=== PATIENT | female | born 1950 | race Caucasian/White ===

== ENCOUNTER 2016-12-27 11:39 | Day surgery (SDC) | payer MEDICARE ==
--- NOTE | 2016-12-27 08:42 | HP ---
PROCEDURE DATE: 12/27/16 HISTORY OF PRESENT ILLNESS: The patient is a 66 y/o who originally had nodular area in left inguinal area back in July. Whether there was just a node or whether any potential knot was unclear. She was scheduled for left inguinal exploration, node biopsy, possible hernia repair if indicated, possible mesh. However, at that time, her insurance changed and canceled the procedure. The office apparently rescheduled her as her insurance stayed. PAST MEDICAL HISTORY: Chronic obstructive pulmonary disease. CURRENT MEDICATIONS: Symbicort, DuoNebs, ProAir, lisinopril for hypertension, aspirin as well as antacid medication. ALLERGIES: NKDA. PAST SURGICAL HISTORY: She has had a tubal and in the past. FAMILY HISTORY: Breast and lung cancer. SOCIAL HISTORY: No alcohol abuse currently. Had CT abdomen and pelvis that showed fecal stasis. She had had prior cholecystectomy apparently. No known reported inguinal hernia. There did appear to be some adenopathy on my review in the inguinal area. PHYSICAL EXAMINATION: GENERAL: No acute distress. HEENT: Sclerae nonicteric. NECK: No JVD. CHEST: Equal excursion. Nonlabored breathing. CVS: Regular rate and rhythm. ABDOMEN: Soft. Left inguinal nodule or nodes. Unclear whether any small inguinal hernia or not. EXTREMITIES: No edema. NEURO: Alert, moving extremities grossly symmetrically. IMPRESSION: 1. LEFT INGUINAL ACHES. QUESTION OF WHETHER SHE HAS SOME ADENOPATHY. MAY OR MAY NOT HAVE SMALL HERNIA. FEEL SHE WOULD BENEFIT FROM LEFT INGUINAL EXPLORATION, POSSIBLE NODE BIOPSY, POSSIBLE HERNIA REPAIR IF INDICATED AT THE TIME. General risks of bleeding; infection; risk of hematoma or seroma formation or lymphocele formation; risk of lymphedema possibly requiring other treatments or compression therapy; possibility that should she have a hernia, may need mesh repair with risk of mesh infection possibly requiring removal; risk of ingrown hair or suture reaction; risk of aches, pains, burning, or numbness lower abdomen, groin, thigh, or pubic area possibly mcc or chronic in nature; possibility if she does have a hernia, may need to divide the round ligament to completely close the internal ring to minimize risk of recurrence pending operative findings. Otherwise, general risks of anesthesia, deep vein thrombosis, pulmonary embolism, or pneumonia; risk of aches, pains, burning, or numbness possibly long-term or chronic in nature possibly interfering with sexual function as well as if she does have a hernia and it is repaired, risk of recurrence.
[~2016-12-27 11:39] MED LIST: CEFAZOLIN 2 GM-D5W BAG** 50 ML IV ONE; Lactated Ringers 1,000 ML IV ONE; Pepcid 20 MG VIAL IV ONE; Sensorcaine 0.25% 10 ML ONE; Sodium Chloride 3 ML UD NEBULES IH ONE; Xopenex 1.25 MG/0.5 ML UD NEBULE IH ONE
[2016-12-27] MEDS ORDERED: Lactated Ringers 1,000 ML IV SCH (12:00)
[2016-12-27] MEDS ORDERED: CEFAZOLIN 2 GM-D5W BAG** 50 ML IV ONE (12:26)
[2016-12-27 15:30] VITALS: BP 116/69; PULSE 77; O2SAT 95
== END 2016-12-27 13:55 | disposition home or self-care (01) ==
LOC: SDC 11:39
PROVIDERS: ATTEND Surgery
DX: R59.0 Localized enlarged lymph nodes (principal); Z53.09 Procedure and treatment not carried out because of other contraindication; I10 Essential (primary) hypertension; J45.909 Unspecified asthma, uncomplicated; J44.9 Chronic obstructive pulmonary disease, unspecified
CPT/HCPCS: 94640; J0690

== ENCOUNTER 2016-12-28 07:24 | Observation (INO) | payer MEDICARE ==
[2016-12-28] MEDS ORDERED: FEVERALL 650 MG PR STA (07:52)
[2016-12-28] MEDS ORDERED: Zofran 4 MG/2 ML VIAL IV STA (07:52)
[2016-12-28] MEDS ORDERED: DUONEB 0.5-3 MG/3 ml Neb IH ONE ×2 (07:53→08:09)
[2016-12-28] MEDS ORDERED: FEVERALL 650 MG ONE (07:58)
[2016-12-28] MEDS ORDERED: FEVERALL 325 MG ONE (07:58)
[2016-12-28] MEDS ORDERED: Zofran 4 MG/2 ML VIAL ONE (07:58)
[2016-12-28] MEDS ORDERED: Sodium Chloride 0.9% 1000 ML 1,000 ML ONE (07:58)
--- NOTE | 2016-12-28 08:00 | ERPHSYRPT ---
- History of Present Illness Time Seen by Provider: 12/28/16 07:43 Source: patient, family (grand-daughter) Patient Subjective Stated Complaint: PT REPORTS SHE HAS HAD INCREASED COUGHING- LOW GRADE FEVER-UNABLE TO HAVE HERNIA SURGERY YESTERDAY-BEGAN VOMITING/DRY HEAVING THIS AM-STATES WHEN SHE VOMITS SHE HAS A HARD TIME GETTING HER BREATH BACK-STATES THAT SHE THINKS SHE HAS BRONCHITIS Triage Nursing Assessment: PT PALE WARM ET DRY-DRY HEAVES NOTED-ABD TENDER TO PALP-LUNGS DIMINISHED Physician History: CC: general weakness Hx: 66 y/o patient of Dr Su. She has hx of COPD. She was scheduled for hernia repair yesterday but had wet cough and elevated BUN/Creat so surgery was canceled and she was scheduled to see Dr Su today. She has increasing loose cough, dry heaves. Fever and chills. Severe general weakness so that she can not even sit up. Used her nebulizer this AM. No abd pain. Coughing phlegm. Timing/Duration: day(s) (2) Severity: severe Allergies/Adverse Reactions: clarithromycin [From Biaxin] Allergy (Intermediate, Verified 12/28/16 07:41) constipation cephalexin monohydrate [From Keflex] Adverse Reaction (Mild, Verified 12/28/16 07:41) constipation Home Medications: Aspirin 81 mg PO DAILY 03/09/16 [History] Budesonide/Formoterol Fumarate [Symbicort 160-4.5 Mcg Inhaler] 6 gm IH BID 03/09 [History] Ipratropium/Albuterol Sulfate [Iprat-Albut 0.5-3(2.5) mg/3 ml] 3 ml NEB UD 03/09 [History] Lisinopril/Hydrochlorothiazide [Lisinopril-Hctz 10-12.5 mg Tab] 1 each PO DAILY 03/09/16 [History] Hx Tetanus, Diphtheria Vaccination/Date Given: No Hx Influenza Vaccination/Date Given: Yes Hx Pneumococcal Vaccination/Date Given: Yes Immunizations Up to Date: Yes - Review of Systems Constitutional: Fever, Chills, Malaise, Weakness Eyes: No Symptoms Ears, Nose, & Throat: Nose Congestion Respiratory: Cough, Dyspnea, Wheezing Cardiac: No Chest Pain Abdominal/Gastrointestinal: Nausea, Vomiting, No Abdominal Pain, No Diarrhea Genitourinary Symptoms: No Dysuria Skin: No Rash Neurological: No Focal Weakness, No Headache, No Parasthesia All Other Systems: Reviewed and Negative - Past Medical History Pertinent Past Medical History: Yes Neurological History: No Pertinent History ENT History: Glaucoma Cardiac History: Hypertension Respiratory History: Asthma, COPD Endocrine Medical History: No Pertinent History Musculoskeletal History: Arthritis GI Medical History: GERD, Hernia History: No Pertinent History Psycho-Social History: No Pertinent History Female Reproductive Disorders: No Pertinent History - Past Surgical History Past Surgical History: Yes Neuro Surgical History: No Pertinent History Cardiac: No Pertinent History Respiratory: No Pertinent History Gastrointestinal: Cholecystectomy Genitourinary: No Pertinent History Musculoskeletal: No Pertinent History Female Surgical History: Section - Social History Smoking Status: Former smoker Exposure to second hand smoke: Yes Drug Use: none Patient Lives Alone: No - Nursing Vital Signs Nursing Vital Signs: Initial Vital Signs Temperature 101.2 F Temperature Source Rectal Pulse Rate 83 Respiratory Rate 26 Blood Pressure [] 97/52 Pain Intensity 5 - Physical Exam General Appearance: alert, other (frail, elderly lady appears short of breath and weak all over) Eye Exam: PERRL/EOMI Ears, Nose, Throat Exam: dry mucous membranes Neck Exam: normal inspection, non-tender, supple Respiratory Exam: respiratory distress (tachypneic), diminished breath sounds Cardiovascular Exam: regular rate/rhythm Gastrointestinal/Abdomen Exam: soft, No tenderness, No distention Back Exam: normal inspection Extremity Exam: normal inspection, normal range of motion Neurologic Exam: alert, oriented x 3, cooperative, sensation nml, No motor deficits Skin Exam: warm, dry, No rash SpO2 Interpretation: hypoxic, O2 applied SpO2: 91 Oxygen Delivery: Room Air - Course Nursing assessment & vital signs reviewed: Yes EKG Interpreted by Me: RATE (86), Sinus Rhythm, NORMAL AXIS, NORMAL INTERVALS ( QT 436), Non-specific ST Changes, Other (artifact obscures) - Radiology Exams cxr X-ray Interpretation: Discussed w/ radiologist (left midlung A/I, COPD) Ordered Tests: Active Orders 24 hr Category Date Time Status Piece Marker Small Arms STAT Care 12/28/16 07:52 Active Cath for Specimen-Straight STAT Care 12/28/16 07:52 Active EKG-ER Only STAT Care 12/28/16 07:52 Active IV Insertion STAT Care 12/28/16 07:52 Active Oxygen-ED Only NASAL CANNULA 2 lpm Care 12/28/16 07:52 Active Pulse Oximetry (ED) STAT Care 12/28/16 07:52 Active Rectal Temperature STAT Care 12/28/16 07:52 Active CHEST 1 VIEW (PORTABLE) Stat Exams 12/28/16 07:52 Completed BLOOD CULTURE Stat Lab 12/28/16 08:23 Received CBC W DIFF Stat Lab 12/28/16 08:00 Completed CMP Stat Lab 12/28/16 08:00 Completed CULTURE,URINE Stat Lab 12/28/16 08:15 Received Lactic Acid Urgent Lab 12/28/16 08:02 Completed MAGNESIUM Stat Lab 12/28/16 08:00 Completed TROPONIN Stat Lab 12/28/16 08:00 Completed UA Stat Lab 12/28/16 08:15 Completed VENOUS BLOOD GAS Stat Lab 12/28/16 08:02 Completed Respiratory Nebulizer STAT RT 12/28/16 07:54 Completed Respiratory Nebulizer STAT RT 12/28/16 09:37 Completed Medication Summary Generic Name Dose Route Start Last Admin Trade Name Freq PRN Reason Stop Dose Admin Sodium Chloride 1,000 mls @ 100 mls/hr 12/28/16 08:00 12/28/16 08:03 Sodium Chloride 0.9% 1000 Ml IV 01/27/17 07:59 100 mls/hr .Q10H SERGIO Administration Oseltamivir Phosphate 75 mg 12/28/16 10:00 12/28/16 09:44 Tamiflu 75mg Capsule PO 01/27/17 09:59 75 mg BID SERGIO Administration Discontinued Medications Generic Name Dose Route Start Last Admin Trade Name Freq PRN Reason Stop Dose Admin Acetaminophen 975 mg 12/28/16 07:52 12/28/16 08:04 Feverall 650 Mg CA 12/28/16 07:53 975 mg STAT STA Administration Acetaminophen Confirm 12/28/16 07:58 Feverall 650 Mg Administered 12/28/16 07:59 Dose 650 mg .ROUTE .STK-MED ONE Acetaminophen Confirm 12/28/16 07:58 Feverall 325 Mg Administered 12/28/16 07:59 Dose 325 mg .ROUTE .STK-MED ONE Albuterol Sulfate 2.5 mg 12/28/16 09:37 12/28/16 09:40 Proventil 2.5 Mg/3 Ml Neb IH 12/28/16 09:38 2.5 mg STAT ONE Administration Albuterol Sulfate Confirm 12/28/16 09:38 Proventil 2.5 Mg/3 Ml Neb Administered 12/28/16 09:39 Dose 2.5 mg IH .STK-MED ONE Albuterol/Ipratropium 3 ml 12/28/16 07:53 12/28/16 08:21 Duoneb 0.5-3 Mg/3 Ml Neb IH 12/28/16 07:54 3 ml STAT ONE Administration Albuterol/Ipratropium Confirm 12/28/16 08:09 Duoneb 0.5-3 Mg/3 Ml Neb Administered 12/28/16 08:10 Dose 3 ml IH .STK-MED ONE Sodium Chloride Confirm 12/28/16 07:58 Sodium Chloride 0.9% 1000 Ml Administered 12/28/16 07:59 Dose 1,000 mls @ ud .ROUTE .STK-MED ONE Methylprednisolone Sodium Succinate 125 mg 12/28/16 09:37 12/28/16 09:44 Solu-Medrol 125 Mg IV 12/28/16 09:38 125 mg STAT ONE Administration Methylprednisolone Sodium Succinate Confirm 12/28/16 09:41 Solu-Medrol 125 Mg Administered 12/28/16 09:42 Dose 125 mg .ROUTE .STK-MED ONE Ondansetron HCl 4 mg 12/28/16 07:52 12/28/16 08:04 Zofran 4 Mg/2 Ml Vial IV 12/28/16 07:53 4 mg STAT STA Administration Ondansetron HCl Confirm 12/28/16 07:58 Zofran 4 Mg/2 Ml Vial Administered 12/28/16 07:59 Dose 4 mg .ROUTE .STK-MED ONE Oseltamivir Phosphate Confirm 12/28/16 09:41 Tamiflu 75mg Capsule Administered 12/28/16 09:42 Dose 75 mg PO .STK-MED ONE Lab/Rad Data: Laboratory Result Diagrams 12/28/16 08:00 12/28/16 08:00 Laboratory Results 12/28/16 12/28/16 12/28/16 Range/Units 08:15 08:02 08:02 WBC (4.0-10.5) K/mm3 RBC (4.1-5.4) M/mm3 Hgb (12.0-16.0) gm/dl Hct (35-47) % MCV (78-100) fl MCH (26-32) pg MCHC (32-36) g/dl RDW (11.5-14.0) % Plt Count (150-450) K/mm3 MPV (6-9.5) fl Gran % (36.0-66.0) % Lymphocytes % (24.0-44.0) % Monocytes % (0.0-12.0) % Eosinophils % (0.00-5.0) % Basophils % (0.0-0.4) % Basophils # (0-0.4) VBG pH 7.45 H (7.32-7.42) VBG pCO2 at Pat Temp 37 L (42-55) mm/Hg VBG pO2 at Pat Temp 40 (25-40) mm/Hg VBG HCO3 25.7 (22-28) meq/L VBG O2 Sat (Moni) 81.7 L (95-100) VBG Base Excess 1.8 (-2.0-2.0) VBG Hemoglobin 14.0 VBG Carboxyhemoglobin 3.2 (0.0-6.9) % T HGB POC Potassium 3.4 L (3.5-5.1) Sodium (136-145) mEq/L Potassium (3.5-5.1) mEq/L Chloride (98-107) mEq/L Carbon Dioxide (21-32) mEq/L Anion Gap (5-15) MEQ/L BUN (9-20) mg/dL Creatinine (0.55-1.30) mg/dl Estimated GFR ML/MIN Glucose (70-110) MG/DL Lactic Acid 1.2 (0.4-2.0) Calcium (8.5-10.1) mg/dL Magnesium (1.8-2.4) mg/dL Total Bilirubin (0.2-1.0) mg/dL AST (15-37) U/L ALT (12-78) U/L Alkaline Phosphatase (46-116) U/L Troponin I (0.000-0.056) ng/ml Serum Total Protein (6.4-8.2) gm/dL Albumin (3.4-5.0) g/dL Ur Collection Type CATH Urine Color YELLOW (YELLOW) Urine Appearance CLEAR (CLEAR) Urine pH 5.5 (5-6) Ur Specific [place] 1.015 (1.005-1.025) Urine Protein NEGATIVE (Negative) Urine Glucose (UA) NEGATIVE (NEGATIVE) mg/dL Urine Ketones NEGATIVE (NEGATIVE) Urine Nitrite NEGATIVE (NEGATIVE) Urine Bilirubin NEGATIVE (NEGATIVE) Urine Urobilinogen 0.2 (0-1) mg/dL Urine WBC (Auto) NEGATIVE (NEGATIVE) Urine RBC (Auto) NEGATIVE (0-5) Armando/ul Influenza Type A Ag (NEGATIVE) Influenza Type B Ag (NEGATIVE) RSV (PCR) (Negative) Specimen Received 12/28/16 0812/28/16 12/28/16 12/28/16 Range/Units 08:00 08:00 08:00 WBC (4.0-10.5) K/mm3 RBC (4.1-5.4) M/mm3 Hgb (12.0-16.0) gm/dl Hct (35-47) % MCV (78-100) fl MCH (26-32) pg MCHC (32-36) g/dl RDW (11.5-14.0) % Plt Count (150-450) K/mm3 MPV (6-9.5) fl Gran % (36.0-66.0) % Lymphocytes % (24.0-44.0) % Monocytes % (0.0-12.0) % Eosinophils % (0.00-5.0) % Basophils % (0.0-0.4) % Basophils # (0-0.4) VBG pH (7.32-7.42) VBG pCO2 at Pat Temp (42-55) mm/Hg VBG pO2 at Pat Temp (25-40) mm/Hg VBG HCO3 (22-28) meq/L VBG O2 Sat (Moni) (95-100) VBG Base Excess (-2.0-2.0) VBG Hemoglobin VBG Carboxyhemoglobin (0.0-6.9) % T HGB POC Potassium (3.5-5.1) Sodium (136-145) mEq/L Potassium (3.5-5.1) mEq/L Chloride (98-107) mEq/L Carbon Dioxide (21-32) mEq/L Anion Gap (5-15) MEQ/L BUN (9-20) mg/dL Creatinine (0.55-1.30) mg/dl Estimated GFR ML/MIN Glucose (70-110) MG/DL Lactic Acid (0.4-2.0) Calcium (8.5-10.1) mg/dL Magnesium 1.6 L (1.8-2.4) mg/dL Total Bilirubin (0.2-1.0) mg/dL AST (15-37) U/L ALT (12-78) U/L Alkaline Phosphatase (46-116) U/L Troponin I < 0.017 (0.000-0.056) ng/ml Serum Total Protein (6.4-8.2) gm/dL Albumin (3.4-5.0) g/dL Ur Collection Type Urine Color (YELLOW) Urine Appearance (CLEAR) Urine pH (5-6) Ur Specific [place] (1.005-1.025) Urine Protein (Negative) Urine Glucose (UA) (NEGATIVE) mg/dL Urine Ketones (NEGATIVE) Urine Nitrite (NEGATIVE) Urine Bilirubin (NEGATIVE) Urine Urobilinogen (0-1) mg/dL Urine WBC (Auto) (NEGATIVE) Urine RBC (Auto) (0-5) Armando/ul Influenza Type A Ag POSITIVE (NEGATIVE) Influenza Type B Ag NEGATIVE (NEGATIVE) RSV (PCR) NEGATIVE (Negative) Specimen Received 12/28/16 12/28/16 Range/Units 08:00 08:00 WBC 14.8 H (4.0-10.5) K/mm3 RBC 4.18 (4.1-5.4) M/mm3 Hgb 13.7 (12.0-16.0) gm/dl Hct 40.9 (35-47) % MCV 97.8 (78-100) fl MCH 32.8 H (26-32) pg MCHC 33.5 (32-36) g/dl RDW 13.4 (11.5-14.0) % Plt Count 284 (150-450) K/mm3 MPV 10.4 H (6-9.5) fl Gran % 87.9 H (36.0-66.0) % Lymphocytes % 5.9 L (24.0-44.0) % Monocytes % 5.0 (0.0-12.0) % Eosinophils % 1.1 (0.00-5.0) % Basophils % 0.1 (0.0-0.4) % Basophils # 0.02 (0-0.4) VBG pH (7.32-7.42) VBG pCO2 at Pat Temp (42-55) mm/Hg VBG pO2 at Pat Temp (25-40) mm/Hg VBG HCO3 (22-28) meq/L VBG O2 Sat (Moni) (95-100) VBG Base Excess (-2.0-2.0) VBG Hemoglobin VBG Carboxyhemoglobin (0.0-6.9) % T HGB POC Potassium (3.5-5.1) Sodium 140 (136-145) mEq/L Potassium 3.5 (3.5-5.1) mEq/L Chloride 105 (98-107) mEq/L Carbon Dioxide 24.2 (21-32) mEq/L Anion Gap 13.9 (5-15) MEQ/L BUN 20 (9-20) mg/dL Creatinine 0.88 (0.55-1.30) mg/dl Estimated GFR > 60 ML/MIN Glucose 115 H (70-110) MG/DL Lactic Acid (0.4-2.0) Calcium 9.0 (8.5-10.1) mg/dL Magnesium (1.8-2.4) mg/dL Total Bilirubin 0.4 (0.2-1.0) mg/dL AST 33 (15-37) U/L ALT 32 (12-78) U/L Alkaline Phosphatase 70 (46-116) U/L Troponin I (0.000-0.056) ng/ml Serum Total Protein 7.3 (6.4-8.2) gm/dL Albumin 3.9 (3.4-5.0) g/dL Ur Collection Type Urine Color (YELLOW) Urine Appearance (CLEAR) Urine pH (5-6) Ur Specific [place] (1.005-1.025) Urine Protein (Negative) Urine Glucose (UA) (NEGATIVE) mg/dL Urine Ketones (NEGATIVE) Urine Nitrite (NEGATIVE) Urine Bilirubin (NEGATIVE) Urine Urobilinogen (0-1) mg/dL Urine WBC (Auto) (NEGATIVE) Urine RBC (Auto) (0-5) Armando/ul Influenza Type A Ag (NEGATIVE) Influenza Type B Ag (NEGATIVE) RSV (PCR) (Negative) Specimen Received - Progress Progress Note: 12/28/16 09:39 Flu positive. Explained labs to pt and daughter. She is considering home or admission. 12/28/16 10:11 Pt feels some better. Still too weak. Called Dr Su for observation for flu and COPD exacerbation. Discussed with .: Zay Will see patient in: hospital (observation) Counseled pt/family regarding: lab results, diagnosis, need for follow-up, rad results - Departure Time of Disposition: 10:11 Departure Disposition: Observation Clinical Impression: COPD with exacerbation, Influenza A Condition: Fair Critical Care Time: No Referrals: RON SU [Primary Care Provider] -
[2016-12-28 08:03] LABS: VBG BASE EXCESS 1.8 (-2.0-2.0); VBG CARBOXYHEMOGLOBIN 3.2 % T HGB (0.0-6.9); VBG HCO3- 25.7 meq/L (22-28); VBG O2 SATURATION 81.7 (95-100); VBG POTASSIUM 3.4 (3.5-5.1); VBG pH 7.45 (7.32-7.42)
[2016-12-28] MEDS: Sodium Chloride 0.9% 1000 ML 1,000 ML IV SCH ×2 (08:03→23:02)
[2016-12-28 08:14] LABS: BASOPHIL % 0.1 % (0.0-0.4); Eosinophil % 1.1 % (0.00-5.0); Granulocytes % 87.9 % (36.0-66.0); Lymphocytes % 5.9 % (24.0-44.0); Mean Cell Volume 97.8 fl (78-100); Mean Corpuscular Hemoglobin 32.8 pg (26-32); Mean Platelet Volume 10.4 fl (6-9.5); Platelet Count 284 K/mm3 (150-450); Red Blood Count 4.18 M/mm3 (4.1-5.4); Red Cell Distribution Width 13.4 % (11.5-14.0); White Blood Count 14.8 K/mm3 (4.0-10.5)
[2016-12-28 08:24] LABS: COMPLETE URINE MICROSCOPIC? NO; Collection Type CATH; Ph 5.5 (5-6)
[2016-12-28 08:34] LABS: ALBUMIN 3.9 g/dL (3.4-5.0); ALKALINE PHOSPHATASE 70 U/L (46-116); ANION GAP 13.9 MEQ/L (5-15); BILIRUBIN,TOTAL 0.4 mg/dL (0.2-1.0); BLOOD UREA NITROGEN 20 mg/dL (9-20); CHLORIDE 105 mEq/L (98-107); Carbon Dioxide 24.2 mEq/L (21-32); Glucose 115 MG/DL (70-110); Potassium 3.5 mEq/L (3.5-5.1); SGOT/AST 33 U/L (15-37); SGPT/ALT 32 U/L (12-78); SODIUM 140 mEq/L (136-145); Total Protein 7.3 gm/dL (6.4-8.2)
--- NOTE | 2016-12-28 08:44 | XRAY ---
Indication: Cough, short of breath, and flulike symptoms. Comparison: March 09, 2016. Portable chest again hyperinflated with a few calcified granulomas. New subtle left mid peripheral infiltrate versus atelectasis. Remaining lungs clear. Heart and mediastinal structures within normal limits for AP portable technique. Bony thorax intact. Impression: Left midlung peripheral infiltrate/atelectasis. Correlate clinically. Stable COPD and evidence for old granulomatous disease.
[2016-12-28] MEDS ORDERED: solu-MEDROL 125 MG IV ONE (09:37)
[2016-12-28] MEDS ORDERED: PROVENTIL 2.5 MG/3 ML NEB IH ONE ×2 (09:37→09:38)
[2016-12-28] MEDS ORDERED: Tamiflu 75MG Capsule PO ONE (09:41)
[2016-12-28] MEDS ORDERED: solu-MEDROL 125 MG ONE (09:41)
[2016-12-28] MEDS: Tamiflu 75MG Capsule PO SCH ×2 (09:44→22:53)
[2016-12-28] MEDS ORDERED: Vibramycin 100 MG ONE (10:16)
[2016-12-28] MEDS: Vibramycin 100 MG PO SCH (10:18)
[2016-12-28] MEDS ORDERED: TYLENOL 325 MG PO PRN (10:35)
[2016-12-28] MEDS ORDERED: Zofran 4 MG/2 ML VIAL IV PRN (10:35)
[2016-12-28] MEDS: solu-MEDROL 125 MG IV SCH ×2 (11:30→17:06)
[2016-12-28] MEDS: Protonix 40MG Tablet PO SCH (12:12)
[2016-12-28] MEDS ORDERED: NORCO 5/325 MG PO PRN (12:42)
[2016-12-28] MEDS ORDERED: Sodium Chloride 0.9% 500 ML 500 ML IV ONE (12:58)
--- NOTE | 2016-12-28 13:49 | HP ---
HISTORY OF PRESENT ILLNESS: This is a 66 year-old lady who developed increasing cough with shortness of breath last night. She states she is also having chills. She presented to the emergency department for evaluation and was found to have left mid lung infiltrate versus atelectasis and positive for influenza A. The patient yesterday had outpatient surgery for a scheduled surgery for inguinal mass/possible hernia but was sent home without having a surgery as they noted she was still wheezing on her lung exam. She has a history of long standing chronic obstructive pulmonary disease and used to see a mgmt consultant before she moved here. She is actually on long-term disability because of the chronic obstructive pulmonary disease. The patient reports that she had some chest pain across the top of her chest like she is coming down with bronchitis. She also had some vomiting and then some dry heaves. She reports that she is feeling a little bit better with Albuterol treatments here but did feel very weak and tired. REVIEW OF SYSTEMS: She denies any abdominal pain. She had some tenderness below where the left inguinal hernia/mass located. She has a cough that is nonproductive. No diarrhea. No rashes. No lower extremity edema. She has some fatigue. PAST MEDICAL HISTORY: Chronic obstructive pulmonary disease. She has hospitalized one to two times. History of having a mgmt consultant in [place]. Hypertension. Osteoporosis. PAST SURGICAL HISTORY: section. Cholecystectomy. Tubal ligation. MEDICATIONS: Aspirin 81 mg p.o. daily, Symbicort 6 gm inhaled b.i.d., DuoNeb as directed, lisinopril hydrochlorothiazide 10/12.5 mg 1 tablet p.o. daily. ALLERGIES: KEFLEX, BIAXIN. SOCIAL HISTORY: She quit smoking October 2016. She is retired and is on disability. Denies any alcohol use. FAMILY HISTORY: Her mother had breast cancer. Father had lung cancer. She has a sister with osteoporosis. PHYSICAL EXAMINATION: VITAL SIGNS: Temperature current 98.6F, temperature max 101.2F, heart rate 78 to 84, respiratory rate 18 to 26, blood pressure 85 to 97 over 41 to 60. Oxygen saturation 91 to 94% on room air. GENERAL: The patient is a pleasant lady lying in bed with tachypnea with mild retractions. LUNGS: Distant breath sounds. No crackles or wheezes are appreciated. Breath sounds are equal. CVS: Heart has a regular rate and rhythm. No murmurs, gallops or rubs. She has +2 radial pulses bilaterally. ABDOMEN: Soft, nontender, nondistended. The left inguinal area has a palpable nodule that is slightly tender without any overlying erythema. It has been marked from possible surgery that was scheduled for yesterday. EXTREMITIES: No clubbing, cyanosis or edema. SKIN: Warm, dry and intact. LABORATORY DATA AND TESTS: White blood cell count was 14,800 with 87% granulocytes, 5% lymphocytes. Glucose 115, magnesium 1.6, troponin less than 0.017. UA was negative. Influenza A was positive. Respiratory syncytial virus and influenza B were negative. Chest x-ray was read as left mid lung peripheral infiltrate/atelectasis, stable chronic obstructive pulmonary disease. Please see the radiologist dictation for full report. ASSESSMENT AND PLAN: 1) Influenza A. Will continue with Tamiflu 75 mg p.o. b.i.d., continue with breathing treatments as needed. 2) Chronic obstructive pulmonary disease exacerbation. She has been started on doxycycline as well as IV Solu-Medrol. She has an outpatient mgmt consultant consult. Continue oxygen as needed and breathing treatments. 3) Pneumonia. Will continue with the doxycycline, will check CBC in the morning. 4) Deep venous thrombosis prophylaxis. Will start her on Lovenox.
[2016-12-28] MEDS: ENOXAPARIN SODIUM SQ SCH (14:21)
[2016-12-28] MEDS: ECOTRIN 81 MG PO SCH (14:21)
[2016-12-28] MEDS: DUONEB 0.5-3 MG/3 ml Neb IH SCH ×3 (14:46→19:05)
[2016-12-28] MEDS: PATIENT OWN MEDICATION IH SCH (19:05)
[2016-12-28] MEDS ORDERED: NON-FORMULARY ITEM (Budesonide/Formoterol Fumarate [Symbicort 160-4.5 Mcg Inhaler] 6 GM) IH SCH (22:00)
[2016-12-29] MEDS: DUONEB 0.5-3 MG/3 ml Neb IH SCH ×7 (00:17→22:51)
[2016-12-29] MEDS: solu-MEDROL 125 MG IV SCH ×5 (00:45→23:57)
[2016-12-29 06:00] LABS: Mean Cell Volume 99.1 fl (78-100); Mean Corpuscular Hemoglobin 33.1 pg (26-32); Mean Platelet Volume 10.5 fl (6-9.5); Platelet Count 224 K/mm3 (150-450); Red Blood Count 3.35 M/mm3 (4.1-5.4); Red Cell Distribution Width 13.6 % (11.5-14.0); White Blood Count 11.8 K/mm3 (4.0-10.5)
[2016-12-29 06:10] LABS: BLOOD UREA NITROGEN 20 mg/dL (9-20); CHLORIDE 109 mEq/L (98-107); Carbon Dioxide 23.2 mEq/L (21-32); Glucose 125 MG/DL (70-110); Potassium 3.6 mEq/L (3.5-5.1); SODIUM 141 mEq/L (136-145)
[2016-12-29 06:40] LABS: ANISOCYTOSIS 1+; BAND 2 % (0.0-2.0); Platelet Estimate NORMAL (NORMAL); Poikilocytosis 1+; Total Cells Counted 100
[2016-12-29] MEDS: PATIENT OWN MEDICATION IH SCH ×2 (07:00→19:41)
[2016-12-29] MEDS: Vibramycin 100 MG PO SCH ×2 (08:54→22:08)
[2016-12-29] MEDS: ENOXAPARIN SODIUM SQ SCH (08:54)
[2016-12-29] MEDS: Protonix 40MG Tablet PO SCH (08:55)
[2016-12-29] MEDS: Tamiflu 75MG Capsule PO SCH (08:55)
[2016-12-29] MEDS: Sodium Chloride 0.9% 1000 ML 1,000 ML IV SCH (08:55)
[2016-12-29] MEDS: ECOTRIN 81 MG PO SCH (08:55)
[2016-12-29] MEDS ORDERED: Dextrose 5% -0.45 NaCl 1000 ML 1,000 ML IV SCH (09:15)
[2016-12-29] MEDS ORDERED: PREVNAR 13 SYRINGE IM ONE (10:00)
--- NOTE | 2016-12-29 17:05 | PCM.NOTE ---
Date and Time: 12/29/16 1701 Subjective Assessment: She reports she got some rest last night. She still feels tired. She had a desaturation to the 80% last night and had to be placed back on oxygen. - Review of Systems Constitutional: Fever, Fatigue Eyes: No Symptoms Ears, Nose, & Throat: No Symptoms Respiratory: Cough, Short Of Breath Cardiac: No Symptoms Abdominal/Gastrointestinal: No Symptoms Genitourinary Symptoms: No Symptoms Musculoskeletal: No Symptoms Skin: No Symptoms Neurological: No Symptoms Objective Exam General Appearance: no apparent distress Neurologic Exam: alert, cooperative Skin Exam: normal color, warm, dry, No rash Respiratory Exam: diminished breath sounds, prolonged expirations, No respiratory distress, No accessory muscle use, No crackles/rales, No rhonchi, No wheezing Cardiovascular Exam: regular rate/rhythm, normal heart sounds, No murmur, No friction rub, No gallop Gastrointestinal/Abdomen Exam: soft, normal bowel sounds, No tenderness, No distention, No mass, No guarding Extremity Exam: other (no c/c/e) OBJECTIVE DATA Vital Signs: Vital Signs - 24 hr Temp Pulse Resp BP Pulse Ox 12/29/16 16:03 97.8 F 58 L 20 108/55 96 12/29/16 14:56 20 L 16 89 L 12/29/16 12:16 97.9 F 74 20 109/54 96 12/29/16 10:52 73 16 94 L 12/29/16 07:21 98.1 F 93 H 20 90/68 97 12/29/16 07:13 71 18 97 12/29/16 04:00 99.4 F 86 18 90/49 97 12/29/16 03:49 71 20 97 12/29/16 00:17 85 20 87 L 12/29/16 00:00 23 12/28/16 23:53 98.9 F 84 23 90/46 95 12/28/16 20:00 26 H 12/28/16 19:55 99.1 F 88 26 H 97/52 96 12/28/16 19:05 88 26 H 96 Oxygen-Last 24 hours O2 Percentage 2 Liters = 28% O2 Percentage 2 Liters = 28% O2 Percentage 2 Liters = 28% O2 Percentage 2 Liters = 28% O2 Percentage 2 Liters = 28% Pain Assessment - Last Documented Pain Intensity 0 Pain Scale Used 0-10 Pain Scale Intake and Output: Intake & Output 12/27/16 12/28/16 12/29/16 12/30/16 06:59 06:59 06:59 06:59 Intake Total 3264 840 Output Total 500 Balance 3264 340 Weight 44.407 kg Lab Results: Lab Results-Last 24 Hours 12/29/16 12/29/16 Range/Units 05:30 05:30 WBC 11.8 H (4.0-10.5) K/mm3 RBC 3.35 L (4.1-5.4) M/mm3 Hgb 11.1 L (12.0-16.0) gm/dl Hct 33.2 L (35-47) % MCV 99.1 (78-100) fl MCH 33.1 H (26-32) pg MCHC 33.4 (32-36) g/dl RDW 13.6 (11.5-14.0) % Plt Count 224 (150-450) K/mm3 MPV 10.5 H (6-9.5) fl Segmented Neutrophils 97 H (36.0-66.0) % Band Neutrophils 2 (0.0-2.0) % Monocytes (Manual) 1 (0.0-12.0) % Platelet Estimate NORMAL (NORMAL) Poikilocytosis 1+ Anisocytosis 1+ Sodium 141 (136-145) mEq/L Potassium 3.6 (3.5-5.1) mEq/L Chloride 109 H (98-107) mEq/L Carbon Dioxide 23.2 (21-32) mEq/L Anion Gap 12.0 (5-15) MEQ/L BUN 20 (9-20) mg/dL Creatinine 0.85 (0.55-1.30) mg/dl Estimated GFR > 60 ML/MIN Glucose 125 H (70-110) MG/DL Calcium 8.3 L (8.5-10.1) mg/dL Assessment/Plan (1) Influenza A Current Visit: Yes Status: Acute Assessment & Plan: Continue Tamiflu and symptomatic and supportive treatment. Slowly improving. Code(s): J10.1 - FLU DUE TO OTH IDENT INFLUENZA VIRUS W OTH RESP MANIFEST (2) COPD with exacerbation Current Visit: Yes Status: Acute Assessment & Plan: Continue doxycycline and IV steroids. Code(s): J44.1 - CHRONIC OBSTRUCTIVE PULMONARY DISEASE W (ACUTE) EXACERBATION (3) Pneumonia Current Visit: Yes Status: Acute Qualifiers: Laterality: left Lung location: unspecified part of lung Assessment & Plan: Continue doxycycline. Code(s): J18.9 - PNEUMONIA, UNSPECIFIED ORGANISM (4) DVT prophylaxis Current Visit: Yes Status: Acute Code(s): [id number] -
[2016-12-29] MEDS: OSELTAMIVIR PHOSPHATE 30 MG CAP PO SCH (22:09)
[2016-12-30] MEDS: DUONEB 0.5-3 MG/3 ml Neb IH SCH ×3 (03:30→10:20)
[2016-12-30 05:42] LABS: BASOPHIL % 0.1 % (0.0-0.4); Granulocytes % 88.3 % (36.0-66.0); Lymphocytes % 6.5 % (24.0-44.0); Mean Cell Volume 99.7 fl (78-100); Mean Corpuscular Hemoglobin 32.4 pg (26-32); Mean Platelet Volume 10.8 fl (6-9.5); Monocytes % 5.1 % (0.0-12.0); Platelet Count 228 K/mm3 (150-450); Red Blood Count 3.39 M/mm3 (4.1-5.4); White Blood Count 10.9 K/mm3 (4.0-10.5)
[2016-12-30] MEDS: solu-MEDROL 125 MG IV SCH ×2 (05:53→11:25)
[2016-12-30 06:04] LABS: ANION GAP 13.2 MEQ/L (5-15); BLOOD UREA NITROGEN 18 mg/dL (9-20); CHLORIDE 109 mEq/L (98-107); Carbon Dioxide 24.8 mEq/L (21-32); Glucose 142 MG/DL (70-110); Potassium 3.6 mEq/L (3.5-5.1); SODIUM 143 mEq/L (136-145)
[2016-12-30] MEDS: PATIENT OWN MEDICATION IH SCH (06:45)
--- NOTE | 2016-12-30 09:48 | PCM.DCORD ---
- Discharge Discharge Date: 12/30/16 Disposition: Home, Self-Care Condition: Fair Prescriptions: New Prednisone 20 mg [Deltasone 20 mg] 20 mg PO UD #18 tablet Oseltamivir Phosphate [Oseltamivir Phosphate 30 mg Cap] 30 mg PO BID #5 capsule Doxycycline Hyclate 100 mg [Vibramycin 100 MG] 100 mg PO BID #15 tab Continue Budesonide/Formoterol Fumarate [Symbicort 160-4.5 Mcg Inhaler] 6 gm IH BID Ipratropium/Albuterol Sulfate [Iprat-Albut 0.5-3(2.5) mg/3 ml] 3 ml NEB UD Aspirin 81 mg PO DAILY Discontinued Lisinopril/Hydrochlorothiazide [Lisinopril-Hctz 10-12.5 mg Tab] 1 each PO DAILY Additional Instructions: Home oxygen per respiratory therapy home oxygen evaluation. Follow up with: RON SU [Primary Care Provider] - 01/07/17 10:30 am MARILYN VAUGHAN [ACTIVE STAFF] - 1 Week
[2016-12-30] MEDS: ECOTRIN 81 MG PO SCH (10:03)
[2016-12-30] MEDS: ENOXAPARIN SODIUM SQ SCH (10:03)
[2016-12-30] MEDS: Protonix 40MG Tablet PO SCH (10:04)
[2016-12-30] MEDS: OSELTAMIVIR PHOSPHATE 30 MG CAP PO SCH (10:05)
[2016-12-30] MEDS: Vibramycin 100 MG PO SCH (10:05)
[2016-12-30 11:08] VITALS: BP 106/58; PULSE 58; O2SAT 96
--- NOTE | 2016-12-30 11:45 | DS ---
DISCHARGE DIAGNOSES: 1) INFLUENZA A. 2) CHRONIC OBSTRUCTIVE PULMONARY DISEASE EXACERBATION. 3) PNEUMONIA. DISCHARGE PHYSICAL EXAMINATION: VITALS: Temperature current 97.8F, temperature max 98.7F, heart rate 58 to 94, respiratory rate 18 to 22, blood pressure 99 to 109 over 51 to 56. Oxygen saturation 85% on room air, 94% on 2 liters nasal cannula. GENERAL: The patient is sitting up in bed in no acute distress. CVS: She has a regular rate and rhythm. No murmurs, gallops or rubs are appreciated. CHEST: She has distant breath sounds with prolonged expiration. No crackles or wheezes. She has equal breath sounds. ABDOMEN: Soft, nontender, nondistended with normal bowel sounds. EXTREMITIES: She has some mild swelling of her toes but no pitting edema of her legs. SKIN: Warm, dry and intact. HOSPITAL COURSE: 1) INFLUENZA A: She tested positive for this in the emergency department. Tamiflu was first started at 75 mg b.i.d. and then adjusted for her creatinine clearance and approximately 40 per the pharmacy and she was changed to 30 mg b.i.d. and plan to finish out a five day course of this. She was afebrile within the last 24 hours before her discharge. 2) CHRONIC OBSTRUCTIVE PULMONARY DISEASE EXACERBATION: She has long standing history of chronic obstructive pulmonary disease. She does not have a local drilling assistant here but plans to see one as she is needing surgery clearance. She was started on IV steroids as well as doxycycline during her hospitalization. I plan to complete a ten day course of doxycycline 100 mg p.o. b.i.d. and start her on oral prednisone at 60 mg daily for three days and then 40 mg daily for three days and 20 mg daily for three days and will continue with breathing treatments. She is going to have home oxygen evaluation. She reports a long time ago she was home oxygen but then stopped using it. She stated it started to give her headaches, will plan to have this set up for her before her discharge. 3) PNEUMONIA: Her chest x-ray on admission was read as a left mid lung infiltrate with atelectasis. The patient again was started on doxycycline which was continued for a full ten day course. DISCHARGE MEDICATIONS: She may resume all of her home medications and take doxycycline, prednisone and Tamiflu as stated above. FOLLOW UP: She is to follow up with myself in the clinic as well as Dr. Ayush Oconnor as she needs surgery clearance for her chronic obstructive pulmonary disease. DISPOSITION: The patient was discharged to home in fair condition.
== END 2016-12-30 14:20 | disposition home or self-care (01) ==
LOC: ED 07:24 → MED SURG 10:28
PROVIDERS: ADMIT Internal Medicine; ATTEND Internal Medicine
DX: J10.1 Influenza due to other identified influenza virus with other respiratory manifestations (principal); J44.1 Chronic obstructive pulmonary disease with (acute) exacerbation; J18.9 Pneumonia, unspecified organism; I10 Essential (primary) hypertension; M81.0 Age-related osteoporosis without current pathological fracture; Z79.899 Other long term (current) drug therapy; Z80.3 Family history of malignant neoplasm of breast; Z80.1 Family history of malignant neoplasm of trachea, bronchus and lung
CPT/HCPCS: 36000; 36415; 71010; 80048; 80053; 81002; 82805; 83605; 83735; 84484; 85025; 87040; 87086; 87631; 90670; 93005; 93041; 94640; 94760; 96360; 96361; 96374; 96375; 99285; G0378; J1650; J2405; J2930; P9612

== ENCOUNTER 2018-05-30 14:56 | Emergency (ER) | payer MEDICARE ==
[2018-05-30] MEDS ORDERED: Nubain 10 MG/ML ONE (15:26)
--- NOTE | 2018-05-30 15:27 | ERPHSYRPT ---
- History of Present Illness Time Seen by Provider: 05/30/18 15:22 Historian: patient Exam Limitations: no limitations Patient Subjective Stated Complaint: Pt states "I had a biopsy on my lower abdomen this morning and they put quite a bit of numbing agent in but it wasnt enough and it still hurts. It feels like the needle is still in there." Triage Nursing Assessment: Pt alert and oriented X 3, skin pwd PT ambulates hunched over, guarding the biopsy site, groaning, moaning, and tachypneic. Physician History: The patient is a 67-year-old female with her daughter complaining of lower abdominal wall pain since having a punch biopsy completed this morning by Dr. Denson the radiologist. Dr. Denson calls me to give me information about the patient. He states the patient had a 1-1/2 cm mass in the lower abdomen that was evaluated by punch biopsy. He states he had to give her 30 mL of lidocaine to control her pain. He did not prescribe any narcotics for her. The daughter now states that the lidocaine has worn off and the patient is in pain at the site of the punch biopsy. The patient called her family doctor who has not returned her call. The patient's past medical history is significant for COPD and hypertension. Timing/Duration: today Activities at Onset: none Quality: sharpness, stabbing Abdominal Pain Onset Location: LLQ Pain Radiation: no radiation Severity of Pain-Max: severe Severity of Pain-Current: severe Modifying Factors: Improves With: nothing Associated Symptoms: denies symptoms Previous symptoms: no prior history Allergies/Adverse Reactions: clarithromycin [From Biaxin] Allergy (Intermediate, Verified 12/28/16 07:41) constipation cephalexin monohydrate [From Keflex] Adverse Reaction (Mild, Verified 12/28/16 07:41) constipation Home Medications: Aspirin 81 mg PO DAILY 03/09/16 [History] Budesonide/Formoterol Fumarate [Symbicort 160-4.5 Mcg Inhaler] 6 gm IH BID 03/09 [History] Ipratropium/Albuterol Sulfate [Iprat-Albut 0.5-3(2.5) mg/3 ml] 3 ml NEB UD 03/09 [History] Hx Tetanus, Diphtheria Vaccination/Date Given: No Hx Influenza Vaccination/Date Given: Yes Hx Pneumococcal Vaccination/Date Given: Yes Immunizations Up to Date: Yes - Review of Systems Constitutional: No Fever, No Chills Eyes: No Symptoms Ears, Nose, & Throat: No Symptoms Respiratory: No Cough, No Dyspnea Cardiac: No Chest Pain, No Edema, No Syncope Abdominal/Gastrointestinal: Abdominal Pain, No Nausea, No Vomiting, No Diarrhea Genitourinary Symptoms: No Dysuria Musculoskeletal: No Back Pain, No Neck Pain Skin: Other (punch biopsy) Neurological: No Dizziness, No Focal Weakness, No Sensory Changes Psychological: No Symptoms Endocrine: No Symptoms Hematologic/Lymphatic: No Symptoms Immunological/Allergic: No Symptoms All Other Systems: Reviewed and Negative - Past Medical History Pertinent Past Medical History: Yes Neurological History: No Pertinent History ENT History: Cataracts, Glaucoma Cardiac History: Hypertension Respiratory History: Asthma, COPD Endocrine Medical History: No Pertinent History Musculoskeletal History: Arthritis GI Medical History: GERD, Hernia History: No Pertinent History Psycho-Social History: No Pertinent History Female Reproductive Disorders: No Pertinent History - Past Surgical History Past Surgical History: Yes Neuro Surgical History: No Pertinent History Cardiac: No Pertinent History Respiratory: No Pertinent History Gastrointestinal: Cholecystectomy Genitourinary: No Pertinent History Musculoskeletal: No Pertinent History Female Surgical History: Section, Tubal Ligation - Social History Smoking Status: Former smoker Exposure to second hand smoke: Yes Drug Use: none Patient Lives Alone: No - Female History Hx Now: No - Nursing Vital Signs Nursing Vital Signs: Initial Vital Signs Temperature 99.3 F 05/30/18 15:00 Pulse Rate 102 H 05/30/18 15:00 Respiratory Rate 20 05/30/18 15:00 Blood Pressure 177/83 05/30/18 15:00 O2 Sat by Pulse Oximetry 96 05/30/18 15:00 Pain Scale Pain Intensity 4 - Physical Exam General Appearance: moderate distress, thin Eye Exam: PERRL/EOMI, eyes nml inspection Ears, Nose, Throat Exam: normal ENT inspection, pharynx normal, moist mucous membranes Neck Exam: normal inspection, non-tender, supple, full range of motion Respiratory Exam: normal breath sounds, lungs clear, No respiratory distress Cardiovascular Exam: regular rate/rhythm, normal heart sounds Gastrointestinal/Abdomen Exam: tenderness (LLQ; biopsy site is covered with bandaide) Pelvic Exam: not done Rectal Exam: not done Back Exam: normal inspection, normal range of motion, No CVA tenderness, No vertebral tenderness Extremity Exam: normal inspection, normal range of motion, pelvis stable Neurologic Exam: alert, oriented x 3, cooperative, normal mood/affect, nml cerebellar function, sensation nml, No motor deficits Skin Exam: normal color, warm, dry SpO2 Interpretation: normal SpO2: 96 Oxygen Delivery: Room Air - Radiology Exams Abdomen X-ray Interpretation: Reviewed by me, Teleradiologist Report (per Dr Denson), Negative, Other (fecal stasis) Ordered Tests: Active Orders 24 hr Category Date Time Status IV Insertion STAT Care 05/30/18 15:20 Active KUB Stat Exams 05/30/18 15:20 Completed Medication Summary Discontinued Medications Generic Name Dose Route Start Last Admin Trade Name Freq PRN Reason Stop Dose Admin Nalbuphine HCl 10 mg 05/30/18 15:21 05/30/18 15:29 Nubain 10 Mg/Ml IV 05/30/18 15:22 10 mg STAT ONE Administration Nalbuphine HCl Confirm 05/30/18 15:26 Nubain 10 Mg/Ml Administered 05/30/18 15:27 Dose 10 mg .ROUTE .STK-MED ONE - Progress Progress: improved Discussed with : Zay Counseled pt/family regarding: diagnosis, rad results - Departure Time of Disposition: 16:48 Departure Disposition: Home Clinical Impression: Pain at surgical site Condition: Stable Critical Care Time: No Referrals: RNO SU [Primary Care Provider] - Additional Instructions: You have pain had a recent biopsy site. You were given Nubain 10 mg by IV in the ER as well as Zofran 4 mg by IV. Take Zofran 4 mg ODT every 6 hours as needed for nausea. Take [place] one tablet every 4-6 hours as needed for pain. Follow-up with your primary medical doctor tomorrow if the condition persists. Prescriptions: Ondansetron ODT 4 MG [Zofran Odt 4 mg] 1 tab PO Q6H PRN PRN #10 tab.rapdis PRN Reason: Nausea/Vomiting Hydrocodone/APAP 5/325 [[place] 5/325 mg] 1 each PO Q4-6HPRN PRN #6 tablet MDD 6 PRN Reason: Pain
[2018-05-30] MEDS: Nubain 10 MG/ML IV ONE (15:29)
--- NOTE | 2018-05-30 16:32 | XRAY ---
Indication: Left lower abdominal wall biopsy site pain. Comparison: None KUB nonacute and nonobstructed with moderate diffuse scattered colonic fecal debris and cholecystectomy clips. Remaining solid organs unremarkable. Osseous structures intact with L5-S1 degenerative facet arthropathy. Lung bases clear. Impression: Fecal stasis without obstruction.
[2018-05-30] MEDS ORDERED: TORAdol 30 mg Injection ONE (16:58)
[2018-05-30] MEDS ORDERED: Zofran 4 MG/2 ML VIAL ONE (16:58)
[2018-05-30] MEDS: TORAdol 30 mg Injection IV ONE (16:59)
[2018-05-30] MEDS: Zofran 4 MG/2 ML VIAL IV ONE (16:59)
[2018-05-30 17:46] VITALS: BP 167/68; PULSE 88; O2SAT 199
== END 2018-05-30 17:46 | disposition home or self-care (01) ==
LOC: ED 14:56
DX: G89.18 Other acute postprocedural pain (principal); R10.32 Left lower quadrant pain; J44.9 Chronic obstructive pulmonary disease, unspecified; I10 Essential (primary) hypertension
CPT/HCPCS: 36000; 38505; 74018; 96374; 96375; 99284; J1885; J2300; J2405

== ENCOUNTER 2018-12-24 02:33 | Observation (INO) | payer MEDICARE ==
[2018-12-24] MEDS ORDERED: Zofran 4 MG/2 ML VIAL ONE (03:12)
[2018-12-24] MEDS ORDERED: Pepcid 20 MG VIAL IV ONE ×2 (03:27→03:38)
[2018-12-24] MEDS ORDERED: PROTONIX 40 MG IV IV ONE ×2 (03:27→03:38)
--- NOTE | 2018-12-24 03:27 | ERPHSYRPT ---
- History of Present Illness Time Seen by Provider: 12/24/18 03:23 Historian: patient, family Exam Limitations: no limitations Patient Subjective Stated Complaint: Vomitting Triage Nursing Assessment: Patient brought back to ED via W/C and transferred to bed with assist of 1. Patient A+O X 3. Patient denies pain or discomfort. Patient complains of vomitting for the past 12 hours and is unable to keep anything down. Patient's abdomen round and soft with BS absent. Patient lungs diminished throughout. Patient states her emesis is brown with a foul odor. Physician History: pt is vomiting feculent vomitus today and still having stools, denies abd pain but has heartburn which she always has grandson is ill with vomiting and diarrhea also . Timing/Duration: today Activities at Onset: none Abdominal Pain Onset Location: other (heartburn only) Pain Radiation: no radiation Associated Symptoms: nausea, vomiting Previous symptoms: no prior history Allergies/Adverse Reactions: clarithromycin [From Biaxin] Allergy (Intermediate, Verified 12/24/18 02:57) constipation cephalexin monohydrate [From Keflex] Adverse Reaction (Mild, Verified 12/24/18 02:57) constipation Home Medications: Aspirin 81 mg PO DAILY 03/09/16 [History] Budesonide/Formoterol Fumarate [Symbicort 160-4.5 Mcg Inhaler] 6 gm IH BID 03/09 [History] Ipratropium/Albuterol Sulfate [Iprat-Albut 0.5-3(2.5) mg/3 ml] 3 ml NEB UD 03/09 [History] Hx Tetanus, Diphtheria Vaccination/Date Given: No Hx Influenza Vaccination/Date Given: Yes Hx Pneumococcal Vaccination/Date Given: Yes Immunizations Up to Date: Yes - Review of Systems Constitutional: No Fever, No Chills Eyes: No Symptoms Ears, Nose, & Throat: No Symptoms Respiratory: No Cough, No Dyspnea Cardiac: No Chest Pain, No Edema, No Syncope Abdominal/Gastrointestinal: Other (heartburn), No Abdominal Pain, No Nausea, No Vomiting, No Diarrhea Genitourinary Symptoms: No Dysuria Musculoskeletal: No Back Pain, No Neck Pain Skin: No Rash Neurological: No Dizziness, No Focal Weakness, No Sensory Changes Psychological: No Symptoms Endocrine: No Symptoms Hematologic/Lymphatic: No Symptoms Immunological/Allergic: No Symptoms All Other Systems: Reviewed and Negative - Past Medical History Pertinent Past Medical History: Yes Neurological History: No Pertinent History ENT History: Cataracts Cardiac History: Hypertension Respiratory History: Asthma, COPD Endocrine Medical History: No Pertinent History Musculoskeletal History: Arthritis GI Medical History: GERD History: No Pertinent History Psycho-Social History: No Pertinent History Female Reproductive Disorders: No Pertinent History - Past Surgical History Past Surgical History: Yes Neuro Surgical History: No Pertinent History Cardiac: No Pertinent History Respiratory: No Pertinent History Gastrointestinal: Cholecystectomy Genitourinary: No Pertinent History Musculoskeletal: No Pertinent History, Orthopedic Surgery Female Surgical History: Section, Tubal Ligation Other Surgical History: Thumb surgery. 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 - Social History Smoking Status: Never smoker Exposure to second hand smoke: No Drug Use: none Patient Lives Alone: No - Female History Hx Last Menstrual Period: menopausal Hx Now: No - Nursing Vital Signs Nursing Vital Signs: Initial Vital Signs Temperature 98.5 F 12/24/18 02:44 Pulse Rate 99 H 12/24/18 02:44 Respiratory Rate 20 12/24/18 02:44 Blood Pressure 137/90 12/24/18 02:44 O2 Sat by Pulse Oximetry 96 12/24/18 02:44 Pain Scale Pain Intensity 0 - Physical Exam General Appearance: no apparent distress, alert Eye Exam: PERRL/EOMI, eyes nml inspection Ears, Nose, Throat Exam: normal ENT inspection, pharynx normal, moist mucous membranes Neck Exam: normal inspection, non-tender, supple, full range of motion Respiratory Exam: normal breath sounds, lungs clear, No respiratory distress Cardiovascular Exam: regular rate/rhythm, normal heart sounds Gastrointestinal/Abdomen Exam: soft, No tenderness, No mass Pelvic Exam: deferred Rectal Exam: deferred Back Exam: normal inspection, normal range of motion, No CVA tenderness, No vertebral tenderness Extremity Exam: normal inspection, normal range of motion, pelvis stable Neurologic Exam: alert, oriented x 3, cooperative, normal mood/affect, nml cerebellar function, sensation nml, No motor deficits Skin Exam: normal color, warm, dry SpO2: 96 - Course Nursing assessment & vital signs reviewed: Yes EKG Interpreted by Me: Sinus Rhythm, NORMAL AXIS, NORMAL INTERVALS, Non- specific ST Changes - Radiology Exams Chest X-ray Interpretation: Reviewed by me, Other (Old COPD with scarring, nodules and atelectasis) Ordered Tests: Active Orders 24 hr Category Date Time Status Clean Catch Urine Specimen STAT Care 12/24/18 03:27 Active EKG-ER Only STAT Care 12/24/18 03:27 Active IV Insertion STAT Care 12/24/18 03:27 Active NPO (ED) STAT Care 12/24/18 03:27 Active ABDOMEN AND PELVIS W/0 CONTRAS [CT] Stat Exams 12/24/18 03:29 Taken CHEST 2 VIEWS (PA AND LAT) Stat Exams 12/24/18 03:27 Taken AMYLASE Stat Lab 12/24/18 03:30 Completed CBC W DIFF Stat Lab 12/24/18 03:30 Completed CMP Stat Lab 12/24/18 03:30 Completed LIPASE Stat Lab 12/24/18 03:30 Completed Lactic Acid Stat Lab 12/24/18 04:49 Results OCCULT BLOOD, EMESIS Stat Lab 12/24/18 04:00 Completed TROPONIN Q3H Lab 12/24/18 03:30 Completed TROPONIN Q3H Lab 12/24/18 06:25 Received TROPONIN Q3H Lab 12/24/18 09:30 Ordered TROPONIN Q3H Lab 12/24/18 12:30 Ordered TROPONIN Q3H Lab 12/24/18 15:30 Ordered UA W/RFX UR CULTURE Stat Lab 12/24/18 04:00 Completed Medication Summary Generic Name Dose Route Start Last Admin Trade Name Freq PRN Reason Stop Dose Admin Sodium Chloride 1,000 mls @ 100 mls/hr 12/24/18 03:30 12/24/18 04:45 Sodium Chloride 0.9% 1000 Ml IV 01/23/19 03:29 999 mls/hr .Q10H SERGIO Infusion Discontinued Medications Generic Name Dose Route Start Last Admin Trade Name Freq PRN Reason Stop Dose Admin Famotidine 20 mg 12/24/18 03:27 12/24/18 03:42 Pepcid 20 Mg Vial IV 12/24/18 03:28 20 mg STAT ONE Administration Famotidine Confirm 12/24/18 03:38 Pepcid 20 Mg Vial Administered 12/24/18 03:39 Dose 20 mg IV .STK-MED ONE Sodium Chloride 1,000 mls @ 999 mls/hr 12/24/18 04:59 12/24/18 05:08 Sodium Chloride 0.9% 1000 Ml IV 12/24/18 05:59 Not Given .Q1H1M STA Ondansetron HCl Confirm 12/24/18 03:12 Zofran 4 Mg/2 Ml Vial Administered 12/24/18 03:13 Dose 4 mg .ROUTE .STK-MED ONE Ondansetron HCl 4 mg 12/24/18 03:33 12/24/18 03:33 Zofran 4 Mg/2 Ml Vial IV 12/24/18 03:34 4 mg STAT ONE Administration Pantoprazole Sodium 40 mg 12/24/18 03:27 12/24/18 03:42 Protonix 40 Mg Iv IV 12/24/18 03:28 40 mg STAT ONE Administration Pantoprazole Sodium Confirm 12/24/18 03:38 Protonix 40 Mg Iv Administered 12/24/18 03:39 Dose 40 mg IV .STK-MED ONE Lab/Rad Data: Laboratory Result Diagrams 12/24/18 03:30 12/24/18 03:30 Laboratory Results 12/24/18 12/24/18 12/24/18 Range/Units 04:49 04:00 04:00 WBC (4.0-10.5) K/mm3 RBC (4.1-5.4) M/mm3 Hgb (12.0-16.0) gm/dl Hct (35-47) % MCV (78-100) fl MCH (26-32) pg MCHC (32-36) g/dl RDW (11.5-14.0) % Plt Count (150-450) K/mm3 MPV (6-9.5) fl Gran % (36.0-66.0) % Eos # (Auto) (0-0.5) Absolute Lymphs (auto) (1.0-4.6) Absolute Monos (auto) (0.0-1.3) Lymphocytes % (24.0-44.0) % Monocytes % (0.0-12.0) % Eosinophils % (0.00-5.0) % Basophils % (0.0-0.4) % Absolute Granulocytes (1.4-6.9) Basophils # (0-0.4) Sodium (137-145) mmol/L Potassium (3.5-5.1) mmol/L Chloride (98-107) mmol/L Carbon Dioxide (22-30) mmol/L Anion Gap (5-15) MEQ/L BUN (7-17) mg/dL Creatinine (0.52-1.04) mg/dL Estimated GFR ML/MIN Glucose (74-106) mg/dL Lactic Acid 2.6 H (0.4-2.0) Calcium (8.4-10.2) mg/dL Total Bilirubin (0.2-1.3) mg/dL AST (14-36) U/L ALT (0-35) U/L Alkaline Phosphatase (38-126) U/L Troponin I (0.000-0.034) ng/mL Serum Total Protein (6.3-8.2) g/dL Albumin (3.5-5.0) g/dL Amylase (30-110) U/L Lipase (23-300) U/L Urine Color YELLOW (YELLOW) Urine Appearance SLIGHTLY CLOUDY (CLEAR) Urine pH 8.0 (5-6) Ur Specific [place] 1.016 (1.005-1.025) Urine Protein 30 (Negative) Urine Ketones SMALL (NEGATIVE) Urine Blood NEGATIVE (0-5) Armando/ul Urine Nitrite NEGATIVE (NEGATIVE) Urine Bilirubin NEGATIVE (NEGATIVE) Urine Urobilinogen 2 (0-1) mg/dL Ur Leukocyte Esterase NEGATIVE (NEGATIVE) Urine WBC (Auto) 3-5 (0-5) /HPF Urine RBC (Auto) 3-5 (0-2) /HPF U Epithel Cells (Auto) RARE (FEW) /HPF Urine Bacteria (Auto) NONE (NEGATIVE) /HPF Urine Mucus (Auto) SLIGHT (NEGATIVE) /HPF Urine Culture Reflexed NO (NO) Urine Glucose NEGATIVE (NEGATIVE) mg/dL Emesis for Blood POSITIVE (Negative) 12/24/18 12/24/18 12/24/18 Range/Units 03:30 03:30 03:30 WBC 10.4 (4.0-10.5) K/mm3 RBC 4.27 (4.1-5.4) M/mm3 Hgb 14.1 (12.0-16.0) gm/dl Hct 41.7 (35-47) % MCV 97.7 (78-100) fl MCH 33.0 H (26-32) pg MCHC 33.8 (32-36) g/dl RDW 13.4 (11.5-14.0) % Plt Count 288 (150-450) K/mm3 MPV 11.5 H (6-9.5) fl Gran % 86.8 H (36.0-66.0) % Eos # (Auto) 0.01 (0-0.5) Absolute Lymphs (auto) 0.73 L (1.0-4.6) Absolute Monos (auto) 0.62 (0.0-1.3) Lymphocytes % 7.0 L (24.0-44.0) % Monocytes % 6.0 (0.0-12.0) % Eosinophils % 0.1 (0.00-5.0) % Basophils % 0.1 (0.0-0.4) % Absolute Granulocytes 9.04 H (1.4-6.9) Basophils # 0.01 (0-0.4) Sodium 143 (137-145) mmol/L Potassium 3.5 (3.5-5.1) mmol/L Chloride 100 (98-107) mmol/L Carbon Dioxide 31 H (22-30) mmol/L Anion Gap 15.8 H (5-15) MEQ/L BUN 21 H (7-17) mg/dL Creatinine 0.92 (0.52-1.04) mg/dL Estimated GFR > 60.0 ML/MIN Glucose 141 H (74-106) mg/dL Lactic Acid (0.4-2.0) Calcium 10.0 (8.4-10.2) mg/dL Total Bilirubin 0.70 (0.2-1.3) mg/dL AST 46 H (14-36) U/L ALT 35 (0-35) U/L Alkaline Phosphatase 78 (38-126) U/L Troponin I < 0.012 (0.000-0.034) ng/mL Serum Total Protein 8.3 H (6.3-8.2) g/dL Albumin 5.0 (3.5-5.0) g/dL Amylase 80 (30-110) U/L Lipase 69 (23-300) U/L Urine Color (YELLOW) Urine Appearance (CLEAR) Urine pH (5-6) Ur Specific [place] (1.005-1.025) Urine Protein (Negative) Urine Ketones (NEGATIVE) Urine Blood (0-5) Armando/ul Urine Nitrite (NEGATIVE) Urine Bilirubin (NEGATIVE) Urine Urobilinogen (0-1) mg/dL Ur Leukocyte Esterase (NEGATIVE) Urine WBC (Auto) (0-5) /HPF Urine RBC (Auto) (0-2) /HPF U Epithel Cells (Auto) (FEW) /HPF Urine Bacteria (Auto) (NEGATIVE) /HPF Urine Mucus (Auto) (NEGATIVE) /HPF Urine Culture Reflexed (NO) Urine Glucose (NEGATIVE) mg/dL Emesis for Blood (Negative) - Progress Progress: improved, re-examined Progress Note: 12/24/18 05:[address] reading telerad, which is reported a delay. 12/24/18 06:39 discussed with pt and Dr. Almendarez covering and everyone agrees pt best be observed in house adn repeat CBC and control vomiting. Discussed with : Tanesha Will see patient in: hospital (observation) Counseled pt/family regarding: lab results, diagnosis, need for follow-up, rad results - Departure Time of Disposition: 06:40 Departure Disposition: Observation Clinical Impression: GI bleed, Intractable vomiting Condition: Good Critical Care Time: No Referrals: RON SU [Primary Care Provider] -
[2018-12-24] MEDS ORDERED: Sodium Chloride 0.9% 1000 ML 1,000 ML IV SCH (03:30)
[2018-12-24] MEDS ORDERED: Zofran 4 MG/2 ML VIAL IV ONE (03:33)
[2018-12-24 03:38] LABS: BASOPHIL % 0.1 % (0.0-0.4); Basophil (Absolute #) 0.01 (0-0.4); Eosinophil % 0.1 % (0.00-5.0); Eosinophil (Absolute #) 0.01 (0-0.5); Granulocyte Absolute (ANC) 9.04 (1.4-6.9); Granulocytes % 86.8 % (36.0-66.0); Hematocrit 41.7 % (35-47); Hemoglobin 14.1 gm/dl (12.0-16.0); Lymphocyte (Absolute #) 0.73 (1.0-4.6); Mean Cell Volume 97.7 fl (78-100); Mean Corpuscular Hgb Concent. 33.8 g/dl (32-36); Mean Platelet Volume 11.5 fl (6-9.5); Monocyte (Absolute #) 0.62 (0.0-1.3); Platelet Count 288 K/mm3 (150-450); Red Blood Count 4.27 M/mm3 (4.1-5.4); Red Cell Distribution Width 13.4 % (11.5-14.0); White Blood Count 10.4 K/mm3 (4.0-10.5)
[2018-12-24] MEDS ORDERED: Sodium Chloride 0.9% 1000 ML 1,000 ML ONE (03:39)
[2018-12-24 03:42] LABS: ALKALINE PHOSPHATASE 78 U/L (38-126); AMYLASE 80 U/L (30-110); ANION GAP 15.8 MEQ/L (5-15); BLOOD UREA NITROGEN 21 mg/dL (7-17); CHLORIDE 100 mmol/L (98-107); Carbon Dioxide 31 mmol/L (22-30); Creatinine 1 0.92 mg/dL (0.52-1.04); Glucose 141 mg/dL (74-106); LIPASE 69 U/L (23-300); Potassium 3.5 mmol/L (3.5-5.1); SGOT/AST 46 U/L (14-36); SGPT/ALT 35 U/L (0-35); SODIUM 143 mmol/L (137-145); Total Protein 8.3 g/dL (6.3-8.2)
[2018-12-24 04:37] LABS: Appearance SLIGHTLY CLOUDY (CLEAR); Bilirubin NEGATIVE (NEGATIVE); Blood NEGATIVE Ery/ul (0-5); Epithelial Cells RARE /HPF (FEW); Glucose NEGATIVE (NEGATIVE); Ketones SMALL (NEGATIVE); Leukocyte Esterase NEGATIVE (NEGATIVE); Mucus SLIGHT /HPF (NEGATIVE); Nitrite NEGATIVE (NEGATIVE); Protein,Urine Dip 30 (Negative); Specific Gravity 1.016 (1.005-1.025); Urobilinogen 2 mg/dL (0-1)
[2018-12-24 04:51] LABS: Lactic Acid 2.6 (0.4-2.0)
[2018-12-24] MEDS ORDERED: Sodium Chloride 0.9% 1000 ML 1,000 ML IV STA (04:59)
[2018-12-24] MEDS ORDERED: DIPRIVAN 200 MG/20 ML IV ONE (08:04)
[2018-12-24] MEDS ORDERED: DUONEB 0.5-3 MG/3 ml Neb IH PRN (08:06)
[2018-12-24] MEDS ORDERED: Phenergan 25 MG INJ IM PRN (08:06)
[2018-12-24] MEDS ORDERED: Zofran 4 MG/2 ML VIAL IV PRN (08:06)
[2018-12-24] MEDS ORDERED: MORPHINE SULFATE 4 MG INJ IV PRN (08:06)
[2018-12-24] MEDS ORDERED: NovoLIN R SQ PRN (08:06)
[2018-12-24] MEDS: Pepcid 20 MG VIAL IV SCH ×2 (08:24→21:19)
[2018-12-24] MEDS: Lactated Ringers 1,000 ML IV SCH ×2 (08:24→15:53)
--- NOTE | 2018-12-24 08:30 | XRAY ---
Indication: Emesis and diarrhea. Multiple contiguous axial images obtained through the abdomen and pelvis without contrast as ordered. Comparison: May 16, 2018 Lung bases clear again with pulmonary emphysema. Heart is not enlarged. Stable small hiatal hernia. Noncontrasted stomach and bowel loops appear nonobstructed. Normal appendix. Again mild diffuse scattered colonic fecal debris less than before. No free fluid/air. Stable left renal cysts with rim of calcification, right mid renal cortical scarring, tiny uterine fundal calcified fibroid, and cholecystectomy clips. Remaining liver, pancreas, spleen, adrenal glands, kidneys, ureters, bladder, and uterus appear unremarkable for noncontrast exam. Stable moderate aortoiliac calcifications without AAA. Osseous structures intact again with lumbosacral junction degenerative changes. Impression: 1. Mild fecal stasis without obstruction. 2. Stable minimally complex left renal cysts, calcified uterine fibroid, pulmonary emphysema, and small hiatal hernia. 3. No new or acute intra-abdominal/pelvic abnormalities on this noncontrast exam. Comment: Preliminary interpretation was made by [facility]. No critical discrepancy. CTDI 8.60
--- NOTE | 2018-12-24 08:32 | XRAY ---
Indication: Emesis. Heartburn. Comparison: August 07, 2018. PA/lateral chest again demonstrates COPD, medial right middle lobe atelectasis, and left apical calcified granuloma. No focal infiltrate, consolidation, or large effusion. Heart and mediastinal structures within normal limits. Bony thorax intact. Impression: Stable nonacute chest with chronic features.
[2018-12-24] MEDS ORDERED: PROTONIX 40 MG IV IV SCH (10:00)
[2018-12-24] MEDS: PROTONIX 40 MG IV*** 80 MG in Sodium Chloride 0.9% 500 ML 500 ML IV SCH ×2 (10:53→21:29)
--- NOTE | 2018-12-24 12:12 | PCM.HP ---
History of Present Illness - Chief Complaint Chief Complaint: GI bleed/intractable vomiting History of Present Illness: is a 68 year old female pt of Dr. Collazo with HTN, chronic ANSHUL, and COPD who was admitted through ER with intractable vomiting of heme-positive substance. She had vomited > 12x after 5 p.m. yesterday and had 2 "good BMs" ( pt is normally constipated). There was a sick contact in the home. She chronically suffers from reflux symptoms. She takes 2-3 OTC zantac daily and 6 TUMs. She has never had an EGD. She was admitted on IV protonix and H2 zelalem. Has not had any vomiting since coming to [facility] floor. She is complaining of a very dry mouth and would like to try some liquids. - Review of Systems Constitutional: Fever (subjective) Ears, Nose, & Throat: Nose Congestion (chronic), Other (typically "drippy" nose , but mouth and nose are currently dry) Respiratory: Cough (chronic) Abdominal/Gastrointestinal: Nausea, Vomiting, No Abdominal Pain Neurological: Dizziness (lightheaded) Psychological: No Anxiety, No Depression, No Suicidal Ideations All Other Systems: Reviewed and Negative Medications & Allergies Home Medications: Home Medication List Aspirin 81 mg PO DAILY 03/09/16 [History Confirmed 12/24/18] Budesonide/Formoterol Fumarate [Symbicort 160-4.5 Mcg Inhaler] 6 gm IH BID 03/09 [History Confirmed 12/24/18] Ipratropium/Albuterol Sulfate [Iprat-Albut 0.5-3(2.5) mg/3 ml] 3 ml NEB UD 03/09 [History Confirmed 12/24/18] Albuterol Sulfate Mdi [Proair Hfa MDI] 2 puff IH BID PRN 12/24/18 [ History Confirmed 12/24/18] Lisinopril 5 mg PO DAILY 12/24/18 [History Confirmed 12/24/18] Allergies/Adverse Reactions: Allergies Allergy/AdvReac Type Severity Reaction Status Date / Time clarithromycin [From Biaxin] Allergy Intermediate Verified 12/24/18 02:57 cephalexin monohydrate AdvReac Mild Verified 12/24/18 02:57 [From Keflex] - Past Medical History Past Medical History: Yes Neurological History: No Pertinent History ENT History: Cataracts Cardiac History: Hypertension Respiratory History: Asthma, COPD Endocrine Medical History: No Pertinent History Musculoskelatal History: Arthritis GI Medical History: GERD History: No Pertinent History Pyscho-Social History: No Pertinent History Reproductive Disorders: No Pertinent History - Female History Hx Last Menstrual Period: menopausal Are you now?: No - Past Surgical History Past Surgical History: Yes Neuro Surgical History: No Pertinent History Cardiac History: No Pertinent History Respiratory Surgery: No Pertinent History GI Surgical History: Cholecystectomy Genitourinary Surgical Hx: No Pertinent History Musculskeletal Surgical Hx: Orthopedic Surgery Female Surgical History: Section, Tubal Ligation Other Surgical History: Thumb surgery. 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 - Social History Smoking Status: Never smoker Exposure to second hand smoke: No Alcohol: None Drug Use: none - Physical Exam Vital Signs: Vital Signs - 24 hr Temp Pulse Resp BP Pulse Ox 12/24/18 09:13 18 12/24/18 08:19 98 F 78 18 136/61 95 12/24/18 08:06 98 F 78 18 136/61 95 12/24/18 07:53 80 18 141/90 94 L 12/24/18 06:40 96 12/24/18 06:40 83 16 92 L 12/24/18 05:40 84 18 92 L 12/24/18 04:40 86 16 97 12/24/18 03:50 18 100 12/24/18 03:24 98 H 16 99 12/24/18 02:44 98.5 F 99 H 20 137/90 96 Oxygen-Last 24 hours O2 Percentage 2 Liters = 28% O2 Percentage 2 Liters = 28% General Appearance: no apparent distress, alert, thin Neurologic Exam: oriented x 3, cooperative Eye Exam: eyes nml inspection Ears, Nose, Throat Exam: moist mucous membranes Neck Exam: normal inspection, non-tender, No lymphadenopathy Respiratory Exam: normal breath sounds, lungs clear, No crackles/rales, No rhonchi, No wheezing Cardiovascular Exam: regular rate/rhythm, normal heart sounds, No murmur Gastrointestinal/Abdomen Exam: soft, normal bowel sounds, No tenderness, No distention, No mass, No guarding, No rebound Extremity Exam: normal inspection, No pedal edema, No swelling Results - Labs Lab/Micro Results: Lab Results-Last 24 Hours 12/24/18 12/24/18 12/24/18 Range/Units 03:30 03:30 03:30 WBC 10.4 (4.0-10.5) K/mm3 RBC 4.27 (4.1-5.4) M/mm3 Hgb 14.1 (12.0-16.0) gm/dl Hct 41.7 (35-47) % MCV 97.7 (78-100) fl MCH 33.0 H (26-32) pg MCHC 33.8 (32-36) g/dl RDW 13.4 (11.5-14.0) % Plt Count 288 (150-450) K/mm3 MPV 11.5 H (6-9.5) fl Gran % 86.8 H (36.0-66.0) % Eos # (Auto) 0.01 (0-0.5) Absolute Lymphs (auto) 0.73 L (1.0-4.6) Absolute Monos (auto) 0.62 (0.0-1.3) Lymphocytes % 7.0 L (24.0-44.0) % Monocytes % 6.0 (0.0-12.0) % Eosinophils % 0.1 (0.00-5.0) % Basophils % 0.1 (0.0-0.4) % Absolute Granulocytes 9.04 H (1.4-6.9) Basophils # 0.01 (0-0.4) Sodium 143 (137-145) mmol/L Potassium 3.5 (3.5-5.1) mmol/L Chloride 100 (98-107) mmol/L Carbon Dioxide 31 H (22-30) mmol/L Anion Gap 15.8 H (5-15) MEQ/L BUN 21 H (7-17) mg/dL Creatinine 0.92 (0.52-1.04) mg/dL Estimated GFR > 60.0 ML/MIN Glucose 141 H (74-106) mg/dL Lactic Acid (0.4-2.0) Calcium 10.0 (8.4-10.2) mg/dL Total Bilirubin 0.70 (0.2-1.3) mg/dL AST 46 H (14-36) U/L ALT 35 (0-35) U/L Alkaline Phosphatase 78 (38-126) U/L Troponin I < 0.012 (0.000-0.034) ng/mL Serum Total Protein 8.3 H (6.3-8.2) g/dL Albumin 5.0 (3.5-5.0) g/dL Amylase 80 (30-110) U/L Lipase 69 (23-300) U/L Urine Color (YELLOW) Urine Appearance (CLEAR) Urine pH (5-6) Ur Specific [place] (1.005-1.025) Urine Protein (Negative) Urine Ketones (NEGATIVE) Urine Blood (0-5) Armando/ul Urine Nitrite (NEGATIVE) Urine Bilirubin (NEGATIVE) Urine Urobilinogen (0-1) mg/dL Ur Leukocyte Esterase (NEGATIVE) Urine WBC (Auto) (0-5) /HPF Urine RBC (Auto) (0-2) /HPF U Epithel Cells (Auto) (FEW) /HPF Urine Bacteria (Auto) (NEGATIVE) /HPF Urine Mucus (Auto) (NEGATIVE) /HPF Urine Culture Reflexed (NO) Urine Glucose (NEGATIVE) mg/dL Emesis for Blood (Negative) 12/24/18 12/24/18 12/24/18 Range/Units 04:00 04:00 04:49 WBC (4.0-10.5) K/mm3 RBC (4.1-5.4) M/mm3 Hgb (12.0-16.0) gm/dl Hct (35-47) % MCV (78-100) fl MCH (26-32) pg MCHC (32-36) g/dl RDW (11.5-14.0) % Plt Count (150-450) K/mm3 MPV (6-9.5) fl Gran % (36.0-66.0) % Eos # (Auto) (0-0.5) Absolute Lymphs (auto) (1.0-4.6) Absolute Monos (auto) (0.0-1.3) Lymphocytes % (24.0-44.0) % Monocytes % (0.0-12.0) % Eosinophils % (0.00-5.0) % Basophils % (0.0-0.4) % Absolute Granulocytes (1.4-6.9) Basophils # (0-0.4) Sodium (137-145) mmol/L Potassium (3.5-5.1) mmol/L Chloride (98-107) mmol/L Carbon Dioxide (22-30) mmol/L Anion Gap (5-15) MEQ/L BUN (7-17) mg/dL Creatinine (0.52-1.04) mg/dL Estimated GFR ML/MIN Glucose (74-106) mg/dL Lactic Acid 2.6 H (0.4-2.0) Calcium (8.4-10.2) mg/dL Total Bilirubin (0.2-1.3) mg/dL AST (14-36) U/L ALT (0-35) U/L Alkaline Phosphatase (38-126) U/L Troponin I (0.000-0.034) ng/mL Serum Total Protein (6.3-8.2) g/dL Albumin (3.5-5.0) g/dL Amylase (30-110) U/L Lipase (23-300) U/L Urine Color YELLOW (YELLOW) Urine Appearance SLIGHTLY CLOUDY (CLEAR) Urine pH 8.0 (5-6) Ur Specific [place] 1.016 (1.005-1.025) Urine Protein 30 (Negative) Urine Ketones SMALL (NEGATIVE) Urine Blood NEGATIVE (0-5) Armando/ul Urine Nitrite NEGATIVE (NEGATIVE) Urine Bilirubin NEGATIVE (NEGATIVE) Urine Urobilinogen 2 (0-1) mg/dL Ur Leukocyte Esterase NEGATIVE (NEGATIVE) Urine WBC (Auto) 3-5 (0-5) /HPF Urine RBC (Auto) 3-5 (0-2) /HPF U Epithel Cells (Auto) RARE (FEW) /HPF Urine Bacteria (Auto) NONE (NEGATIVE) /HPF Urine Mucus (Auto) SLIGHT (NEGATIVE) /HPF Urine Culture Reflexed NO (NO) Urine Glucose NEGATIVE (NEGATIVE) mg/dL Emesis for Blood POSITIVE (Negative) 12/24/18 12/24/18 12/24/18 Range/Units 06:25 09:35 09:40 WBC (4.0-10.5) K/mm3 RBC (4.1-5.4) M/mm3 Hgb (12.0-16.0) gm/dl Hct (35-47) % MCV (78-100) fl MCH (26-32) pg MCHC (32-36) g/dl RDW (11.5-14.0) % Plt Count (150-450) K/mm3 MPV (6-9.5) fl Gran % (36.0-66.0) % Eos # (Auto) (0-0.5) Absolute Lymphs (auto) (1.0-4.6) Absolute Monos (auto) (0.0-1.3) Lymphocytes % (24.0-44.0) % Monocytes % (0.0-12.0) % Eosinophils % (0.00-5.0) % Basophils % (0.0-0.4) % Absolute Granulocytes (1.4-6.9) Basophils # (0-0.4) Sodium (137-145) mmol/L Potassium (3.5-5.1) mmol/L Chloride (98-107) mmol/L Carbon Dioxide (22-30) mmol/L Anion Gap (5-15) MEQ/L BUN (7-17) mg/dL Creatinine (0.52-1.04) mg/dL Estimated GFR ML/MIN Glucose (74-106) mg/dL Lactic Acid 0.8 (0.4-2.0) Calcium (8.4-10.2) mg/dL Total Bilirubin (0.2-1.3) mg/dL AST (14-36) U/L ALT (0-35) U/L Alkaline Phosphatase (38-126) U/L Troponin I < 0.012 < 0.012 (0.000-0.034) ng/mL Serum Total Protein (6.3-8.2) g/dL Albumin (3.5-5.0) g/dL Amylase (30-110) U/L Lipase (23-300) U/L Urine Color (YELLOW) Urine Appearance (CLEAR) Urine pH (5-6) Ur Specific [place] (1.005-1.025) Urine Protein (Negative) Urine Ketones (NEGATIVE) Urine Blood (0-5) Armando/ul Urine Nitrite (NEGATIVE) Urine Bilirubin (NEGATIVE) Urine Urobilinogen (0-1) mg/dL Ur Leukocyte Esterase (NEGATIVE) Urine WBC (Auto) (0-5) /HPF Urine RBC (Auto) (0-2) /HPF U Epithel Cells (Auto) (FEW) /HPF Urine Bacteria (Auto) (NEGATIVE) /HPF Urine Mucus (Auto) (NEGATIVE) /HPF Urine Culture Reflexed (NO) Urine Glucose (NEGATIVE) mg/dL Emesis for Blood (Negative) - Radiology Impressions Radiology Exams & Impressions: Radiology Procedures Category Date Time Status ABDOMEN AND PELVIS W/0 CONTRAS [CT] Stat Exams 12/24/18 03:29 Completed CHEST 2 VIEWS (PA AND LAT) Stat Exams 12/24/18 03:27 Completed - Other Procedures and Tests Respiratory Therapy 12/24/18 08:06 Oxygen Nasal Cannula 3 lpm 12/24/18 08:59 RT Screen per Nursing Assess ONCE Assessment/Plan (1) GI bleed Current Visit: Yes Status: Acute Qualifiers: GI bleed type/associated pathology: gastrointestinal hemorrhage with hematemesis Qualified Code(s): K92.0 - Hematemesis Assessment & Plan: Hemoglobin was 14.1 this morning, approx 03:30. Will recheck 12 h from then. On IV protonix drip. Advance to [facility] since her vomiting has resolved. Plan to do EGD in the morning. Code(s): K92.2 - GASTROINTESTINAL HEMORRHAGE, UNSPECIFIED (2) Intractable vomiting Current Visit: Yes Status: Resolved Qualifiers: Vomiting type: unspecified Nausea presence: unspecified Qualified Code(s) : R11.10 - Vomiting, unspecified Code(s): R11.10 - VOMITING, UNSPECIFIED (3) Chronic gastroesophageal reflux disease Current Visit: Yes Status: Chronic Code(s): K21.9 - GASTRO-ESOPHAGEAL REFLUX DISEASE WITHOUT ESOPHAGITIS (4) COPD (chronic obstructive pulmonary disease) Current Visit: Yes Status: Chronic Qualifiers: COPD type: unspecified COPD Qualified Code(s): J44.9 - Chronic obstructive pulmonary disease, unspecified
[2018-12-24] MEDS ORDERED: PROVENTIL COMMON CANISTER IH PRN (14:13)
[2018-12-24] MEDS ORDERED: DUONEB 0.5-3 MG/3 ml Neb IH SCH (14:15)
[2018-12-24] MEDS ORDERED: NON-FORMULARY ITEM (Albuterol Sulfate Mdi*** 2 PUFF) IH SCH (14:15)
[2018-12-24] MEDS: Zestril 5 MG PO SCH (14:17)
[2018-12-24 15:52] LABS: Hemoglobin 11.1 gm/dl (12.0-16.0); Mean Cell Volume 101.4 fl (78-100); Mean Corpuscular Hgb Concent. 31.7 g/dl (32-36); Mean Platelet Volume 10.6 fl (6-9.5); Platelet Count 206 K/mm3 (150-450); Red Blood Count 3.45 M/mm3 (4.1-5.4); Red Cell Distribution Width 13.5 % (11.5-14.0); White Blood Count 7.1 K/mm3 (4.0-10.5)
[2018-12-24 16:01] LABS: Mean Corpuscular Hemoglobin 32.1 pg (26-32)
[2018-12-24] MEDS: TYLENOL 325 MG PO PRN (16:26)
[2018-12-24] MEDS ORDERED: Advair Hfa 230/21 Mcg COMMON CANISTER IH SCH (19:00)
[2018-12-24] MEDS: DUONEB 0.5-3 MG/3 ml Neb IH SCH (19:38)
[2018-12-24] MEDS ORDERED: NON-FORMULARY ITEM (Budesonide/Formoterol Fumarate [Symbicort 160-4.5 Mcg Inhaler] 6 GM) IH SCH (22:00)
[2018-12-24] MEDS ORDERED: PATIENT OWN MEDICATION IH SCH (22:00)
[2018-12-25] MEDS: Lactated Ringers 1,000 ML IV SCH (00:43)
[2018-12-25] MEDS: TYLENOL 325 MG PO PRN (04:20)
[2018-12-25] MEDS ORDERED: PATIENT OWN MEDICATION IH PRN (07:00)
[2018-12-25] MEDS ORDERED: Lactated Ringers 1,000 ML IV SCH (07:30)
[2018-12-25] MEDS ORDERED: Lactated Ringers 1,000 ML IV ONE (08:28)
--- NOTE | 2018-12-25 08:50 | PCM.NOTE ---
Date and Time: 12/25/18 0846 Subjective Assessment: Ms. Greene is a patient of mine but her last outpatient visit was over a year ago. She reports she is following up with her contracting officer, Dr. Oconnor , and recently saw him. She is concerned about the cost of PPI if the insurance will not cover it. She denies any pain in her abdomen now but reports she had some nausea yesterday. She had a scope today with Dr. Phillips with post op diagnosis of esophagitis and duodenitis. She wears oxygen at home and plans to return home on discharge. - Review of Systems Constitutional: No Symptoms Eyes: No Symptoms Ears, Nose, & Throat: Other (nasal congest) Respiratory: No Symptoms Cardiac: No Symptoms Abdominal/Gastrointestinal: No Symptoms Genitourinary Symptoms: No Symptoms Musculoskeletal: No Symptoms Skin: No Symptoms Objective Exam General Appearance: no apparent distress, alert, other (daughter at bedside) Neurologic Exam: alert, cooperative, normal mood/affect Skin Exam: normal color, warm, dry, No rash Respiratory Exam: normal breath sounds, lungs clear, No crackles/rales, No rhonchi, No wheezing Cardiovascular Exam: regular rate/rhythm, normal heart sounds, No murmur, No friction rub, No gallop Gastrointestinal/Abdomen Exam: soft, normal bowel sounds, No tenderness, No distention, No mass Extremity Exam: other (no c/c/e) OBJECTIVE DATA Vital Signs: Vital Signs - 24 hr Temp Pulse Resp BP Pulse Ox 12/25/18 08:15 98.1 F 68 20 125/58 95 12/25/18 07:00 98.3 F 71 20 127/60 94 L 12/25/18 06:00 20 12/25/18 05:00 98.3 F 71 20 127/60 94 L 12/25/18 04:00 99.6 F 79 20 120/58 95 12/25/18 02:00 18 12/25/18 00:02 98.8 F 63 22 127/60 96 12/24/18 22:00 16 12/24/18 20:00 98.4 F 67 16 118/57 97 12/24/18 19:46 66 20 94 L 12/24/18 17:44 20 12/24/18 16:22 98 F 74 20 139/65 97 02/17/19 14:00 20 12/24/18 12:20 98.1 F 76 20 151/71 95 12/24/18 12:15 74 18 94 L 12/24/18 09:13 18 Oxygen-Last 24 hours O2 Percentage 3 Liters = 32% O2 Percentage 2 Liters = 28% O2 Percentage 2 Liters = 28% O2 Percentage 2 Liters = 28% O2 Percentage 2 Liters = 28% Oxygen Flowrate (L/min)-RT 2 Pain Assessment - Last Documented Pain Intensity 0 Pain Scale Used 0-10 Pain Scale Intake and Output: Intake & Output 12/23/18 12/24/18 12/25/18 12/26/18 06:59 06:59 06:59 06:59 Intake Total 4102 Output Total 1400 Balance 2702 Weight 51.256 kg 50.6 kg Lab Results: Lab Results-Last 24 Hours 12/24/18 12/24/18 12/24/18 Range/Units 09:35 09:40 12:38 WBC (4.0-10.5) K/mm3 RBC (4.1-5.4) M/mm3 Hgb (12.0-16.0) gm/dl Hct (35-47) % MCV (78-100) fl MCH (26-32) pg MCHC (32-36) g/dl RDW (11.5-14.0) % Plt Count (150-450) K/mm3 MPV (6-9.5) fl Lactic Acid 0.8 (0.4-2.0) Troponin I < 0.012 < 0.012 (0.000-0.034) ng/mL 12/24/18 12/24/18 Range/Units 15:45 15:45 WBC 7.1 (4.0-10.5) K/mm3 RBC 3.45 L (4.1-5.4) M/mm3 Hgb 11.1 L D (12.0-16.0) gm/dl Hct 35.0 (35-47) % MCV 101.4 H (78-100) fl MCH 32.1 H (26-32) pg MCHC 31.7 L (32-36) g/dl RDW 13.5 (11.5-14.0) % Plt Count 206 (150-450) K/mm3 MPV 10.6 H (6-9.5) fl Lactic Acid (0.4-2.0) Troponin I < 0.012 (0.000-0.034) ng/mL Radiology Exams: Radiology Procedures Category Date Time Status ABDOMEN AND PELVIS W/0 CONTRAS [CT] Stat Exams 12/24/18 03:29 Completed CHEST 2 VIEWS (PA AND LAT) Stat Exams 12/24/18 03:27 Completed Multi-Disciplinary Progress Notes: Multi-Disciplinary Progress Notes 12/25/18 04:11 Respiratory Note by HardeepMayito WAS INFORMED BY NURSING THAT PT PULLED OUT AN MDI AFTER GOING TO THE BATHROOM WHEN SHE WAS FEELING SOB. I WENT DOWN TO ASSESS AND SPEAK TO PT I KNEW SHE HAD HER OWN SYMBICORT BUT IT SOUNDED LIKE SHE HAD A RESCUE INHALER. PT CONFIRMED SHE HAD A PROAIR MDI AND SHE HAD JUST USED IT. I AGAIN INFORMED HER THAT ALONG WITH THE SYMBICORT MDI, THAT WE WOULD NEED TO HAVE THAT CHECKED WITH THE PHARMACY AND HAVE AN ACCOUNT OF HOW OFTEN SHE WAS USING IT. HER SPO2 WAS 94 % ON 2LPM. HER BS WERE DIMINISHED. I ASKED IF SHE FELT SHE WOULD BENEFIT FROM A NEB TX AND SHE SAID IT WAS MOSTLY THAT HER NOSE WAS STOPPED UP AND THAT SHE DIDN'T NEED A TX AT THIS TIME. Addendum entered by Mayito Meier 12/25/18 04:19: DISCUSSED WITH NURSING AND I WILL INFORM DAY SHIFT OF THESE EVENTS. Initialized on 12/25/18 04:11 - END OF NOTE 12/24/18 19:52 Respiratory Note by Mayito Meier PT INFORMED ME THAT SHE TOOK NEB TX TID AND THAT SHE HAD HER OWN SYMBICORT AND SHE HAD JUST TAKEN IT. I WILL CANCEL ADVAIR ORDER, SCHEDULE TID NEBS WELL [facility] MED ORDER FOR SYMBICORT. I WILL REQUEST THAT DAY SHIFT OBTAIN HER SYMBICORT AND HAVE PHARMACY CHECK IT OUT. Initialized on 12/24/18 19:52 - END OF NOTE Assessment/Plan (1) Esophagitis Current Visit: Yes Status: Acute Assessment & Plan: Change pantoprazole from drip to IV daily. If she does well with her regular diet, will discharge today on PPI with follow up. She did not have any biopsies taken during her scope today with Dr. Phillips. Code(s): K20.9 - ESOPHAGITIS, UNSPECIFIED (2) Duodenitis Current Visit: Yes Status: Acute Assessment & Plan: Continue with PPI. Code(s): K29.80 - DUODENITIS WITHOUT BLEEDING (3) COPD (chronic obstructive pulmonary disease) Current Visit: Yes Status: Chronic Qualifiers: COPD type: unspecified COPD Qualified Code(s): J44.9 - Chronic obstructive pulmonary disease, unspecified Assessment & Plan: Continue with oxygen and breathing treatments. Continue follow up with contracting officer. (4) Chronic gastroesophageal reflux disease Current Visit: Yes Status: Chronic Code(s): K21.9 - GASTRO-ESOPHAGEAL REFLUX DISEASE WITHOUT ESOPHAGITIS (5) Nausea Current Visit: Yes Status: Acute Assessment & Plan: Try to advance diet today. Code(s): R11.0 - NAUSEA
[2018-12-25] MEDS: Zestril 5 MG PO SCH (10:00)
[2018-12-25] MEDS ORDERED: PROTONIX 40 MG IV IV SCH (10:00)
--- NOTE | 2018-12-25 10:43 | OP ---
SURGERY DATE/TIME: 12/25/2018 0728 PREOPERATIVE DIAGNOSIS: Intractable vomiting and heme-positive emesis. POSTOPERATIVE DIAGNOSES: 1) Duodenitis. 2) Hiatal hernia. 3) Grade I esophagitis near the gastroesophageal junction. PROCEDURE: Esophagogastroduodenoscopy. SURGEON: Dr. Phillips. ANESTHESIA: Medications were given by the anesthesia department. BRIEF HISTORY: The patient is a 68 year old woman who presented to the hospital with intractable vomiting. She had heme-positive emesis and was felt the need to have endoscopic evaluation. The patient does reports that her grandson had vomiting just prior to her time. She denied any diarrhea. The patient was felt the need to have endoscopic evaluation. She was appraised of the risks of the procedure including the risk of perforation, phlebitis, untoward reaction to medication, bleeding and missed lesions. The patient verbalized her understanding and desired to have the procedure performed. DESCRIPTION OF PROCEDURE: The patient was given the medications by the anesthesia department. She had continuous pulse oximetry, ECG monitoring, intermittent blood pressure monitoring and tidal CO2 monitoring during the examination. She was placed in the left lateral decubitus position. A bite block was placed and the flexible Olympus gastroscope was used to intubate the oropharynx. A view of the larynx was obtained and was normal. The scope was easily passed in the esophagus which appeared to be normal to the gastroesophageal junction where there appeared to be grade I esophagitis. There was also noted hiatal hernia. The scope was passed into the stomach and the greater curvature of the stomach to the antrum. The pylorus encountered and intubated. Duodenum inspected and there appeared to be erythema at the duodenal bulb but no erosions or ulcerations were noted. The scope is withdrawn towards the stomach. A retroflex view was obtained of the lesser curvature, fundus and cardia regions of the stomach and there appeared again hiatal hernia but no other mucosal lesions. The scope was withdrawn from the patient who tolerated the procedure satisfactorily and was taken to the hospital jha again in good condition.
[2018-12-25 12:41] VITALS: BP 139/76
--- NOTE | 2018-12-25 15:05 | PCM.DCORD ---
- Discharge Discharge Date: 12/25/18 Disposition: Home, Self-Care Condition: Good Prescriptions: New Omeprazole 40 mg PO DAILY #30 capsule. Continue Budesonide/Formoterol Fumarate [Symbicort 160-4.5 Mcg Inhaler] 6 gm IH BID Ipratropium/Albuterol Sulfate [Iprat-Albut 0.5-3(2.5) mg/3 ml] 3 ml NEB UD Aspirin 81 mg PO DAILY Lisinopril 5 mg PO DAILY Albuterol Sulfate Mdi [Proair Hfa MDI] 2 puff IH BID PRN Follow up with: RON SU [Primary Care Provider] - 01/01/19 9:45 am
[2018-12-25] MEDS: DUONEB 0.5-3 MG/3 ml Neb IH SCH (15:24)
[2018-12-25 15:28] VITALS: PULSE 80; O2SAT 95
== END 2018-12-25 16:18 | disposition home or self-care (01) ==
LOC: ED 02:33 → MED SURG 08:03
PROVIDERS: ADMIT Family Medicine; ATTEND Internal Medicine
DX: K92.2 Gastrointestinal hemorrhage, unspecified (principal); R11.10 Vomiting, unspecified; K21.9 Gastro-esophageal reflux disease without esophagitis; J44.9 Chronic obstructive pulmonary disease, unspecified; I10 Essential (primary) hypertension; J45.909 Unspecified asthma, uncomplicated; M19.90 Unspecified osteoarthritis, unspecified site; K29.80 Duodenitis without bleeding; K44.9 Diaphragmatic hernia without obstruction or gangrene
CPT/HCPCS: 36000; 36415; 43235; 71046; 74176; 80053; 81001; 82150; 82271; 83605; 83690; 84484; 85025; 85027; 93005; 93268; 94640; 94760; 96360; 96374; 96375; 99285; G0378; J2405; J2704; A9270-GY

== ENCOUNTER 2019-07-27 12:09 | Emergency (ER) | payer MEDICARE, SELFPAY ==
[2019-07-27 12:43] VITALS: BP 144/84; PULSE 83; O2SAT 99
--- NOTE | 2019-07-27 12:43 | ERPHSYRPT ---
- History of Present Illness Source: patient, family Exam Limitations: no limitations Physician History: intermittent right hip pain for many years. gets a spasm, Pain gets worse with movt, gets better with rest Timing/Duration: day(s) (6) Occured at: home Context: other (Thinks it might have flared up due to long drive) Quality: sharpness Hip Pain Location: hip (R) Severity of Pain-Max: moderate Severity of Pain-Current: mild Modifying Factors: Improves With: movement Associated Symptoms: muscle aches, trouble walking, No fatigue, No fever, No groin pain, No insomnia, No lumps, No pain radiating to knees Allergies/Adverse Reactions: clarithromycin [From Biaxin] Allergy (Intermediate, Verified 07/27/19 14:06) constipation cephalexin monohydrate [From Keflex] Adverse Reaction (Mild, Verified 07/27/19 14:06) constipation Home Medications: Aspirin 81 mg PO DAILY 03/09/16 [History] Budesonide/Formoterol Fumarate [Symbicort 160-4.5 Mcg Inhaler] 6 gm IH BID 03/09 [History] Ipratropium/Albuterol Sulfate [Iprat-Albut 0.5-3(2.5) mg/3 ml] 3 ml NEB UD 03/09 [History] Albuterol Sulfate Mdi [Proair Hfa MDI] 2 puff IH BID PRN 12/24/18 [History ] Lisinopril 5 mg PO DAILY 12/24/18 [History] Albuterol Sulfate 0.63 mg IH Q4HPRN PRN 05/21/19 [History] Multivitamin [Multivitamins] 1 each PO DAILY 05/21/19 [History] Hx Tetanus, Diphtheria Vaccination/Date Given: No Hx Influenza Vaccination/Date Given: Yes Hx Pneumococcal Vaccination/Date Given: Yes - Review of Systems Constitutional: No Fever, No Chills Eyes: No Symptoms Ears, Nose, & Throat: No Symptoms Respiratory: No Cough, No Dyspnea Cardiac: No Chest Pain, No Edema, No Syncope Abdominal/Gastrointestinal: No Abdominal Pain, No Nausea, No Vomiting, No Diarrhea Genitourinary Symptoms: No Dysuria Musculoskeletal: Joint Pain, Other (rt hip pain), No Back Pain, No Neck Pain Skin: No Rash Neurological: No Dizziness, No Focal Weakness, No Sensory Changes Psychological: No Symptoms Endocrine: No Symptoms All Other Systems: Reviewed and Negative - Past Medical History Pertinent Past Medical History: Yes Neurological History: No Pertinent History ENT History: Cataracts Cardiac History: Hypertension Respiratory History: Asthma, COPD Endocrine Medical History: No Pertinent History Musculoskeletal History: Arthritis GI Medical History: GERD History: No Pertinent History Psycho-Social History: No Pertinent History Female Reproductive Disorders: No Pertinent History - Past Surgical History Past Surgical History: Yes Neuro Surgical History: No Pertinent History Cardiac: No Pertinent History Respiratory: No Pertinent History Gastrointestinal: Cholecystectomy Genitourinary: No Pertinent History Musculoskeletal: Orthopedic Surgery Female Surgical History: Section, Tubal Ligation Other Surgical History: Thumb surgery. 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 - Social History Smoking Status: Never smoker Exposure to second hand smoke: No Drug Use: none Patient Lives Alone: No - Nursing Vital Signs Nursing Vital Signs: Initial Vital Signs Temperature 98.2 F 07/27/19 12:21 Pulse Rate 83 07/27/19 12:21 Respiratory Rate 24 07/27/19 12:21 Blood Pressure 144/84 07/27/19 12:21 O2 Sat by Pulse Oximetry 99 07/27/19 12:21 Pain Scale Pain Intensity 0 - Physical Exam General Appearance: no apparent distress, alert Eye Exam: PERRL/EOMI Ears, Nose, Throat Exam: normal ENT inspection, moist mucous membranes Neck Exam: normal inspection, non-tender, supple Respiratory Exam: normal breath sounds, lungs clear, No chest tenderness, No respiratory distress Cardiovascular Exam: regular rate/rhythm, No edema Gastrointestinal Exam: soft, No tenderness, No distention, No guarding Back Exam: normal inspection, normal range of motion, No vertebral tenderness Extremity Exam: limited range of motion, other (right hip- painful, mild tenderness, normal ROM, Normal distal NV function) Neurologic Exam: alert, oriented x 3, cooperative, filter washer II-XII nml as tested, sensation nml, No motor deficits Skin Exam: normal color, warm, dry, No rash - Course Nursing assessment & vital signs reviewed: Yes - Radiology Exams Right Hip X-ray Interpretation: Reviewed by me, No Fracture Ordered Tests: Active Orders 24 hr Category Date Time Status HIP UNI (2V) INCL PEL IF DONE Stat Exams 07/27/19 14:35 Completed - Progress Progress: improved Progress Note: 07/27/19 15:24 pt does not want anything for pain. Agreed to see PCP for further work up Discussed with .: Flip Will see patient in: office Counseled pt/family regarding: need for follow-up, rad results - Departure Departure Disposition: Home Clinical Impression: Strain of right hip Qualifiers: Encounter type: initial encounter Qualified Code(s): S76.011A - Strain of muscle, fascia and tendon of right hip, initial encounter Condition: Stable Critical Care Time: No Referrals: RON SU [Primary Care Provider] - Instructions: Contusion (DC) Additional Instructions: See PCP SUNITA for further work up
--- NOTE | 2019-07-27 14:57 | XRAY ---
Indication: Right hip pain with weightbearing one week. No known injury. Comparison: March 14, 2019. AP pelvis and 2 views of the right hip again demonstrates mild osteopenia and small benign-appearing linear calcification in the right gluteal soft tissues. Incidental moderate fecal debris in the ascending colon. No other bony, articular, or soft tissue abnormalities.
== END 2019-07-27 16:06 | disposition home or self-care (01) ==
LOC: ED 12:09
DX: S76.011A Strain of muscle, fascia and tendon of right hip, initial encounter (principal)
CPT/HCPCS: 73502; 99283

== ENCOUNTER 2020-06-15 08:01 | Emergency (ER) | payer MEDICARE ==
--- NOTE | 2020-06-15 08:09 | ERPHSYRPT ---
- History of Present Illness Time Seen by Provider: 06/15/20 08:09 Historian: patient, family Exam Limitations: no limitations Physician History: This is a 70-year-old female who is an oxygen dependent COPD patient with a history of intractable vomiting, gastroesophageal reflux disease, esophagitis, duodenitis and hypertension. She does take omeprazole daily. 2 days ago she began having hematuria. She did not have left flank pain or abdominal pain until this morning. Because of her hematuria and the new onset of abdominal and left flank pain, the patient is here for evaluation. Patient denies chest pain and denies new shortness of breath. Patient chronically has shortness of breath because of her COPD. She has no fever and no flulike symptoms. Patient has chronic nausea. Timing/Duration: day(s) (2) Activities at Onset: none Quality: sharpness Abdominal Pain Onset Location: LUQ, flank (Left) Pain Radiation: no radiation Severity of Pain-Max: mild Severity of Pain-Current: mild Associated Symptoms: nausea (Chronic), shortness of breath (Chronic) Previous symptoms: same symptoms as today Allergies/Adverse Reactions: clarithromycin [From Biaxin] Allergy (Intermediate, Verified 06/15/20 08:18) constipation cephalexin monohydrate [From Keflex] Adverse Reaction (Mild, Verified 06/15/20 08:18) constipation Home Medications: Aspirin 81 mg PO DAILY 03/09/16 [History] Budesonide/Formoterol Fumarate [Symbicort 160-4.5 Mcg Inhaler] 6 gm IH BID 03/09/16 [History] Ipratropium/Albuterol Sulfate [Iprat-Albut 0.5-3(2.5) mg/3 ml] 3 ml NEB UD 03/09/16 [History] Albuterol Sulfate Mdi [Proair Hfa MDI] 2 puff IH BID PRN 12/24/18 [History] lisinopriL [Lisinopril] 5 mg PO DAILY 12/24/18 [History] Albuterol Sulfate 0.63 mg IH Q4HPRN PRN 05/21/19 [History] Multivitamin [Multivitamins] 1 each PO DAILY 05/21/19 [History] Hx Tetanus, Diphtheria Vaccination/Date Given: No Hx Influenza Vaccination/Date Given: Yes Hx Pneumococcal Vaccination/Date Given: Yes Travel Risk - International Travel Have you traveled outside of the country in past 3 weeks: No - Coronavirus Screening Are you exhibiting any of the following symptoms?: No Close contact with a COVID-19 positive Pt in past 14-21 Days: No - Review of Systems Constitutional: No Symptoms Eyes: No Symptoms Ears, Nose, & Throat: No Symptoms Respiratory: No Symptoms Cardiac: No Symptoms Abdominal/Gastrointestinal: Abdominal Pain, Nausea (Left side), No Vomiting, No Diarrhea Genitourinary Symptoms: Hematuria Musculoskeletal: No Symptoms (As always we do I say will be) Skin: No Symptoms Neurological: No Symptoms Psychological: No Symptoms Endocrine: No Symptoms Hematologic/Lymphatic: No Symptoms Immunological/Allergic: No Symptoms All Other Systems: Reviewed and Negative - Past Medical History Pertinent Past Medical History: Yes Neurological History: No Pertinent History ENT History: Cataracts Cardiac History: Hypertension Respiratory History: Asthma, COPD Endocrine Medical History: No Pertinent History Musculoskeletal History: Arthritis GI Medical History: GERD History: No Pertinent History Psycho-Social History: No Pertinent History Female Reproductive Disorders: No Pertinent History - Past Surgical History Past Surgical History: Yes Neuro Surgical History: No Pertinent History Cardiac: No Pertinent History Respiratory: No Pertinent History Gastrointestinal: Cholecystectomy Genitourinary: No Pertinent History Musculoskeletal: Orthopedic Surgery Female Surgical History: Section, Tubal Ligation Other Surgical History: Thumb surgery. 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 - Social History Smoking Status: Never smoker Exposure to second hand smoke: No Drug Use: none Patient Lives Alone: No - Nursing Vital Signs Nursing Vital Signs: Initial Vital Signs Temperature 98.0 F 06/15/20 08:08 Pulse Rate 80 06/15/20 08:08 Respiratory Rate 26 H 06/15/20 08:08 Blood Pressure 158/83 06/15/20 08:08 O2 Sat by Pulse Oximetry 98 06/15/20 08:08 Pain Scale Pain Intensity 4 - Physical Exam General Appearance: mild distress, alert, anxiety Eye Exam: PERRL/EOMI, eyes nml inspection Ears, Nose, Throat Exam: normal ENT inspection, moist mucous membranes Neck Exam: normal inspection, non-tender, supple, full range of motion Respiratory Exam: normal breath sounds, lungs clear, airway intact, No chest tenderness, No respiratory distress Cardiovascular Exam: regular rate/rhythm, normal heart sounds, normal peripheral pulses Gastrointestinal/Abdomen Exam: soft, normal bowel sounds, tenderness, No guarding (Mild left upper quadrant) Pelvic Exam: not done Rectal Exam: not done Back Exam: normal inspection, normal range of motion, CVA tenderness (Left), vertebral tenderness Extremity Exam: normal inspection, normal range of motion, pelvis stable Neurologic Exam: alert, oriented x 3, cooperative, fagot maker II-XII nml as tested, normal mood/affect, nml cerebellar function, nml station & gait, sensation nml Skin Exam: normal color, warm, dry Lymphatic Exam: No adenopathy SpO2 Interpretation: normal O2 Delivery: Room Air - Course Nursing assessment & vital signs reviewed: Yes EKG Interpreted by Me: RATE (73), Sinus Rhythm, NORMAL AXIS, NORMAL INTERVALS, NORMAL QRS, Other (No acute ischemic changes on current EKG. Compared to EKG on May there is resolution of the non-specific ST segment changes) Ordered Tests: Active Orders 24 hr Category Date Time Status EKG-ER Only STAT Care 06/15/20 08:12 Active IV Insertion STAT Care 06/15/20 08:12 Active ABDOMEN AND PELVIS W/0 CONTRAS [CT] Stat Exams 06/15/20 09:08 Taken CHEST 1 VIEW (PORTABLE) Stat Exams 06/15/20 08:13 Taken AMYLASE Stat Lab 06/15/20 08:25 Completed CBC W DIFF Stat Lab 06/15/20 08:25 Completed CMP Stat Lab 06/15/20 08:25 Completed CULTURE,URINE Stat Lab 06/15/20 08:45 Received LIPASE Stat Lab 06/15/20 08:25 Completed Lactic Acid Stat Lab 06/15/20 08:12 Completed TROPONIN Q3H Lab 06/15/20 08:25 Completed TROPONIN Q3H Lab 06/15/20 11:15 Ordered TROPONIN Q3H Lab 06/15/20 14:15 Ordered TROPONIN Q3H Lab 06/15/20 17:15 Ordered TROPONIN Q3H Lab 06/15/20 20:15 Ordered UA W/RFX UR CULTURE Stat Lab 06/15/20 08:45 Completed Medication Summary Generic Name Dose Route Start Last Admin Trade Name Freq PRN Reason Stop Dose Admin Levofloxacin/Dextrose 500 mg in 100 mls @ 100 mls/hr 06/15/20 09:07 Levofloxacin 500mg/100ml D5w IV 06/15/20 10:06 STAT STA Discontinued Medications Generic Name Dose Route Start Last Admin Trade Name Freq PRN Reason Stop Dose Admin Morphine Sulfate 2 mg 08/09/20 08:12 Morphine Sulfate 2 Mg Inj IV 06/15/20 08:13 STAT ONE Morphine Sulfate Confirm 06/15/20 08:39 Morphine Sulfate 2 Mg Inj Administered 06/15/20 08:40 Dose 2 mg .ROUTE .STK-MED ONE Ondansetron HCl 4 mg 06/15/20 08:12 Zofran 4 Mg/2 Ml Vial IV 06/15/20 08:13 STAT ONE Ondansetron HCl Confirm 06/15/20 08:39 Zofran 4 Mg/2 Ml Vial Administered 06/15/20 08:40 Dose 4 mg .ROUTE .STK-MED ONE Lab/Rad Data: Laboratory Result Diagrams 06/15/20 08:25 06/15/20 08:25 Laboratory Results 06/15/20 06/15/20 06/15/20 Range/Units 08:45 08:25 08:25 WBC (4.0-10.5) K/mm3 RBC (4.1-5.4) M/mm3 Hgb (12.0-16.0) gm/dl Hct (35-47) % MCV (78-100) fl MCH (26-32) pg MCHC (32-36) g/dl RDW (11.5-14.0) % Plt Count (150-450) K/mm3 MPV (7.5-11.0) fl Gran % (36.0-66.0) % Eos # (Auto) (0-0.5) Absolute Lymphs (auto) (1.0-4.6) Absolute Monos (auto) (0.0-1.3) Lymphocytes % (24.0-44.0) % Monocytes % (0.0-12.0) % Eosinophils % (0.00-5.0) % Basophils % (0.0-0.4) % Absolute Granulocytes (1.4-6.9) Basophils # (0-0.4) Sodium 139 (137-145) mmol/L Potassium 5.0 (3.5-5.1) mmol/L Chloride 102 (98-107) mmol/L Carbon Dioxide 32 H (22-30) mmol/L Anion Gap 10.2 (5-15) MEQ/L BUN 21 H (7-17) mg/dL Creatinine 0.92 (0.52-1.04) mg/dL Estimated GFR > 60.0 ML/MIN Glucose 92 (74-106) mg/dL Lactic Acid (0.4-2.0) Calcium 9.8 (8.4-10.2) mg/dL Total Bilirubin 0.60 (0.2-1.3) mg/dL AST 29 (14-36) U/L ALT 23 (0-35) U/L Alkaline Phosphatase 71 (38-126) U/L Troponin I < 0.012 (0.000-0.034) ng/mL Serum Total Protein 7.0 (6.3-8.2) g/dL Albumin 4.2 (3.5-5.0) g/dL Amylase 91 (30-110) U/L Lipase 92 (23-300) U/L Urine Color YELLOW (YELLOW) Urine Appearance SLIGHTLY CLOUDY (CLEAR) Urine pH 7.0 (5-6) Ur Specific [place] 1.009 (1.005-1.025) Urine Protein 100 (Negative) Urine Ketones NEGATIVE (NEGATIVE) Urine Blood LARGE (0-5) Armando/ul Urine Nitrite NEGATIVE (NEGATIVE) Urine Bilirubin NEGATIVE (NEGATIVE) Urine Urobilinogen NEGATIVE (0-1) mg/dL Ur Leukocyte Esterase LARGE (NEGATIVE) Urine WBC (Auto) >100 (0-5) /HPF Urine RBC (Auto) 51-100 (0-2) /HPF U Hyaline Cast (Auto) 0-2 (0-2) /LPF U Epithel Cells (Auto) RARE (FEW) /HPF Urine Bacteria (Auto) MODERATE (NEGATIVE) /HPF Urine Culture Reflexed YES (NO) Urine Glucose NEGATIVE (NEGATIVE) mg/dL 06/15/20 06/15/20 Range/Units 08:25 08:12 WBC 16.2 H (4.0-10.5) K/mm3 RBC 4.25 (4.1-5.4) M/mm3 Hgb 13.8 (12.0-16.0) gm/dl Hct 43.3 (35-47) % MCV 101.9 H (78-100) fl MCH 32.5 H (26-32) pg MCHC 31.9 L (32-36) g/dl RDW 14.1 H (11.5-14.0) % Plt Count 265 (150-450) K/mm3 MPV 10.5 (7.5-11.0) fl Gran % 76.2 H (36.0-66.0) % Eos # (Auto) 0.16 (0-0.5) Absolute Lymphs (auto) 2.56 (1.0-4.6) Absolute Monos (auto) 1.12 (0.0-1.3) Lymphocytes % 15.8 L (24.0-44.0) % Monocytes % 6.9 (0.0-12.0) % Eosinophils % 1.0 (0.00-5.0) % Basophils % 0.1 (0.0-0.4) % Absolute Granulocytes 12.38 H (1.4-6.9) Basophils # 0.02 (0-0.4) Sodium (137-145) mmol/L Potassium (3.5-5.1) mmol/L Chloride (98-107) mmol/L Carbon Dioxide (22-30) mmol/L Anion Gap (5-15) MEQ/L BUN (7-17) mg/dL Creatinine (0.52-1.04) mg/dL Estimated GFR ML/MIN Glucose (74-106) mg/dL Lactic Acid 1.2 (0.4-2.0) Calcium (8.4-10.2) mg/dL Total Bilirubin (0.2-1.3) mg/dL AST (14-36) U/L ALT (0-35) U/L Alkaline Phosphatase (38-126) U/L Troponin I (0.000-0.034) ng/mL Serum Total Protein (6.3-8.2) g/dL Albumin (3.5-5.0) g/dL Amylase (30-110) U/L Lipase (23-300) U/L Urine Color (YELLOW) Urine Appearance (CLEAR) Urine pH (5-6) Ur Specific [place] (1.005-1.025) Urine Protein (Negative) Urine Ketones (NEGATIVE) Urine Blood (0-5) Armando/ul Urine Nitrite (NEGATIVE) Urine Bilirubin (NEGATIVE) Urine Urobilinogen (0-1) mg/dL Ur Leukocyte Esterase (NEGATIVE) Urine WBC (Auto) (0-5) /HPF Urine RBC (Auto) (0-2) /HPF U Hyaline Cast (Auto) (0-2) /LPF U Epithel Cells (Auto) (FEW) /HPF Urine Bacteria (Auto) (NEGATIVE) /HPF Urine Culture Reflexed (NO) Urine Glucose (NEGATIVE) mg/dL - Progress Progress: improved, re-examined Progress Note: 06/15/20 09:31 Patient states she is feeling much better now. Counseled pt/family regarding: lab results, diagnosis, need for follow-up, rad results - Departure Departure Disposition: Home Clinical Impression: UTI (urinary tract infection), Cystitis Condition: Stable Critical Care Time: No Referrals: MONICA SOTO DO [Primary Care Provider] - Additional Instructions: Drink plenty of fluids. Take medication as prescribed. Follow-up with your primary care physician for further management and possible referral to urologist if indicated. Prescriptions: Levofloxacin [Levaquin 500 MG Tablet] 500 mg PO DAILY #7 tablet
[2020-06-15 08:36] LABS: Absolute Neutrophil Ct (ANC) 12.38 (1.4-6.9); BASOPHIL % 0.1 % (0.0-0.4); Basophil (Absolute #) 0.02 (0-0.4); Eosinophil (Absolute #) 0.16 (0-0.5); Hematocrit 43.3 % (35-47); Hemoglobin 13.8 gm/dl (12.0-16.0); Lymphocyte (Absolute #) 2.56 (1.0-4.6); Lymphocytes % 15.8 % (24.0-44.0); Mean Cell Volume 101.9 fl (78-100); Mean Corpuscular Hemoglobin 32.5 pg (26-32); Mean Corpuscular Hgb Concent. 31.9 g/dl (32-36); Mean Platelet Volume 10.5 fl (7.5-11.0); Monocyte (Absolute #) 1.12 (0.0-1.3); Monocytes % 6.9 % (0.0-12.0); Neutrophil % 76.2 % (36.0-66.0); Platelet Count 265 K/mm3 (150-450); Red Blood Count 4.25 M/mm3 (4.1-5.4); Red Cell Distribution Width 14.1 % (11.5-14.0); White Blood Count 16.2 K/mm3 (4.0-10.5)
[2020-06-15] MEDS ORDERED: Zofran 4 MG/2 ML VIAL ONE (08:39)
[2020-06-15] MEDS ORDERED: MORPHINE SULFATE 2 MG INJ ONE (08:39)
[2020-06-15] MEDS: Zofran 4 MG/2 ML VIAL IV ONE ×2 (08:41→09:36)
[2020-06-15] MEDS: MORPHINE SULFATE 2 MG INJ IV ONE ×2 (08:41→09:36)
[2020-06-15 08:44] LABS: ALBUMIN 4.2 g/dL (3.5-5.0); ALKALINE PHOSPHATASE 71 U/L (38-126); AMYLASE 91 U/L (30-110); ANION GAP 10.2 MEQ/L (5-15); BLOOD UREA NITROGEN 21 mg/dL (7-17); CHLORIDE 102 mmol/L (98-107); Calcium 9.8 mg/dL (8.4-10.2); Carbon Dioxide 32 mmol/L (22-30); Creatinine 1 0.92 mg/dL (0.52-1.04); Glucose 92 mg/dL (74-106); LIPASE 92 U/L (23-300); SGOT/AST 29 U/L (14-36); SGPT/ALT 23 U/L (0-35); SODIUM 139 mmol/L (137-145)
[2020-06-15 09:03] LABS: Appearance SLIGHTLY CLOUDY (CLEAR); Bacteria MODERATE /HPF (NEGATIVE); Bilirubin NEGATIVE (NEGATIVE); Blood LARGE Ery/ul (0-5); Epithelial Cells RARE /HPF (FEW); Glucose NEGATIVE (NEGATIVE); Hyaline Casts 0-2 /LPF (0-2); Ketones NEGATIVE (NEGATIVE); Leukocyte Esterase LARGE (NEGATIVE); Nitrite NEGATIVE (NEGATIVE); Protein,Urine Dip 100 (Negative); RBC 51-100 /HPF (0-2); Specific Gravity 1.009 (1.005-1.025); Urobilinogen NEGATIVE mg/dL (0-1); WBC >100 /HPF (0-5)
[2020-06-15] MEDS ORDERED: Levofloxacin 500MG/100ML D5W 500 MG/100 ML BAG IV STA (09:07)
[2020-06-15] MEDS ORDERED: Levofloxacin 500MG/100ML D5W 500 MG/100 ML BAG IV ONE (09:37)
[2020-06-15 10:00] VITALS: O2SAT 100
[2020-06-15 10:20] VITALS: BP 188/81; PULSE 71
--- NOTE | 2020-06-15 21:54 | XRAY ---
Indication: Left flank pain and hematuria. Multiple contiguous axial images obtained through the abdomen and pelvis without contrast using renal stone protocol. Comparison: May 02, 2019. Lung bases again demonstrates emphysema without infiltrate or effusion. Heart is not enlarged. Stable small hiatal hernia. No renal calculus or evidence for obstructive uropathy and system. Stable left renal cysts with rim of calcification and right renal cortical scarring. Stable tiny fundal calcified fibroid and cholecystectomy clips. Noncontrasted stomach and bowel loops appear nonobstructed. Again mild diffuse fecal debris predominantly in the ascending and transverse colon. No free fluid/air. Remaining liver, pancreas, spleen, adrenal glands, kidneys, ureters, bladder, and uterus appear unremarkable for noncontrasted exam. Stable moderate calcifications AAA. Osseous structures intact again with mild lumbosacral junction degenerative changes. Impression: 1. Negative renal calculus or evidence for obstructive uropathy. 2. Stable complex left renal cysts, right renal scarring, calcified uterine fibroid, hiatal hernia, pulmonary emphysema, and mild fecal stasis. Comment: Preliminary interpretation was made by [facility]. No critical discrepancy.
--- NOTE | 2020-06-15 21:56 | XRAY ---
Indication: Short of breath. COPD. Comparison: December 24, 2018. Portable apical lordotic chest again demonstrates COPD, right mid lung atelectasis/scarring, and left lung calcified granulomas. Heart is not enlarged. Bony thorax is intact. No new/acute findings.
== END 2020-06-15 10:29 | disposition home or self-care (01) ==
LOC: ED 08:01
DX: N30.90 Cystitis, unspecified without hematuria (principal); J44.9 Chronic obstructive pulmonary disease, unspecified; Z99.81 Dependence on supplemental oxygen; K21.9 Gastro-esophageal reflux disease without esophagitis; I10 Essential (primary) hypertension; Z79.899 Other long term (current) drug therapy; F41.9 Anxiety disorder, unspecified
CPT/HCPCS: 36000; 36415; 71045; 74176; 80053; 81001; 82150; 83605; 83690; 84484; 85025; 87077; 87086; 87186; 93005; 96365; 99284; J1956; J2270; J2405

== ENCOUNTER 2021-04-14 18:06 | Observation (INO) | payer MEDICARE ==
[2021-04-14] MEDS ORDERED: DUONEB 0.5-3 MG/3 ml Neb IH ONE ×2 (18:26→19:14)
[2021-04-14] MEDS ORDERED: solu-MEDROL 125 MG IV ONE (18:26)
[2021-04-14 18:28] LABS: A-aADO2 73; ABG HEMOGLOBIN 12.9; ABG POTASSIUM 4.1 (3.5-5.1); ARTERIAL BLD GAS O2 SATURATION 99.3 % (95-100); ARTERIAL BLD GAS TIDAL VOLUME 550 cc; ARTERIAL BLOOD GAS BASE EXCESS -1.4 (-2.0-2.0); ARTERIAL BLOOD GAS FIO2 40 %; ARTERIAL BLOOD GAS PCO2 49 mmHg (35-45); ARTERIAL BLOOD GAS PO2 151 mmHg (75-100); ARTERIAL BLOOD GAS VENT MODE AVAPS; ARTERIAL BLOOD GAS VENT RATE 14 /MIN; ARTERIAL BLOOD GAS pH 7.32 (7.35-7.45); CARBOXYHEMOGLOBIN 0.4 % THgb (0.0-6.9); HCO3- 25.2 (22-28); HGB O2 SAT 98.1 g/dF (94-100); Methhemoglobin 0.8 % (1.4-1.5)
[2021-04-14] MEDS ORDERED: solu-MEDROL 125 MG ONE (18:28)
[2021-04-14 18:29] LABS: ABG SITE LEFT RADIAL; ALLEN TEST OK? YES; ARTERIAL BLOOD GAS PEEP 7 cmH2O
[2021-04-14 18:40] LABS: ALBUMIN 4.6 g/dL (3.5-5.0); ALKALINE PHOSPHATASE 75 U/L (38-126); ANION GAP 13.6 MEQ/L (5-15); BLOOD UREA NITROGEN 16 mg/dL (7-17); CHLORIDE 102 mmol/L (98-107); Calcium 9.6 mg/dL (8.4-10.2); Carbon Dioxide 25 mmol/L (22-30); Creatinine 1 0.84 mg/dL (0.52-1.04); EST GLOMERULAR FILTRATION RATE > 60.0 ML/MIN; Glucose 113 mg/dL (74-106); Potassium 4.2 mmol/L (3.5-5.1); SGOT/AST 47 U/L (14-36); SGPT/ALT 29 U/L (0-35); SODIUM 137 mmol/L (137-145); Total Protein 7.1 g/dL (6.3-8.2)
[2021-04-14 18:44] LABS: Absolute Neutrophil Ct (ANC) 4.66 (1.4-6.9); BASOPHIL % 0.5 % (0.0-0.4); Basophil (Absolute #) 0.05 (0-0.4); Eosinophil % 2.5 % (0.00-5.0); Eosinophil (Absolute #) 0.24 (0-0.5); Hemoglobin 12.9 gm/dl (12.0-16.0); Lymphocyte (Absolute #) 3.72 (1.0-4.6); Lymphocytes % 38.5 % (24.0-44.0); Mean Cell Volume 101.7 fl (78-100); Mean Corpuscular Hgb Concent. 31.5 g/dl (32-36); Mean Platelet Volume 10.3 fl (7.5-11.0); Monocyte (Absolute #) 0.99 (0.0-1.3); Monocytes % 10.2 % (0.0-12.0); Neutrophil % 48.3 % (36.0-66.0); Platelet Count 431 K/mm3 (150-450); Red Blood Count 4.03 M/mm3 (4.1-5.4); Red Cell Distribution Width 13.1 % (11.5-14.0); White Blood Count 9.7 K/mm3 (4.0-10.5)
[2021-04-14] MEDS ORDERED: Ativan 2 MG/1 ML VIAL IV ONE (19:14)
[2021-04-14] MEDS ORDERED: Ativan 2 MG/1 ML VIAL ONE (19:18)
[2021-04-14 20:07] LABS: Appearance CLEAR (CLEAR); Bilirubin NEGATIVE (NEGATIVE); Blood SMALL Ery/ul (0-5); Glucose NEGATIVE (NEGATIVE); Ketones NEGATIVE (NEGATIVE); Leukocyte Esterase NEGATIVE (NEGATIVE); Mucus SLIGHT /HPF (NEGATIVE); Nitrite NEGATIVE (NEGATIVE); Protein,Urine Dip NEGATIVE (Negative); Specific Gravity 1.006 (1.005-1.025); Urobilinogen NEGATIVE mg/dL (0-1)
--- NOTE | 2021-04-14 23:26 | ERPHSYRPT ---
- History of Present Illness Time Seen by Provider: 04/14/21 18:10 Source: patient Exam Limitations: no limitations Patient Subjective Stated Complaint: Pt states "I have been short of breath for the past hour." Triage Nursing Assessment: PT presented in tripod position, unable to sit still, tachypneic on 3 LPM O2 via NC. PT speaking in two to three word sentences PT extremely diminished in all quadrants. PT extremely anxious. Physician History: Patient is a 70-year-old female with a history of COPD presents to our ED with shortness of breath. Patient states she has been experiencing shortness of breath for the past hour or so. Patient appears to be in respiratory distress. She is tripoding. She appears very anxious. Breath sounds are diminished. Patient only able to speak in 2-3 word sentences. No chest pain. No nausea vomiting or diaphoresis. No trauma no fever. Symptoms are moderate to severe in intensity. No specific worsening or improving factors. Patient voices no other complaints or concerns at this time. Timing/Duration: today Severity: severe Modifying Factors: Improves With: nothing Associated Symptoms: denies symptoms Allergies/Adverse Reactions: clarithromycin [From Biaxin] Allergy (Intermediate, Verified 06/15/20 08:18) constipation cephalexin monohydrate [From Keflex] Adverse Reaction (Mild, Verified 06/15/20 08:18) constipation Home Medications: Aspirin 81 mg PO DAILY 03/09/16 [History] Budesonide/Formoterol Fumarate [Symbicort 160-4.5 Mcg Inhaler] 6 gm IH BID 03/09/16 [History] Ipratropium/Albuterol Sulfate [Iprat-Albut 0.5-3(2.5) mg/3 ml] 3 ml NEB UD 03/09/16 [History] Albuterol Sulfate Mdi [Proair Hfa MDI] 2 puff IH BID PRN 12/24/18 [History] lisinopriL [Lisinopril] 5 mg PO DAILY 12/24/18 [History] Albuterol Sulfate 0.63 mg IH Q4HPRN PRN 05/21/19 [History] Multivitamin [Multivitamins] 1 each PO DAILY 05/21/19 [History] Clopidogrel Bisulfate 75 mg [PLAVIX 75 MG Tablet] 75 mg PO DAILY 04/14/21 [History] Diltiazem HCl [Diltiazem ER] 120 mg PO DAILY 04/14/21 [History] Umeclidinium [place] [Incruse Ellipta] 62.5 mcg IH DAILY 04/14/21 [History] Hx Tetanus, Diphtheria Vaccination/Date Given: No Hx Influenza Vaccination/Date Given: Yes Hx Pneumococcal Vaccination/Date Given: Yes Immunizations Up to Date: Yes Travel Risk - International Travel Have you traveled outside of the country in past 3 weeks: No - Coronavirus Screening Are you exhibiting any of the following symptoms?: No Close contact with a COVID-19 positive Pt in past 14-21 Days: No - Vaccine Status Have you recieved a Covid-19 vaccination: No - Review of Systems All Other Systems: Unable due to condition - Past Medical History Pertinent Past Medical History: Yes Neurological History: No Pertinent History ENT History: Cataracts Cardiac History: Hypertension Respiratory History: Asthma, COPD Endocrine Medical History: No Pertinent History Musculoskeletal History: Arthritis GI Medical History: GERD History: No Pertinent History Psycho-Social History: No Pertinent History Female Reproductive Disorders: No Pertinent History - Past Surgical History Past Surgical History: Yes Neuro Surgical History: No Pertinent History Cardiac: No Pertinent History Respiratory: No Pertinent History Gastrointestinal: Cholecystectomy Genitourinary: No Pertinent History Musculoskeletal: Orthopedic Surgery Female Surgical History: Section, Tubal Ligation Other Surgical History: Thumb surgery. 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 - Social History Smoking Status: Never smoker Exposure to second hand smoke: No Drug Use: none Patient Lives Alone: No - Nursing Vital Signs Nursing Vital Signs: Initial Vital Signs Temperature 98.8 F 04/14/21 18:08 Pulse Rate 122 H 04/14/21 18:08 Respiratory Rate 30 H 04/14/21 18:08 Blood Pressure 200/108 04/14/21 18:08 O2 Sat by Pulse Oximetry 90 L 04/14/21 18:08 Pain Scale Pain Intensity 0 - Physical Exam General Appearance: no apparent distress, alert Eye Exam: PERRL/EOMI, eyes nml inspection Ears, Nose, Throat Exam: normal ENT inspection, TMs normal, pharynx normal, moist mucous membranes Neck Exam: normal inspection, non-tender, supple, full range of motion Respiratory Exam: diminished breath sounds, wheezing (Faint wheezing at bases.), No respiratory distress Cardiovascular Exam: regular rate/rhythm, normal heart sounds, normal peripheral pulses Gastrointestinal/Abdomen Exam: soft, normal bowel sounds, No tenderness, No mass Back Exam: normal inspection, normal range of motion, No CVA tenderness, No vertebral tenderness Extremity Exam: normal inspection, normal range of motion, pelvis stable Neurologic Exam: alert, oriented x 3, cooperative, normal mood/affect, nml cerebellar function, sensation nml, No motor deficits Skin Exam: normal color, warm, dry, No rash Lymphatic Exam: No adenopathy SpO2 Interpretation: normal SpO2: 98 O2 Delivery: Room Air - Course Nursing assessment & vital signs reviewed: Yes EKG Interpreted by Me: RATE (97), Sinus Rhythm, NORMAL AXIS, NORMAL INTERVALS - Radiology Exams Chest X-ray Interpretation: Interpreted by me (E, left calcified granuloma. Intact bony thorax. No acute findings.) Ordered Tests: Active Orders 24 hr Category Date Time Status Grain Shoveler STAT Care 04/14/21 18:17 Active EKG-ER Only STAT Care 04/14/21 18:15 Active IV Insertion STAT Care 04/14/21 18:15 Active Pulse Oximetry (ED) STAT Care 04/14/21 18:15 Active CHEST 1 VIEW (PORTABLE) Stat Exams 04/14/21 18:17 Taken ABG [ARTERIAL BLOOD GASES] Urgent Lab 04/14/21 18:27 Completed CBC W DIFF Stat Lab 04/14/21 18:10 Completed CMP Stat Lab 04/14/21 18:10 Completed MAGNESIUM Stat Lab 04/14/21 18:10 Completed TROPONIN Q3H Lab 04/14/21 18:10 Completed TROPONIN Q3H Lab 04/14/21 20:57 Completed TROPONIN Q3H Lab 04/15/21 00:30 Ordered TROPONIN Q3H Lab 04/15/21 03:30 Ordered TROPONIN Q3H Lab 04/15/21 06:30 Ordered UA W/RFX UR CULTURE Stat Lab 04/14/21 18:56 Completed BiPap/CPAP STAT RT 04/14/21 18:47 Active Respiratory Therapy Assessment DAILY RT 04/14/21 19:25 Active Transfer Order Routine Transfer 04/14/21 Ordered Medication Summary Generic Name Dose Route Start Last Admin Trade Name Freq PRN Reason Stop Dose Admin Ceftriaxone Sodium/Dextrose 2 g in 50 mls @ 100 mls/hr 04/15/21 10:00 04/14/21 23:38 Rocephin 2 Gm-D5w 50ml Bag IV 04/18/21 09:59 100 mls/hr Q24H10 SERGIO 100 mls/hr Administration Discontinued Medications Generic Name Dose Route Start Last Admin Trade Name Steve PRN Reason Stop Dose Admin Albuterol/Ipratropium 3 ml 04/14/21 18:26 04/14/21 19:24 Duoneb 0.5-3 Mg/3 Ml Neb IH 04/14/21 18:27 3 ml STAT ONE Administration Albuterol/Ipratropium Confirm 04/14/21 19:14 Duoneb 0.5-3 Mg/3 Ml Neb Administered 04/14/21 19:15 Dose 3 ml IH .STK-MED ONE Lorazepam 0.5 mg 04/14/21 19:14 04/14/21 19:20 Ativan 2 Mg/1 Ml Vial IV 04/14/21 19:15 0.5 mg STAT ONE Administration Lorazepam Confirm 04/14/21 19:18 Ativan 2 Mg/1 Ml Vial Administered 04/14/21 19:19 Dose 2 mg .ROUTE .STK-MED ONE Methylprednisolone Sodium Succinate 125 mg 04/14/21 18:26 04/14/21 18:33 Solu-Medrol 125 Mg IV 04/14/21 18:27 125 mg STAT ONE Administration Methylprednisolone Sodium Succinate Confirm 04/14/21 18:28 Solu-Medrol 125 Mg Administered 04/14/21 18:29 Dose 125 mg .ROUTE .STK-MED ONE Lab/Rad Data: Laboratory Result Diagrams 04/14/21 18:10 04/14/21 18:10 Laboratory Results 04/14/21 04/14/21 04/14/21 Range/Units 20:57 19:38 18:56 WBC (4.0-10.5) K/mm3 RBC (4.1-5.4) M/mm3 Hgb (12.0-16.0) gm/dl Hct (35-47) % MCV (78-100) fl MCH (26-32) pg MCHC (32-36) g/dl RDW (11.5-14.0) % Plt Count (150-450) K/mm3 MPV (7.5-11.0) fl Gran % (36.0-66.0) % Eos # (Auto) (0-0.5) Absolute Lymphs (auto) (1.0-4.6) Absolute Monos (auto) (0.0-1.3) Lymphocytes % (24.0-44.0) % Monocytes % (0.0-12.0) % Eosinophils % (0.00-5.0) % Basophils % (0.0-0.4) % Absolute Granulocytes (1.4-6.9) Basophils # (0-0.4) Puncture Site pCO2 (35-45) mmHg pO2 (75-100) mmHg Base Excess (-2.0-2.0) O2 Saturation (94-100) g/dF ABG pH (7.35-7.45) ABG HCO3 (22-28) ABG O2 Sat (Measured) (95-100) % Dennys Test A-a Gradient a/A Ratio Hemoglobin Carboxyhemoglobin (0.0-6.9) % THgb Methemoglobin (1.4-1.5) % Temperature C POC O2 Flow Rate % Vent Mode Vent Rate /MIN Tidal Volume cc PEEP cmH2O Sodium (137-145) mmol/L Potassium (3.5-5.1) mmol/L Chloride (98-107) mmol/L Carbon Dioxide (22-30) mmol/L Anion Gap (5-15) MEQ/L BUN (7-17) mg/dL Creatinine (0.52-1.04) mg/dL Estimated GFR ML/MIN Glucose (74-106) mg/dL Calcium (8.4-10.2) mg/dL Magnesium (1.6-2.3) mg/dL Total Bilirubin (0.2-1.3) mg/dL AST (14-36) U/L ALT (0-35) U/L Alkaline Phosphatase (38-126) U/L Troponin I < 0.012 (0.000-0.034) ng/mL Serum Total Protein (6.3-8.2) g/dL Albumin (3.5-5.0) g/dL Urine Color STRAW (YELLOW) Urine Appearance CLEAR (CLEAR) Urine pH 6.0 (5-6) Ur Specific [place] 1.006 (1.005-1.025) Urine Protein NEGATIVE (Negative) Urine Ketones NEGATIVE (NEGATIVE) Urine Blood SMALL (0-5) Armando/ul Urine Nitrite NEGATIVE (NEGATIVE) Urine Bilirubin NEGATIVE (NEGATIVE) Urine Urobilinogen NEGATIVE (0-1) mg/dL Ur Leukocyte Esterase NEGATIVE (NEGATIVE) Urine WBC (Auto) NONE (0-5) /HPF Urine RBC (Auto) NONE (0-2) /HPF U Epithel Cells (Auto) NONE (FEW) /HPF Urine Bacteria (Auto) NONE (NEGATIVE) /HPF Urine Mucus (Auto) SLIGHT (NEGATIVE) /HPF Urine Culture Reflexed NO (NO) Urine Glucose NEGATIVE (NEGATIVE) mg/dL SARS-CoV-2 (PCR) NEGATIVE (NEGATIVE) 04/14/21 04/14/21 04/14/21 Range/Units 18:27 18:10 18:10 WBC (4.0-10.5) K/mm3 RBC (4.1-5.4) M/mm3 Hgb (12.0-16.0) gm/dl Hct (35-47) % MCV (78-100) fl MCH (26-32) pg MCHC (32-36) g/dl RDW (11.5-14.0) % Plt Count (150-450) K/mm3 MPV (7.5-11.0) fl Gran % (36.0-66.0) % Eos # (Auto) (0-0.5) Absolute Lymphs (auto) (1.0-4.6) Absolute Monos (auto) (0.0-1.3) Lymphocytes % (24.0-44.0) % Monocytes % (0.0-12.0) % Eosinophils % (0.00-5.0) % Basophils % (0.0-0.4) % Absolute Granulocytes (1.4-6.9) Basophils # (0-0.4) Puncture Site LEFT RADIAL pCO2 49 H (35-45) mmHg pO2 151 H* (75-100) mmHg Base Excess -1.4 (-2.0-2.0) O2 Saturation 98.1 (94-100) g/dF ABG pH 7.32 L (7.35-7.45) ABG HCO3 25.2 (22-28) ABG O2 Sat (Measured) 99.3 (95-100) % Dennys Test YES A-a Gradient 73 a/A Ratio 0.67 Hemoglobin 12.9 Carboxyhemoglobin 0.4 (0.0-6.9) % THgb Methemoglobin 0.8 L (1.4-1.5) % Temperature 37.0 C POC O2 Flow Rate 40 % Vent Mode AVAPS Vent Rate 14 /MIN Tidal Volume 550 cc PEEP 7 cmH2O Sodium 137 (137-145) mmol/L Potassium 4.1 4.2 (3.5-5.1) mmol/L Chloride 102 (98-107) mmol/L Carbon Dioxide 25 (22-30) mmol/L Anion Gap 13.6 (5-15) MEQ/L BUN 16 (7-17) mg/dL Creatinine 0.84 (0.52-1.04) mg/dL Estimated GFR > 60.0 ML/MIN Glucose 113 H (74-106) mg/dL Calcium 9.6 (8.4-10.2) mg/dL Magnesium 2.0 (1.6-2.3) mg/dL Total Bilirubin 0.40 (0.2-1.3) mg/dL AST 47 H (14-36) U/L ALT 29 (0-35) U/L Alkaline Phosphatase 75 (38-126) U/L Troponin I < 0.012 (0.000-0.034) ng/mL Serum Total Protein 7.1 (6.3-8.2) g/dL Albumin 4.6 (3.5-5.0) g/dL Urine Color (YELLOW) Urine Appearance (CLEAR) Urine pH (5-6) Ur Specific [place] (1.005-1.025) Urine Protein (Negative) Urine Ketones (NEGATIVE) Urine Blood (0-5) Armando/ul Urine Nitrite (NEGATIVE) Urine Bilirubin (NEGATIVE) Urine Urobilinogen (0-1) mg/dL Ur Leukocyte Esterase (NEGATIVE) Urine WBC (Auto) (0-5) /HPF Urine RBC (Auto) (0-2) /HPF U Epithel Cells (Auto) (FEW) /HPF Urine Bacteria (Auto) (NEGATIVE) /HPF Urine Mucus (Auto) (NEGATIVE) /HPF Urine Culture Reflexed (NO) Urine Glucose (NEGATIVE) mg/dL SARS-CoV-2 (PCR) (NEGATIVE) 04/14/21 Range/Units 18:10 WBC 9.7 (4.0-10.5) K/mm3 RBC 4.03 L (4.1-5.4) M/mm3 Hgb 12.9 (12.0-16.0) gm/dl Hct 41.0 (35-47) % MCV 101.7 H (78-100) fl MCH 32.0 (26-32) pg MCHC 31.5 L (32-36) g/dl RDW 13.1 (11.5-14.0) % Plt Count 431 (150-450) K/mm3 MPV 10.3 (7.5-11.0) fl Gran % 48.3 (36.0-66.0) % Eos # (Auto) 0.24 (0-0.5) Absolute Lymphs (auto) 3.72 (1.0-4.6) Absolute Monos (auto) 0.99 (0.0-1.3) Lymphocytes % 38.5 (24.0-44.0) % Monocytes % 10.2 (0.0-12.0) % Eosinophils % 2.5 (0.00-5.0) % Basophils % 0.5 (0.0-0.4) % Absolute Granulocytes 4.66 (1.4-6.9) Basophils # 0.05 (0-0.4) Puncture Site pCO2 (35-45) mmHg pO2 (75-100) mmHg Base Excess (-2.0-2.0) O2 Saturation (94-100) g/dF ABG pH (7.35-7.45) ABG HCO3 (22-28) ABG O2 Sat (Measured) (95-100) % Dennys Test A-a Gradient a/A Ratio Hemoglobin Carboxyhemoglobin (0.0-6.9) % THgb Methemoglobin (1.4-1.5) % Temperature C POC O2 Flow Rate % Vent Mode Vent Rate /MIN Tidal Volume cc PEEP cmH2O Sodium (137-145) mmol/L Potassium (3.5-5.1) mmol/L Chloride (98-107) mmol/L Carbon Dioxide (22-30) mmol/L Anion Gap (5-15) MEQ/L BUN (7-17) mg/dL Creatinine (0.52-1.04) mg/dL Estimated GFR ML/MIN Glucose (74-106) mg/dL Calcium (8.4-10.2) mg/dL Magnesium (1.6-2.3) mg/dL Total Bilirubin (0.2-1.3) mg/dL AST (14-36) U/L ALT (0-35) U/L Alkaline Phosphatase (38-126) U/L Troponin I (0.000-0.034) ng/mL Serum Total Protein (6.3-8.2) g/dL Albumin (3.5-5.0) g/dL Urine Color (YELLOW) Urine Appearance (CLEAR) Urine pH (5-6) Ur Specific [place] (1.005-1.025) Urine Protein (Negative) Urine Ketones (NEGATIVE) Urine Blood (0-5) Armando/ul Urine Nitrite (NEGATIVE) Urine Bilirubin (NEGATIVE) Urine Urobilinogen (0-1) mg/dL Ur Leukocyte Esterase (NEGATIVE) Urine WBC (Auto) (0-5) /HPF Urine RBC (Auto) (0-2) /HPF U Epithel Cells (Auto) (FEW) /HPF Urine Bacteria (Auto) (NEGATIVE) /HPF Urine Mucus (Auto) (NEGATIVE) /HPF Urine Culture Reflexed (NO) Urine Glucose (NEGATIVE) mg/dL SARS-CoV-2 (PCR) (NEGATIVE) - Progress Progress: improved Progress Note: EKGs performed upon arrival however they were unable to be read due to large artifact from motion. Patient was very anxious. However we did repeat the EKG after she calmed down. Sinus rhythm observed. Rate of 97. No ischemic changes. Chest x-ray negative for acute pathology. Patient anxiety improved after administration of Ativan. Patient initially declined DuoNeb. However she agreed to it. Patient improved immediately thereafter. Patient received a dose of Solu-Medrol. Vital stable. Case discussed with Dr. Rodrigues who accepts admission to observation. Plan of care discussed with patient. She agrees to admission at [facility] for further evaluation and treatment. Patient is Covid negative 04/14/21 23: Will see patient in: hospital (observation) Counseled pt/family regarding: lab results, diagnosis, rad results - Departure Departure Disposition: Observation Clinical Impression: COPD exacerbation Condition: Stable Critical Care Time: No Referrals: MONICA SOTO DO [Primary Care Provider] - Instructions: Chronic Obstructive Pulmonary Disease Additional Instructions: Discharge/Care Plan SOCODOMENICO PAGE PRIMITIVO was seen on 04/14/21 in the Emergency Room. The patient was counseled regarding Diagnosis,Lab results, Imaging studies, need for follow up and when to return to the Emergency Room. Prescriptions given: Discharge Note I have spoken with the patient and/or caregivers. I have explained the patient's condition, diagnosis and treatment plan based on the information available to me at this time. I have answered the patient's and/or caregiver's questions and addressed any concerns. The patient and/or caregivers have as good understanding of the patient's diagnosis, condition and treatment plan as can be expected at this point. The vital signs have been stable. The patient's condition is stable and appropriate for discharge from the emergency department. The patient will pursue further outpatient evaluation with the primary care physician or other designated or consulting physician as outlined in the discharge instructions. The patient and/or caregivers are agreeable to this plan of care and follow-up instructions have been explained in detail. The patient and/or caregivers have received these instruction. The patient/and or caregivers are aware that any significant change in condition or worsening of symptoms should prompt an immediate return to this or the closest emergency department or call 911.
[2021-04-14] MEDS ORDERED: ROCEPHIN 2 Gm-D5w 50ML BAG** 2 G/50 ML IVPB IV ONE (23:37)
[2021-04-15] MEDS ORDERED: DUONEB 0.5-3 MG/3 ml Neb IH ONE (00:01)
[2021-04-15] MEDS: DUONEB 0.5-3 MG/3 ml Neb IH PRN ×2 (00:05→04:48)
[2021-04-15] MEDS: solu-MEDROL 125 MG IV SCH ×4 (00:45→18:10)
[2021-04-15] MEDS ORDERED: Ativan 2 MG/1 ML VIAL IV PRN (00:49)
[2021-04-15 05:14] LABS: Hematocrit 39.8 % (35-47); Hemoglobin 12.5 gm/dl (12.0-16.0); Mean Cell Volume 101.3 fl (78-100); Mean Corpuscular Hemoglobin 31.8 pg (26-32); Mean Corpuscular Hgb Concent. 31.4 g/dl (32-36); Mean Platelet Volume 10.1 fl (7.5-11.0); Platelet Count 402 K/mm3 (150-450); Red Blood Count 3.93 M/mm3 (4.1-5.4); Red Cell Distribution Width 12.9 % (11.5-14.0); White Blood Count 8.8 K/mm3 (4.0-10.5)
[2021-04-15 05:55] LABS: ALBUMIN 4.4 g/dL (3.5-5.0); ALKALINE PHOSPHATASE 60 U/L (38-126); ANION GAP 17.4 MEQ/L (5-15); BLOOD UREA NITROGEN 17 mg/dL (7-17); CHLORIDE 102 mmol/L (98-107); Carbon Dioxide 24 mmol/L (22-30); Creatinine 1 0.72 mg/dL (0.52-1.04); EST GLOMERULAR FILTRATION RATE > 60.0 ML/MIN; Glucose 152 mg/dL (74-106); Potassium 4.5 mmol/L (3.5-5.1); SGOT/AST 44 U/L (14-36); SODIUM 139 mmol/L (137-145); Total Protein 6.9 g/dL (6.3-8.2)
[2021-04-15 06:03] LABS: SGPT/ALT 32 U/L (0-35)
[2021-04-15] MEDS: DUONEB 0.5-3 MG/3 ml Neb IH SCH ×4 (07:24→19:35)
--- NOTE | 2021-04-15 08:59 | XRAY ---
Indication: Dyspnea. Comparison: June 15, 2020. Portable apical lordotic chest unchanged again demonstrating COPD, right midlung subsegmental atelectasis/scarring, and left lung calcified granulomas. Heart not enlarged. Bony thorax intact. No new/acute findings.
[2021-04-15] MEDS ORDERED: ROCEPHIN 2 Gm-D5w 50ML BAG** 2 G/50 ML IVPB IV SCH ×2 (10:00→22:00)
[2021-04-15] MEDS ORDERED: Tums EX 750 MG PO PRN (10:21)
[2021-04-15] MEDS ORDERED: NON-FORMULARY ITEM (Albuterol Sulfate Mdi*** 2 PUFF) IH SCH (10:45)
[2021-04-15] MEDS: THERAGRAN MULTIVITAMIN PO SCH (11:26)
[2021-04-15] MEDS: ECOTRIN 81 MG PO SCH (11:26)
[2021-04-15] MEDS: Calcium 500MG W/Vit D Tablet PO SCH (11:26)
[2021-04-15] MEDS: Zestril 5 MG PO SCH (11:26)
[2021-04-15] MEDS: Cardizem CD 120 MG PO SCH (11:27)
[2021-04-15] MEDS: PLAVIX 75 MG Tablet PO SCH (11:27)
[2021-04-15] MEDS: DALIRESP PO SCH (11:28)
[2021-04-15] MEDS: Flonase NASAL NS SCH (11:39)
--- NOTE | 2021-04-15 12:18 | PCM.HP ---
History of Present Illness - Chief Complaint Chief Complaint: COPD exacerbation History of Present Illness: is a 70 year old female patient of mine who presented to ER in respiratory distress. PMHx includes HTN,Arthritis ,GERD, asthma ,COPD-oxygen dependent followed by Ear Nose Throat Physician Dr Meyer. Patient states she has not been using duoneb treatments for 3 days because she read that her new inhaler Incrusa Ellipta would interact with it. I spoke to Dr Meyer's nurse and patient had been given the message from Dr Meyer that she can continue both (Incrusa is long acting and Duoneb is short acting) ER serial troponins were not elevated. Patient follows with Dr Garzon ,County [employer] Agent. - Review of Systems Constitutional: Weakness Eyes: No Symptoms Ears, Nose, & Throat: Sinus Drainage Respiratory: Short Of Breath, Wheezing Cardiac: Chest Pain Abdominal/Gastrointestinal: Appetite Changes (states food tases different like mold.), Other (denies abd pain or N/V/D) Genitourinary Symptoms: No Symptoms Musculoskeletal: Arthralgias (chronic) Skin: Dryness Neurological: Other (no focal weakness but is weak in general) Psychological: Anxiety, Depression Endocrine: No Symptoms Hematologic/Lymphatic: No Symptoms Medications & Allergies Home Medications: Home Medication List Aspirin 81 mg PO DAILY 03/09/16 [History Confirmed 04/14/21] Budesonide/Formoterol Fumarate [Symbicort 160-4.5 Mcg Inhaler] 6 gm IH BID 03/09/16 [History Confirmed 04/14/21] Ipratropium/Albuterol Sulfate [Iprat-Albut 0.5-3(2.5) mg/3 ml] 3 ml NEB BID 03/09/16 [History Confirmed 04/15/21] Albuterol Sulfate Mdi [Proair Hfa MDI] 2 puff IH BID PRN 12/24/18 [History Confirmed 04/14/21] lisinopriL [Lisinopril] 5 mg PO DAILY 12/24/18 [History Confirmed 04/14/21] Omeprazole 40 mg PO DAILY #30 capsule. 12/25/18 [Rx Confirmed 04/14/21] Multivitamin [Multivitamins] 1 each PO DAILY 05/21/19 [History Confirmed 04/14/21] Clopidogrel Bisulfate 75 mg [PLAVIX 75 MG Tablet] 75 mg PO DAILY 04/14/21 [History Confirmed 04/14/21] Diltiazem HCl [Diltiazem ER] 120 mg PO DAILY 04/14/21 [History Confirmed 04/14/21] Umeclidinium [place] [Incruse Ellipta] 62.5 mcg IH DAILY 04/14/21 [History Confirmed 04/14/21] Alendronate Sodium 70 mg [Fosamax 70 MG] 70 mg PO Q7D@0600 04/15/21 [History Confirmed 04/15/21] Calcium Carbonate/Vitamin D3 [Calcium 600 mg-D3 20 Mcg Tab] 1 each PO DAILY 04/15/21 [History Confirmed 04/15/21] Fluticasone Propionate [Flonase NASAL] 1 each NS DAILY 04/15/21 [History Confirmed 04/15/21] Roflumilast [Daliresp] 250 mcg PO DAILY 04/15/21 [History Confirmed 04/15/21] Allergies/Adverse Reactions: Allergies Allergy/AdvReac Type Severity Reaction Status Date / Time clarithromycin [From Biaxin] Allergy Intermediate Verified 06/15/20 08:18 cephalexin monohydrate AdvReac Mild Verified 06/15/20 08:18 [From Keflex] - Past Medical History Past Medical History: Yes Neurological History: No Pertinent History ENT History: Cataracts Cardiac History: Hypertension Respiratory History: Asthma, COPD Endocrine Medical History: No Pertinent History Musculoskelatal History: Arthritis GI Medical History: GERD History: No Pertinent History Pyscho-Social History: No Pertinent History Reproductive Disorders: No Pertinent History - Female History Are you now?: No - Past Surgical History Past Surgical History: Yes Neuro Surgical History: No Pertinent History Cardiac History: No Pertinent History Respiratory Surgery: No Pertinent History GI Surgical History: Cholecystectomy Genitourinary Surgical Hx: No Pertinent History Musculskeletal Surgical Hx: Orthopedic Surgery Female Surgical History: Section, Tubal Ligation Other Surgical History: Thumb surgery. 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 - Social History Smoking Status: Former smoker Exposure to second hand smoke: No Alcohol: None Drug Use: none - Physical Exam Vital Signs: Vital Signs - 24 hr Temp Pulse Resp BP Pulse Ox 06/09/21 11:45 96.4 F 98 H 20 156/67 94 L 04/15/21 11:19 98 H 18 94 L 04/15/21 08:00 98.0 F 94 H 18 125/61 97 04/15/21 07:24 87 18 94 L 04/15/21 04:54 104 H 22 96 04/15/21 04:00 97.9 F 85 19 131/61 97 04/15/21 01:04 89 24 97 04/15/21 00:08 97.9 F 87 24 152/67 97 04/14/21 23:41 98 04/14/21 23:00 83 18 149/84 98 04/14/21 22:00 83 22 157/86 98 04/14/21 21:00 89 26 H 170/93 99 04/14/21 20:00 100 H 22 176/100 100 04/14/21 19:25 114 H 27 H 99 04/14/21 19:06 106 H 22 170/90 99 04/14/21 18:33 100 04/14/21 18:08 98.8 F 122 H 30 H 200/108 99 Oxygen-Last 24 hours Oxygen Flowrate (L/min)-RT 4 General Appearance: mild distress (conversational dyspne and anxiety,teary eyed- voices fearful of going to rehab"I will never get out of there") Ears, Nose, Throat Exam: normal ENT inspection Neck Exam: normal inspection Respiratory Exam: diminished breath sounds Cardiovascular Exam: tachycardia (regularno murmur), other (no edema) Results - Labs Lab/Micro Results: Lab Results-Last 24 Hours 04/14/21 04/14/21 04/14/21 Range/Units 18:10 18:10 18:10 WBC 9.7 (4.0-10.5) K/mm3 RBC 4.03 L (4.1-5.4) M/mm3 Hgb 12.9 (12.0-16.0) gm/dl Hct 41.0 (35-47) % MCV 101.7 H (78-100) fl MCH 32.0 (26-32) pg MCHC 31.5 L (32-36) g/dl RDW 13.1 (11.5-14.0) % Plt Count 431 (150-450) K/mm3 MPV 10.3 (7.5-11.0) fl Gran % 48.3 (36.0-66.0) % Eos # (Auto) 0.24 (0-0.5) Absolute Lymphs (auto) 3.72 (1.0-4.6) Absolute Monos (auto) 0.99 (0.0-1.3) Lymphocytes % 38.5 (24.0-44.0) % Monocytes % 10.2 (0.0-12.0) % Eosinophils % 2.5 (0.00-5.0) % Basophils % 0.5 (0.0-0.4) % Absolute Granulocytes 4.66 (1.4-6.9) Basophils # 0.05 (0-0.4) Puncture Site pCO2 (35-45) mmHg pO2 (75-100) mmHg Base Excess (-2.0-2.0) O2 Saturation (94-100) g/dF ABG pH (7.35-7.45) ABG HCO3 (22-28) ABG O2 Sat (Measured) (95-100) % Dennys Test A-a Gradient a/A Ratio Hemoglobin Carboxyhemoglobin (0.0-6.9) % THgb Methemoglobin (1.4-1.5) % Temperature C POC O2 Flow Rate % Vent Mode Vent Rate /MIN Tidal Volume cc PEEP cmH2O Sodium 137 (137-145) mmol/L Potassium 4.2 (3.5-5.1) mmol/L Chloride 102 (98-107) mmol/L Carbon Dioxide 25 (22-30) mmol/L Anion Gap 13.6 (5-15) MEQ/L BUN 16 (7-17) mg/dL Creatinine 0.84 (0.52-1.04) mg/dL Estimated GFR > 60.0 ML/MIN Glucose 113 H (74-106) mg/dL Calcium 9.6 (8.4-10.2) mg/dL Magnesium 2.0 (1.6-2.3) mg/dL Total Bilirubin 0.40 (0.2-1.3) mg/dL AST 47 H (14-36) U/L ALT 29 (0-35) U/L Alkaline Phosphatase 75 (38-126) U/L Troponin I < 0.012 (0.000-0.034) ng/mL Serum Total Protein 7.1 (6.3-8.2) g/dL Albumin 4.6 (3.5-5.0) g/dL Urine Color (YELLOW) Urine Appearance (CLEAR) Urine pH (5-6) Ur Specific [place] (1.005-1.025) Urine Protein (Negative) Urine Ketones (NEGATIVE) Urine Blood (0-5) Armando/ul Urine Nitrite (NEGATIVE) Urine Bilirubin (NEGATIVE) Urine Urobilinogen (0-1) mg/dL Ur Leukocyte Esterase (NEGATIVE) Urine WBC (Auto) (0-5) /HPF Urine RBC (Auto) (0-2) /HPF U Epithel Cells (Auto) (FEW) /HPF Urine Bacteria (Auto) (NEGATIVE) /HPF Urine Mucus (Auto) (NEGATIVE) /HPF Urine Culture Reflexed (NO) Urine Glucose (NEGATIVE) mg/dL SARS-CoV-2 (PCR) (NEGATIVE) 04/14/21 04/14/21 04/14/21 Range/Units 18:27 18:56 19:38 WBC (4.0-10.5) K/mm3 RBC (4.1-5.4) M/mm3 Hgb (12.0-16.0) gm/dl Hct (35-47) % MCV (78-100) fl MCH (26-32) pg MCHC (32-36) g/dl RDW (11.5-14.0) % Plt Count (150-450) K/mm3 MPV (7.5-11.0) fl Gran % (36.0-66.0) % Eos # (Auto) (0-0.5) Absolute Lymphs (auto) (1.0-4.6) Absolute Monos (auto) (0.0-1.3) Lymphocytes % (24.0-44.0) % Monocytes % (0.0-12.0) % Eosinophils % (0.00-5.0) % Basophils % (0.0-0.4) % Absolute Granulocytes (1.4-6.9) Basophils # (0-0.4) Puncture Site LEFT RADIAL pCO2 49 H (35-45) mmHg pO2 151 H* (75-100) mmHg Base Excess -1.4 (-2.0-2.0) O2 Saturation 98.1 (94-100) g/dF ABG pH 7.32 L (7.35-7.45) ABG HCO3 25.2 (22-28) ABG O2 Sat (Measured) 99.3 (95-100) % Dennys Test YES A-a Gradient 73 a/A Ratio 0.67 Hemoglobin 12.9 Carboxyhemoglobin 0.4 (0.0-6.9) % THgb Methemoglobin 0.8 L (1.4-1.5) % Temperature 37.0 C POC O2 Flow Rate 40 % Vent Mode AVAPS Vent Rate 14 /MIN Tidal Volume 550 cc PEEP 7 cmH2O Sodium (137-145) mmol/L Potassium 4.1 (3.5-5.1) mmol/L Chloride (98-107) mmol/L Carbon Dioxide (22-30) mmol/L Anion Gap (5-15) MEQ/L BUN (7-17) mg/dL Creatinine (0.52-1.04) mg/dL Estimated GFR ML/MIN Glucose (74-106) mg/dL Calcium (8.4-10.2) mg/dL Magnesium (1.6-2.3) mg/dL Total Bilirubin (0.2-1.3) mg/dL AST (14-36) U/L ALT (0-35) U/L Alkaline Phosphatase (38-126) U/L Troponin I (0.000-0.034) ng/mL Serum Total Protein (6.3-8.2) g/dL Albumin (3.5-5.0) g/dL Urine Color STRAW (YELLOW) Urine Appearance CLEAR (CLEAR) Urine pH 6.0 (5-6) Ur Specific [place] 1.006 (1.005-1.025) Urine Protein NEGATIVE (Negative) Urine Ketones NEGATIVE (NEGATIVE) Urine Blood SMALL (0-5) Armando/ul Urine Nitrite NEGATIVE (NEGATIVE) Urine Bilirubin NEGATIVE (NEGATIVE) Urine Urobilinogen NEGATIVE (0-1) mg/dL Ur Leukocyte Esterase NEGATIVE (NEGATIVE) Urine WBC (Auto) NONE (0-5) /HPF Urine RBC (Auto) NONE (0-2) /HPF U Epithel Cells (Auto) NONE (FEW) /HPF Urine Bacteria (Auto) NONE (NEGATIVE) /HPF Urine Mucus (Auto) SLIGHT (NEGATIVE) /HPF Urine Culture Reflexed NO (NO) Urine Glucose NEGATIVE (NEGATIVE) mg/dL SARS-CoV-2 (PCR) NEGATIVE (NEGATIVE) 04/14/21 04/15/21 04/15/21 Range/Units 20:57 01:05 04:45 WBC (4.0-10.5) K/mm3 RBC (4.1-5.4) M/mm3 Hgb (12.0-16.0) gm/dl Hct (35-47) % MCV (78-100) fl MCH (26-32) pg MCHC (32-36) g/dl RDW (11.5-14.0) % Plt Count (150-450) K/mm3 MPV (7.5-11.0) fl Gran % (36.0-66.0) % Eos # (Auto) (0-0.5) Absolute Lymphs (auto) (1.0-4.6) Absolute Monos (auto) (0.0-1.3) Lymphocytes % (24.0-44.0) % Monocytes % (0.0-12.0) % Eosinophils % (0.00-5.0) % Basophils % (0.0-0.4) % Absolute Granulocytes (1.4-6.9) Basophils # (0-0.4) Puncture Site pCO2 (35-45) mmHg pO2 (75-100) mmHg Base Excess (-2.0-2.0) O2 Saturation (94-100) g/dF ABG pH (7.35-7.45) ABG HCO3 (22-28) ABG O2 Sat (Measured) (95-100) % Dennys Test A-a Gradient a/A Ratio Hemoglobin Carboxyhemoglobin (0.0-6.9) % THgb Methemoglobin (1.4-1.5) % Temperature C POC O2 Flow Rate % Vent Mode Vent Rate /MIN Tidal Volume cc PEEP cmH2O Sodium (137-145) mmol/L Potassium (3.5-5.1) mmol/L Chloride (98-107) mmol/L Carbon Dioxide (22-30) mmol/L Anion Gap (5-15) MEQ/L BUN (7-17) mg/dL Creatinine (0.52-1.04) mg/dL Estimated GFR ML/MIN Glucose (74-106) mg/dL Calcium (8.4-10.2) mg/dL Magnesium (1.6-2.3) mg/dL Total Bilirubin (0.2-1.3) mg/dL AST (14-36) U/L ALT (0-35) U/L Alkaline Phosphatase (38-126) U/L Troponin I < 0.012 < 0.012 < 0.012 (0.000-0.034) ng/mL Serum Total Protein (6.3-8.2) g/dL Albumin (3.5-5.0) g/dL Urine Color (YELLOW) Urine Appearance (CLEAR) Urine pH (5-6) Ur Specific [place] (1.005-1.025) Urine Protein (Negative) Urine Ketones (NEGATIVE) Urine Blood (0-5) Armando/ul Urine Nitrite (NEGATIVE) Urine Bilirubin (NEGATIVE) Urine Urobilinogen (0-1) mg/dL Ur Leukocyte Esterase (NEGATIVE) Urine WBC (Auto) (0-5) /HPF Urine RBC (Auto) (0-2) /HPF U Epithel Cells (Auto) (FEW) /HPF Urine Bacteria (Auto) (NEGATIVE) /HPF Urine Mucus (Auto) (NEGATIVE) /HPF Urine Culture Reflexed (NO) Urine Glucose (NEGATIVE) mg/dL SARS-CoV-2 (PCR) (NEGATIVE) 04/15/21 04/15/21 04/15/21 Range/Units 04:45 04:45 06:30 WBC 8.8 (4.0-10.5) K/mm3 RBC 3.93 L (4.1-5.4) M/mm3 Hgb 12.5 (12.0-16.0) gm/dl Hct 39.8 (35-47) % MCV 101.3 H (78-100) fl MCH 31.8 (26-32) pg MCHC 31.4 L (32-36) g/dl RDW 12.9 (11.5-14.0) % Plt Count 402 (150-450) K/mm3 MPV 10.1 (7.5-11.0) fl Gran % (36.0-66.0) % Eos # (Auto) (0-0.5) Absolute Lymphs (auto) (1.0-4.6) Absolute Monos (auto) (0.0-1.3) Lymphocytes % (24.0-44.0) % Monocytes % (0.0-12.0) % Eosinophils % (0.00-5.0) % Basophils % (0.0-0.4) % Absolute Granulocytes (1.4-6.9) Basophils # (0-0.4) Puncture Site pCO2 (35-45) mmHg pO2 (75-100) mmHg Base Excess (-2.0-2.0) O2 Saturation (94-100) g/dF ABG pH (7.35-7.45) ABG HCO3 (22-28) ABG O2 Sat (Measured) (95-100) % Dennys Test A-a Gradient a/A Ratio Hemoglobin Carboxyhemoglobin (0.0-6.9) % THgb Methemoglobin (1.4-1.5) % Temperature C POC O2 Flow Rate % Vent Mode Vent Rate /MIN Tidal Volume cc PEEP cmH2O Sodium 139 (137-145) mmol/L Potassium 4.5 (3.5-5.1) mmol/L Chloride 102 (98-107) mmol/L Carbon Dioxide 24 (22-30) mmol/L Anion Gap 17.4 H (5-15) MEQ/L BUN 17 (7-17) mg/dL Creatinine 0.72 (0.52-1.04) mg/dL Estimated GFR > 60.0 ML/MIN Glucose 152 H (74-106) mg/dL Calcium 10.0 (8.4-10.2) mg/dL Magnesium (1.6-2.3) mg/dL Total Bilirubin 0.20 (0.2-1.3) mg/dL AST 44 H (14-36) U/L ALT 32 (0-35) U/L Alkaline Phosphatase 60 (38-126) U/L Troponin I < 0.012 (0.000-0.034) ng/mL Serum Total Protein 6.9 (6.3-8.2) g/dL Albumin 4.4 (3.5-5.0) g/dL Urine Color (YELLOW) Urine Appearance (CLEAR) Urine pH (5-6) Ur Specific [place] (1.005-1.025) Urine Protein (Negative) Urine Ketones (NEGATIVE) Urine Blood (0-5) Armando/ul Urine Nitrite (NEGATIVE) Urine Bilirubin (NEGATIVE) Urine Urobilinogen (0-1) mg/dL Ur Leukocyte Esterase (NEGATIVE) Urine WBC (Auto) (0-5) /HPF Urine RBC (Auto) (0-2) /HPF U Epithel Cells (Auto) (FEW) /HPF Urine Bacteria (Auto) (NEGATIVE) /HPF Urine Mucus (Auto) (NEGATIVE) /HPF Urine Culture Reflexed (NO) Urine Glucose (NEGATIVE) mg/dL SARS-CoV-2 (PCR) (NEGATIVE) - Radiology Impressions Radiology Exams & Impressions: Radiology Procedures Category Date Time Status CHEST 1 VIEW (PORTABLE) Stat Exams 04/14/21 18:17 Completed - Other Procedures and Tests Respiratory Therapy 04/14/21 19:25 Respiratory Therapy Assessment DAILY 04/14/21 23:55 Oxygen Nasal Cannula 4 lpm Assessment/Plan (1) COPD exacerbation Current Visit: Yes Status: Acute Assessment & Plan: Is followed by Dr Meyer at [facility] changes recent and patient stopped her Duoneb tx .Patient states new inhaler Incrusa cannot be taken with Ipratroprium and shows me the package insert.She has been 3 days without Duneb Txs. ER restarted Duoneb txs , Solumedrol and Rocephin and Bipap. Code(s): J44.1 - CHRONIC OBSTRUCTIVE PULMONARY DISEASE W (ACUTE) EXACERBATION (2) Anxiety Current Visit: Yes Status: Acute Assessment & Plan: Ativan is helping-fearful of dying Code(s): F41.9 - ANXIETY DISORDER, UNSPECIFIED (3) Chest pain Current Visit: Yes Status: Resolved Code(s): R07.9 - CHEST PAIN, UNSPECIFIED
[2021-04-15] MEDS ORDERED: Advair Hfa 230/21 Mcg COMMON CANISTER IH SCH (19:00)
[2021-04-15] MEDS: Ativan 2 MG/1 ML VIAL IV PRN (20:28)
[2021-04-15] MEDS ORDERED: NON-FORMULARY ITEM (Budesonide/Formoterol Fumarate [Symbicort 160-4.5 Mcg Inhaler] 6 GM) IH SCH (22:00)
[2021-04-15] MEDS ORDERED: DUONEB 0.5-3 MG/3 ml Neb IH SCH (22:00)
[2021-04-16] MEDS: solu-MEDROL 125 MG IV SCH ×5 (00:11→21:46)
[2021-04-16] MEDS: DUONEB 0.5-3 MG/3 ml Neb IH PRN ×2 (04:04→13:55)
[2021-04-16] MEDS: DUONEB 0.5-3 MG/3 ml Neb IH SCH ×4 (07:08→18:56)
[2021-04-16] MEDS: PATIENT OWN MEDICATION IH SCH ×2 (07:08→20:01)
[2021-04-16] MEDS: Ativan 2 MG/1 ML VIAL IV PRN (08:56)
[2021-04-16] MEDS ORDERED: NON-FORMULARY ITEM (Multivitamin [Multivitamins] 1 EACH) PO SCH (10:00)
[2021-04-16] MEDS ORDERED: Flonase NASAL NS SCH (10:00)
[2021-04-16] MEDS ORDERED: VITAMIN D3 PO SCH (10:00)
[2021-04-16] MEDS ORDERED: NON-FORMULARY ITEM (Diltiazem Hcl [Diltiazem 24hr Er] 120 MG) PO SCH (10:00)
[2021-04-16] MEDS ORDERED: BABY ASPIRIN 81 MG CHEW PO SCH (10:00)
[2021-04-16] MEDS ORDERED: CALCIUM CARBONATE PO SCH (10:00)
[2021-04-16] MEDS ORDERED: NON-FORMULARY ITEM (Umeclidinium Bromide [Incruse Ellipta] 62.5 MCG) IH SCH (10:00)
[2021-04-16] MEDS ORDERED: NON-FORMULARY ITEM (Omeprazole [Omeprazole] 40 MG) PO SCH (10:00)
[2021-04-16] MEDS: Protonix 40MG Tablet PO SCH (10:03)
[2021-04-16] MEDS: Calcium 500MG W/Vit D Tablet PO SCH (10:03)
[2021-04-16] MEDS: PLAVIX 75 MG Tablet PO SCH (10:03)
[2021-04-16] MEDS: Cardizem CD 120 MG PO SCH (10:03)
[2021-04-16] MEDS: Diflucan 100 MG PO SCH (10:03)
[2021-04-16] MEDS: Zestril 5 MG PO SCH (10:03)
[2021-04-16] MEDS: THERAGRAN MULTIVITAMIN PO SCH (10:03)
[2021-04-16] MEDS: ECOTRIN 81 MG PO SCH (10:03)
[2021-04-16] MEDS: Flonase NASAL NS SCH (10:04)
[2021-04-16] MEDS: DALIRESP PO SCH (10:04)
--- NOTE | 2021-04-16 17:10 | PCM.NOTE ---
Date and Time: 04/16/21 1705 Subjective Assessment: Patient is breathing some better but is very sob when up to bedside commode. Has been crying alot thinking about the assisted. RT has evaluated and O2 is set at 3L with sats in the 90s while at rest. Objective Exam General Appearance: anxiety Neurologic Exam: alert, oriented x 3, cooperative Skin Exam: dry, pale Respiratory Exam: diminished breath sounds, wheezing (left mid posterior) Gastrointestinal/Abdomen Exam: soft Extremity Exam: other (no edema,thin skin bruising) OBJECTIVE DATA Vital Signs: Vital Signs - 24 hr Temp Pulse Resp BP Pulse Ox 04/16/21 16:00 98.6 F 86 22 144/75 95 04/16/21 14:35 85 20 97 04/16/21 11:52 98.2 F 85 21 138/60 97 04/16/21 11:26 78 20 98 04/16/21 07:10 98.2 F 82 22 128/61 98 04/16/21 07:09 81 18 98 04/16/21 04:04 80 24 93 L 04/16/21 04:00 97.6 F 80 24 134/59 96 04/16/21 00:00 98.5 F 82 22 115/55 98 04/15/21 20:55 88 22 98 04/15/21 19:33 98.4 F 76 25 H 140/58 96 Pain Assessment - Last Documented Pain Intensity 4 Intake and Output: Intake & Output 04/14/21 04/15/21 04/16/21 04/17/21 11:59 11:59 11:59 11:59 Intake Total 340 1161 360 Output Total 450 1850 600 Balance -110 -689 -240 Weight 54.1 kg 54.7 kg Lab Results: Lab Results-Last 24 Hours 04/16/21 Range/Units 10:15 25-OH Vitamin D Total 55.2 (30-100) ng/mL Radiology Exams: Radiology Procedures Category Date Time Status CHEST 1 VIEW (PORTABLE) Stat Exams 04/14/21 18:17 Completed Multi-Disciplinary Progress Notes: Multi-Disciplinary Progress Notes 04/16/21 09:06 Case Management Note by Justine Michelle ATTEMPTED TO DISCUSS DC PLANS WITH PATIENT AGAIN THIS AM- PATENT VERY TEARFUL WHEN ASKED AGAIN ABOUT HALFWAY OR HHC-SHE JUST KEPT SAYING "I DON'T KNOW". PATIENT GIVEN HHC LIST TO REVIEW AND DISCUSS WITH FAMILY. PRIMARY RN AWARE AND PLANS TO GIVE SOMETHING FOR ANXIETY. WILL TRY TO FOLLOW UP AGAIN LATER TODAY Initialized on 04/16/21 09:06 - END OF NOTE Assessment/Plan (1) COPD exacerbation Current Visit: Yes Status: Acute Assessment & Plan: reducing solumedrol Code(s): J44.1 - CHRONIC OBSTRUCTIVE PULMONARY DISEASE W (ACUTE) EXACERBATION (2) Anxiety Current Visit: Yes Status: Acute Code(s): F41.9 - ANXIETY DISORDER, UNSPECIFIED (3) Chest pain Current Visit: Yes Status: Resolved Code(s): R07.9 - CHEST PAIN, UNSPECIFIED (4) Depression Current Visit: Yes Status: Acute Assessment & Plan: is fearful and saddened by decline in health ,crying alot per staff.- start [id number] Code(s): F32.9 - MAJOR DEPRESSIVE DISORDER, SINGLE EPISODE, UNSPECIFIED (5) Weakness Current Visit: Yes Status: Chronic Assessment & Plan: worsening Code(s): R53.1 - WEAKNESS
[2021-04-17 01:41] LABS: ALBUMIN 4.1 g/dL (3.5-5.0); ALKALINE PHOSPHATASE 50 U/L (38-126); ANION GAP 16.9 MEQ/L (5-15); BLOOD UREA NITROGEN 21 mg/dL (7-17); CHLORIDE 102 mmol/L (98-107); Calcium 9.6 mg/dL (8.4-10.2); Carbon Dioxide 23 mmol/L (22-30); Creatinine 1 0.69 mg/dL (0.52-1.04); EST GLOMERULAR FILTRATION RATE > 60.0 ML/MIN; Glucose 129 mg/dL (74-106); Potassium 3.5 mmol/L (3.5-5.1); SGOT/AST 90 U/L (14-36); SGPT/ALT 26 U/L (0-35); SODIUM 139 mmol/L (137-145); TSH, 3RD Generation 0.064 mIU/L (0.47-4.68); Total Protein 6.5 g/dL (6.3-8.2)
[2021-04-17 01:42] LABS: Vitamin B12 > 1000 pg/mL (239-931)
[2021-04-17] MEDS: DUONEB 0.5-3 MG/3 ml Neb IH PRN ×2 (04:00→22:36)
[2021-04-17] MEDS: Ativan 2 MG/1 ML VIAL IV PRN ×3 (05:05→23:37)
[2021-04-17 05:08] LABS: Absolute Neutrophil Ct (ANC) 16.51 (1.4-6.9); Basophil (Absolute #) 0 (0-0.4); Eosinophil (Absolute #) 0 (0-0.5); Hematocrit 38.1 % (35-47); Hemoglobin 11.9 gm/dl (12.0-16.0); Lymphocyte (Absolute #) 0.78 (1.0-4.6); Lymphocytes % 4.4 % (24.0-44.0); Mean Cell Volume 101.9 fl (78-100); Mean Corpuscular Hemoglobin 31.8 pg (26-32); Mean Corpuscular Hgb Concent. 31.2 g/dl (32-36); Mean Platelet Volume 10.1 fl (7.5-11.0); Monocyte (Absolute #) 0.49 (0.0-1.3); Monocytes % 2.8 % (0.0-12.0); Neutrophil % 92.8 % (36.0-66.0); Platelet Count 428 K/mm3 (150-450); Red Blood Count 3.74 M/mm3 (4.1-5.4); Red Cell Distribution Width 13.6 % (11.5-14.0); White Blood Count 17.8 K/mm3 (4.0-10.5)
[2021-04-17 05:24] LABS: ALBUMIN 4.1 g/dL (3.5-5.0); ALKALINE PHOSPHATASE 58 U/L (38-126); ANION GAP 15.4 MEQ/L (5-15); BLOOD UREA NITROGEN 28 mg/dL (7-17); CHLORIDE 103 mmol/L (98-107); Calcium 9.3 mg/dL (8.4-10.2); Carbon Dioxide 24 mmol/L (22-30); Creatinine 1 0.73 mg/dL (0.52-1.04); EST GLOMERULAR FILTRATION RATE > 60.0 ML/MIN; Glucose 131 mg/dL (74-106); Potassium 3.9 mmol/L (3.5-5.1); SGOT/AST 43 U/L (14-36); SGPT/ALT 27 U/L (0-35); SODIUM 139 mmol/L (137-145); Total Protein 6.5 g/dL (6.3-8.2)
[2021-04-17] MEDS: solu-MEDROL 125 MG IV SCH ×3 (06:24→22:26)
[2021-04-17] MEDS: DUONEB 0.5-3 MG/3 ml Neb IH SCH ×4 (06:55→19:10)
[2021-04-17] MEDS: PATIENT OWN MEDICATION IH SCH ×2 (06:57→19:10)
[2021-04-17] MEDS: Robitussin-Dm Syrup PO PRN ×2 (09:59→16:18)
[2021-04-17] MEDS: Calcium 500MG W/Vit D Tablet PO SCH (10:00)
[2021-04-17] MEDS: PROZAC 10 MG PO SCH (10:00)
[2021-04-17] MEDS: Protonix 40MG Tablet PO SCH (10:00)
[2021-04-17] MEDS: ECOTRIN 81 MG PO SCH (10:00)
[2021-04-17] MEDS: Diflucan 100 MG PO SCH (10:00)
[2021-04-17] MEDS: PLAVIX 75 MG Tablet PO SCH (10:00)
[2021-04-17] MEDS: THERAGRAN MULTIVITAMIN PO SCH (10:00)
[2021-04-17] MEDS: Flonase NASAL NS SCH (10:02)
[2021-04-17] MEDS: Cardizem CD 120 MG PO SCH (10:02)
[2021-04-17] MEDS: DALIRESP PO SCH (10:03)
[2021-04-17] MEDS: Zestril 5 MG PO SCH (11:31)
--- NOTE | 2021-04-17 18:44 | PCM.NOTE ---
Date and Time: 04/17/211837 Subjective Assessment: Patient and her daughter are seeing that patient is weak and dyspnic with any out of bed activity and are open to Rehab at [facility] if insurance allows. Appetite is better. Is coughing more today and has started Robitussin DM. Objective Exam General Appearance: mild distress (teary) Neurologic Exam: alert, oriented x 3, cooperative Skin Exam: warm, dry, pale (improved more color in face today) Eye Exam: eyes nml inspection Respiratory Exam: diminished breath sounds, wheezing (fine eew upper ant lung) Extremity Exam: other (no edema) OBJECTIVE DATA Vital Signs: Vital Signs - 24 hr Temp Pulse Resp BP Pulse Ox 04/17/21 16:00 97.9 F 98 H 22 144/64 95 04/17/21 15:05 104 H 24 94 L 04/17/21 11:31 97.6 F 96 H 20 155/66 95 04/17/21 10:42 115 H 22 95 04/17/21 08:00 98.3 F 115 H 28 H 177/86 93 L 04/17/21 06:57 83 18 97 04/17/21 04:00 98.2 F 120 H 24 144/86 92 L 04/16/21 23:37 98.1 F 83 20 121/58 100 04/16/21 20:00 98.0 F 86 23 129/58 98 04/16/21 18:56 86 23 98 Oxygen-Last 24 hours Oxygen Flowrate (L/min)-RT 3 Pain Assessment - Last Documented Pain Intensity 4 Intake and Output: Intake & Output 04/15/21 04/16/21 04/17/21 04/18/21 11:59 11:59 11:59 11:59 Intake Total 340 1161 1220 250 Output Total 450 1850 1900 400 Balance -110 -689 -680 -150 Weight 54.1 kg 54.7 kg Lab Results: Lab Results-Last 24 Hours 04/16/21 04/17/21 04/17/21 Range/Units 10:15 04:54 04:54 WBC 17.8 H (4.0-10.5) K/mm3 RBC 3.74 L (4.1-5.4) M/mm3 Hgb 11.9 L (12.0-16.0) gm/dl Hct 38.1 (35-47) % MCV 101.9 H (78-100) fl MCH 31.8 (26-32) pg MCHC 31.2 L (32-36) g/dl RDW 13.6 (11.5-14.0) % Plt Count 428 (150-450) K/mm3 MPV 10.1 (7.5-11.0) fl Gran % 92.8 H (36.0-66.0) % Eos # (Auto) 0 (0-0.5) Absolute Lymphs (auto) 0.78 L (1.0-4.6) Absolute Monos (auto) 0.49 (0.0-1.3) Lymphocytes % 4.4 L (24.0-44.0) % Monocytes % 2.8 (0.0-12.0) % Eosinophils % 0.0 (0.00-5.0) % Basophils % 0.0 (0.0-0.4) % Absolute Granulocytes 16.51 H (1.4-6.9) Basophils # 0 (0-0.4) Sodium 139 139 (137-145) mmol/L Potassium 3.5 D 3.9 (3.5-5.1) mmol/L Chloride 102 103 (98-107) mmol/L Carbon Dioxide 23 24 (22-30) mmol/L Anion Gap 16.9 H 15.4 H (5-15) MEQ/L BUN 21 H 28 H (7-17) mg/dL Creatinine 0.69 0.73 (0.52-1.04) mg/dL Estimated GFR > 60.0 > 60.0 ML/MIN Glucose 129 H 131 H (74-106) mg/dL Calcium 9.6 9.3 (8.4-10.2) mg/dL Total Bilirubin 0.20 0.20 (0.2-1.3) mg/dL AST 90 H 43 H (14-36) U/L ALT 26 27 (0-35) U/L Alkaline Phosphatase 50 58 (38-126) U/L Serum Total Protein 6.5 6.5 (6.3-8.2) g/dL Albumin 4.1 4.1 (3.5-5.0) g/dL Vitamin B12 > 1000 H (239-931) pg/mL TSH 3rd Generation 0.064 L (0.47-4.68) mIU/L Multi-Disciplinary Progress Notes: Multi-Disciplinary Progress Notes 04/17/21 09:57 Respiratory Note by Shama Julio SPO2 4LPM AT REST 98%. DEC TO 3LPM Initialized on 04/17/21 09:57 - END OF NOTE 04/17/21 09:38 Case Management Note by Justine Michelle DISCHARGE PLANNING CONVERSATION DIFFICULT AGAIN THIS MORNING. PATIENT SEEMS TOO OVERWELMED WITH FEELING BAD TO MAKE ANY DECISIONS. PER JBEARDexter PATIENT AND FAMILY REFUSED NH PLACEMENT. DR. SOTO WANTS PATIENT TO HAVE HHC AT DC. SHE HAS A LIST OF PROVIDERS TO LOOK AND OVER AND DISCUSS WITH DAUGHTER. PATIENT CURRENTLY WEARS 3L/NC AT HOME-THIS MAY NEED ADJUSTED D/T OXYGEN REQUIREMENTS AT TIME OF DC Initialized on 04/17/21 09:38 - END OF NOTE Assessment/Plan (1) COPD exacerbation Current Visit: Yes Status: Acute Assessment & Plan: has tolerated decreased solumedrol. WBC elevated with left shift. will start Unisym. Code(s): J44.1 - CHRONIC OBSTRUCTIVE PULMONARY DISEASE W (ACUTE) EXACERBATION (2) Anxiety Current Visit: Yes Status: Acute Code(s): F41.9 - ANXIETY DISORDER, UNSPECIFIED (3) Chest pain Current Visit: Yes Status: Resolved Code(s): R07.9 - CHEST PAIN, UNSPECIFIED (4) Depression Current Visit: Yes Status: Acute Assessment & Plan: prozac started yesterday Code(s): F32.9 - MAJOR DEPRESSIVE DISORDER, SINGLE EPISODE, UNSPECIFIED (5) Weakness Current Visit: Yes Status: Chronic Assessment & Plan: PT started today patient very winded and desats when up to bathroom . RT is following Code(s): R53.1 - WEAKNESS
[2021-04-17] MEDS ORDERED: Unasyn 1.5GM Vial*** 1.5 G in Sodium Chloride 100ML MINI-BAG PLUS 100 ML IV PRN (19:00)
[2021-04-17] MEDS ORDERED: Sodium Chloride 0.9% 100 ML BAG 100 ML ONE (23:17)
[2021-04-17] MEDS ORDERED: Unasyn 1.5GM Vial ONE (23:17)
[2021-04-17] MEDS ORDERED: Unasyn 1.5GM Vial*** 1.5 G in Sodium Chloride 100ML MINI-BAG PLUS 100 ML IV SCH (23:30)
[2021-04-18] MEDS: DUONEB 0.5-3 MG/3 ml Neb IH SCH ×4 (05:00→19:12)
[2021-04-18] MEDS: PATIENT OWN MEDICATION IH SCH ×2 (05:30→19:13)
[2021-04-18 05:52] LABS: Hematocrit 35.8 % (35-47); Hemoglobin 11.1 gm/dl (12.0-16.0); Mean Corpuscular Hemoglobin 31.6 pg (26-32); Mean Platelet Volume 10.1 fl (7.5-11.0); Platelet Count 388 K/mm3 (150-450); Red Blood Count 3.51 M/mm3 (4.1-5.4); Red Cell Distribution Width 13.6 % (11.5-14.0); White Blood Count 14.1 K/mm3 (4.0-10.5)
[2021-04-18 06:25] LABS: ALBUMIN 3.8 g/dL (3.5-5.0); ALKALINE PHOSPHATASE 57 U/L (38-126); ANION GAP 11.3 MEQ/L (5-15); BLOOD UREA NITROGEN 30 mg/dL (7-17); CHLORIDE 102 mmol/L (98-107); Calcium 8.9 mg/dL (8.4-10.2); Carbon Dioxide 28 mmol/L (22-30); Creatinine 1 0.73 mg/dL (0.52-1.04); EST GLOMERULAR FILTRATION RATE > 60.0 ML/MIN; Glucose 120 mg/dL (74-106); Potassium 3.7 mmol/L (3.5-5.1); SGOT/AST 55 U/L (14-36); SGPT/ALT 33 U/L (0-35); SODIUM 138 mmol/L (137-145); Total Protein 6.1 g/dL (6.3-8.2)
[2021-04-18] MEDS: solu-MEDROL 125 MG IV SCH ×3 (06:48→21:18)
[2021-04-18] MEDS: Ativan 2 MG/1 ML VIAL IV PRN ×4 (07:39→21:18)
[2021-04-18] MEDS: Unasyn 1.5GM Vial*** 1.5 G in Sodium Chloride 100ML MINI-BAG PLUS 100 ML IV SCH ×3 (07:39→21:19)
[2021-04-18] MEDS: Robitussin-Dm Syrup PO PRN (08:27)
[2021-04-18] MEDS: PLAVIX 75 MG Tablet PO SCH (08:29)
[2021-04-18] MEDS: THERAGRAN MULTIVITAMIN PO SCH (08:29)
[2021-04-18] MEDS: ECOTRIN 81 MG PO SCH (08:29)
[2021-04-18] MEDS: Zestril 5 MG PO SCH (08:30)
[2021-04-18] MEDS: Cardizem CD 120 MG PO SCH (08:30)
[2021-04-18] MEDS: DALIRESP PO SCH (08:30)
[2021-04-18] MEDS: Calcium 500MG W/Vit D Tablet PO SCH (08:30)
[2021-04-18] MEDS: Protonix 40MG Tablet PO SCH (08:30)
[2021-04-18 08:32] LABS: Lymphocytes 7 % (24-44); Monocyte 4 % (0.0-12.0); Neutrophils 89 % (36.0-66.0); Platelet Estimate NORMAL (NORMAL); Total Cells Counted 100
[2021-04-18] MEDS: Flonase NASAL NS SCH (08:32)
[2021-04-18] MEDS: PROZAC 10 MG PO SCH (08:33)
[2021-04-18] MEDS: Diflucan 100 MG PO SCH (09:46)
[2021-04-18 12:44] LABS: A-aADO2 95; ABG HEMOGLOBIN 11.9; ABG POTASSIUM 3.4 (3.5-5.1); ARTERIAL BLD GAS O2 SATURATION 97.6 % (95-100); ARTERIAL BLOOD GAS BASE EXCESS 6.6 (-2.0-2.0); ARTERIAL BLOOD GAS FIO2 32 %; ARTERIAL BLOOD GAS PCO2 40 mmHg (35-45); ARTERIAL BLOOD GAS PO2 83 mmHg (75-100); ARTERIAL BLOOD GAS pH 7.49 (7.35-7.45); CARBOXYHEMOGLOBIN 0.6 % THgb (0.0-6.9); HCO3- 30.5 (22-28); HGB O2 SAT 96.6 g/dF (94-100); Methhemoglobin 0.4 % (1.4-1.5)
[2021-04-18 12:45] LABS: ABG SITE LEFT RADIAL; ALLEN TEST OK? YES
--- NOTE | 2021-04-18 14:15 | PCM.NOTE ---
Date and Time: 04/18/21 1415 Subjective Assessment: 70 yr old female seen and examined this am. Patient reports she is afraid she will not make it out of the hospital due to severity of illness. She reports her sputum yesterday was clear but today is yellow in color. She reports persistent cough. She is still short of breath. No other reported concerns at this time. - Review of Systems Constitutional: Weakness, No Fever Eyes: No Symptoms Ears, Nose, & Throat: No Symptoms Respiratory: Cough, Short Of Breath, Wheezing Cardiac: No Chest Pain, No Edema Abdominal/Gastrointestinal: No Abdominal Pain, No Nausea, No Vomiting, No Diarrhea, No Constipation Genitourinary Symptoms: No Symptoms Musculoskeletal: No Symptoms Skin: No Symptoms Neurological: No Headache Psychological: Anxiety, Depression, No Alcohol Abuse, No Drug Abuse Objective Exam General Appearance: moderate distress, alert, anxiety, thin Neurologic Exam: alert, oriented x 3, cooperative, depressed mood/affect, No normal mood/affect, No disoriented, No confusion, No agitation Skin Exam: normal color, warm, dry, No rash Eye Exam: eyes nml inspection, No scleral icterus Ears, Nose, Throat Exam: moist mucous membranes Neck Exam: normal inspection Respiratory Exam: respiratory distress, diminished breath sounds, accessory muscle use, prolonged expirations, wheezing, No normal breath sounds, No lungs clear, No crackles/rales, No rhonchi Cardiovascular Exam: regular rate/rhythm, normal heart sounds, No murmur, No friction rub, No gallop Gastrointestinal/Abdomen Exam: soft, normal bowel sounds, No tenderness, No distention, No mass, No guarding, No rebound Extremity Exam: normal inspection, No pedal edema, No swelling Back Exam: normal inspection Pelvic Exam: deferred Rectal Exam: deferred OBJECTIVE DATA Vital Signs: Vital Signs - 24 hr Temp Pulse Resp BP Pulse Ox 04/18/21 12:00 97.9 F 88 26 H 174/72 97 04/18/21 08:00 97.9 F 97 H 24 189/99 94 L 04/18/21 05:00 84 26 H 97 04/18/21 04:00 97.8 F 84 16 142/62 97 04/18/21 00:00 97.9 F 93 H 21 150/67 95 04/17/21 22:36 109 H 28 H 96 04/17/21 20:00 97.9 F 93 H 20 144/66 94 L 04/17/21 19:10 85 21 95 04/17/21 16:00 97.9 F 98 H 22 144/64 95 04/17/21 15:05 104 H 24 94 L Oxygen-Last 24 hours Oxygen Flowrate (L/min)-RT 3 Oxygen Flowrate (L/min)-RT 3 Pain Assessment - Last Documented Pain Intensity 0 Intake and Output: Intake & Output 04/16/21 04/17/21 04/18/21 04/19/21 11:59 11:59 11:59 11:59 Intake Total 1161 1220 890 120 Output Total 1850 1900 1250 450 Balance -051 -165 -986 -139 Weight 54.7 kg 53.2 kg Lab Results: Lab Results-Last 24 Hours 04/18/21 04/18/21 04/18/21 Range/Units 05:30 05:30 10:50 WBC 14.1 H (4.0-10.5) K/mm3 RBC 3.51 L (4.1-5.4) M/mm3 Hgb 11.1 L (12.0-16.0) gm/dl Hct 35.8 (35-47) % MCV 102.0 H (78-100) fl MCH 31.6 (26-32) pg MCHC 31.0 L (32-36) g/dl RDW 13.6 (11.5-14.0) % Plt Count 388 (150-450) K/mm3 MPV 10.1 (7.5-11.0) fl Segmented Neutrophils 89 H (36.0-66.0) % Lymphocytes (Manual) 7 L (24-44) % Monocytes (Manual) 4 (0.0-12.0) % Platelet Estimate NORMAL (NORMAL) RBC Morphology NORMAL Puncture Site LEFT RADIAL pCO2 40 (35-45) mmHg pO2 83 (75-100) mmHg Base Excess 6.6 H (-2.0-2.0) O2 Saturation 96.6 (94-100) g/dF ABG pH 7.49 H (7.35-7.45) ABG HCO3 30.5 H* (22-28) ABG O2 Sat (Measured) 97.6 (95-100) % Dennys Test YES A-a Gradient 95 a/A Ratio 0.47 Hemoglobin 11.9 Carboxyhemoglobin 0.6 (0.0-6.9) % THgb Methemoglobin 0.4 L (1.4-1.5) % Temperature 37.0 C POC O2 Flow Rate 32 % Sodium 138 (137-145) mmol/L Potassium 3.7 3.4 L (3.5-5.1) mmol/L Chloride 102 (98-107) mmol/L Carbon Dioxide 28 (22-30) mmol/L Anion Gap 11.3 (5-15) MEQ/L BUN 30 H (7-17) mg/dL Creatinine 0.73 (0.52-1.04) mg/dL Estimated GFR > 60.0 ML/MIN Glucose 120 H (74-106) mg/dL Calcium 8.9 (8.4-10.2) mg/dL Total Bilirubin 0.20 (0.2-1.3) mg/dL AST 55 H (14-36) U/L ALT 33 (0-35) U/L Alkaline Phosphatase 57 (38-126) U/L Serum Total Protein 6.1 L (6.3-8.2) g/dL Albumin 3.8 (3.5-5.0) g/dL Radiology Exams: Radiology Procedures Category Date Time Status CHEST 2 VIEWS (PA AND LAT) Routine Exams 04/18/21 11:00 Taken Assessment/Plan (1) Acute hypoxemic respiratory failure Current Visit: Yes Status: Acute Assessment & Plan: Patient is working hard to breath. She is on oxygen therapy. Will get blood gas and cxr. Will address as needed. Code(s): J96.01 - ACUTE RESPIRATORY FAILURE WITH HYPOXIA (2) COPD exacerbation Current Visit: Yes Status: Acute Assessment & Plan: Patient is on steroids duonebs and antibiotics. Antibiotics were adjusted recently and WBC has trended down. Patient is doing flutter therapy. Patient still has wheeze and decreased breath sounds. She is also on cough medication. Code(s): J44.1 - CHRONIC OBSTRUCTIVE PULMONARY DISEASE W (ACUTE) EXACERBATION (3) Anxiety Current Visit: Yes Status: Acute Assessment & Plan: Patient is requiring prn xanax due to her anxiety. Code(s): F41.9 - ANXIETY DISORDER, UNSPECIFIED (4) Depression Current Visit: Yes Status: Acute Assessment & Plan: Patient is on medication for depression. This does not appear to be helping patient. She was teary eyed and fearful today that she will not leave the hospital alive. Code(s): F32.9 - MAJOR DEPRESSIVE DISORDER, SINGLE EPISODE, UNSPECIFIED (5) Hypertension Current Visit: Yes Status: Acute Assessment & Plan: continue on routine home meds Code(s): I10 - ESSENTIAL (PRIMARY) HYPERTENSION (6) Weakness Current Visit: Yes Status: Chronic Assessment & Plan: Patient is supposed to be going to rehab. She is likely deconditioned and will need to therapy for improved strength. Code(s): R53.1 - WEAKNESS
--- NOTE | 2021-04-18 20:02 | XRAY ---
Indication: COPD. Comparison: April 14, 2021. PA/lateral chest unchanged again demonstrating COPD, right mid lung subsegmental atelectasis/scarring, and left lung calcified granulomas. Heart not enlarged. No new/acute findings.
[2021-04-19] MEDS: DUONEB 0.5-3 MG/3 ml Neb IH PRN (04:06)
[2021-04-19 05:28] LABS: Hematocrit 36.1 % (35-47); Hemoglobin 11.1 gm/dl (12.0-16.0); Mean Cell Volume 102.3 fl (78-100); Mean Corpuscular Hemoglobin 31.4 pg (26-32); Mean Corpuscular Hgb Concent. 30.7 g/dl (32-36); Mean Platelet Volume 10.1 fl (7.5-11.0); Platelet Count 348 K/mm3 (150-450); Red Blood Count 3.53 M/mm3 (4.1-5.4); Red Cell Distribution Width 13.6 % (11.5-14.0)
[2021-04-19 05:44] LABS: ALBUMIN 3.5 g/dL (3.5-5.0); ALKALINE PHOSPHATASE 51 U/L (38-126); ANION GAP 9.8 MEQ/L (5-15); BLOOD UREA NITROGEN 26 mg/dL (7-17); CHLORIDE 103 mmol/L (98-107); Calcium 8.4 mg/dL (8.4-10.2); Carbon Dioxide 30 mmol/L (22-30); Creatinine 1 0.69 mg/dL (0.52-1.04); EST GLOMERULAR FILTRATION RATE > 60.0 ML/MIN; Glucose 127 mg/dL (74-106); Potassium 3.8 mmol/L (3.5-5.1); SGOT/AST 58 U/L (14-36); SGPT/ALT 41 U/L (0-35); SODIUM 140 mmol/L (137-145); Total Protein 5.8 g/dL (6.3-8.2)
[2021-04-19] MEDS: solu-MEDROL 125 MG IV SCH ×3 (05:56→21:33)
[2021-04-19 05:57] LABS: Lymphocytes 8 % (24-44); Monocyte 4 % (0.0-12.0); Neutrophils 88 % (36.0-66.0); Platelet Estimate NORMAL (NORMAL); Total Cells Counted 100
[2021-04-19] MEDS: Unasyn 1.5GM Vial*** 1.5 G in Sodium Chloride 100ML MINI-BAG PLUS 100 ML IV SCH ×3 (05:57→21:34)
[2021-04-19] MEDS ORDERED: Fosamax 70 MG PO SCH (06:00)
[2021-04-19] MEDS: Robitussin-Dm Syrup PO PRN (06:29)
[2021-04-19] MEDS: DUONEB 0.5-3 MG/3 ml Neb IH SCH ×4 (07:16→19:24)
[2021-04-19] MEDS: PATIENT OWN MEDICATION IH SCH ×2 (07:18→19:25)
[2021-04-19] MEDS: DALIRESP PO SCH (09:09)
[2021-04-19] MEDS: PLAVIX 75 MG Tablet PO SCH (09:12)
[2021-04-19] MEDS: Diflucan 100 MG PO SCH (09:12)
[2021-04-19] MEDS: Zestril 5 MG PO SCH (09:12)
[2021-04-19] MEDS: Protonix 40MG Tablet PO SCH (09:13)
[2021-04-19] MEDS: THERAGRAN MULTIVITAMIN PO SCH (09:13)
[2021-04-19] MEDS: Calcium 500MG W/Vit D Tablet PO SCH (09:13)
[2021-04-19] MEDS: Cardizem CD 120 MG PO SCH (09:13)
[2021-04-19] MEDS: Flonase NASAL NS SCH (09:13)
[2021-04-19] MEDS: ECOTRIN 81 MG PO SCH (09:13)
[2021-04-19] MEDS: PROZAC 10 MG PO SCH (09:14)
[2021-04-19] MEDS: Ativan 2 MG/1 ML VIAL IV PRN ×2 (09:25→14:10)
[2021-04-19] MEDS: Mucomyst 200 MG/ML IH SCH ×2 (11:00→19:25)
--- NOTE | 2021-04-19 13:11 | PCM.NOTE ---
Date and Time: 04/19/21 1309 Subjective Assessment: 70 yr old female seen and examined this am. Patient reports she is doing the same as yesterday. She reports continued productive cough. She denies chest pain but pain following cough. No other reported concerns at this time. - Review of Systems Constitutional: Weakness, No Fever Eyes: No Symptoms Ears, Nose, & Throat: No Symptoms Respiratory: Cough, Short Of Breath, Wheezing Cardiac: Chest Pain (after coughing), No Edema, No Palpitations Abdominal/Gastrointestinal: No Abdominal Pain, No Nausea, No Vomiting, No Diarrhea, No Constipation Genitourinary Symptoms: No Symptoms Musculoskeletal: No Symptoms Skin: No Symptoms Neurological: No Headache Psychological: Anxiety, Depression (Patient has been tearful ), No Alcohol Abuse, No Drug Abuse Endocrine: No Symptoms Objective Exam General Appearance: moderate distress, alert, anxiety, thin Neurologic Exam: alert, oriented x 3, cooperative, depressed mood/affect, No normal mood/affect, No disoriented, No confusion, No agitation Skin Exam: normal color, warm, dry, No rash Eye Exam: eyes nml inspection, No scleral icterus Ears, Nose, Throat Exam: moist mucous membranes Neck Exam: normal inspection Respiratory Exam: respiratory distress, diminished breath sounds, accessory muscle use, prolonged expirations, wheezing, No normal breath sounds, No lungs clear, No crackles/rales Cardiovascular Exam: regular rate/rhythm, normal heart sounds, No murmur, No friction rub, No gallop, No edema Gastrointestinal/Abdomen Exam: soft, normal bowel sounds, No tenderness, No distention, No mass, No guarding, No rebound Extremity Exam: normal inspection, No pedal edema, No swelling, No tenderness Pelvic Exam: deferred Rectal Exam: deferred OBJECTIVE DATA Vital Signs: Vital Signs - 24 hr Temp Pulse Resp BP Pulse Ox 04/19/21 11:07 84 18 98 04/19/21 09:35 97 04/19/21 07:29 98.2 F 83 16 151/69 96 04/19/21 07:19 83 24 96 04/19/21 04:06 107 H 21 91 L 04/19/21 03:44 97.9 F 74 22 162/69 96 04/19/21 00:00 21 95 04/18/21 20:00 97.7 F 89 22 149/69 95 04/18/21 19:12 84 20 98 04/18/21 16:00 98.1 F 101 H 32 H 171/76 93 L 04/18/21 15:14 84 20 95 Pain Assessment - Last Documented Pain Intensity 0 Intake and Output: Intake & Output 04/17/21 04/18/21 04/19/21 04/20/21 11:59 11:59 11:59 11:59 Intake Total 0379 877 3364 Output Total 1900 1250 1200 Balance -680 -360 -80 Weight 53.2 kg Lab Results: Lab Results-Last 24 Hours 04/19/21 04/19/21 Range/Units 05:22 05:22 WBC 11.0 H (4.0-10.5) K/mm3 RBC 3.53 L (4.1-5.4) M/mm3 Hgb 11.1 L (12.0-16.0) gm/dl Hct 36.1 (35-47) % MCV 102.3 H (78-100) fl MCH 31.4 (26-32) pg MCHC 30.7 L (32-36) g/dl RDW 13.6 (11.5-14.0) % Plt Count 348 (150-450) K/mm3 MPV 10.1 (7.5-11.0) fl Segmented Neutrophils 88 H (36.0-66.0) % Lymphocytes (Manual) 8 L (24-44) % Monocytes (Manual) 4 (0.0-12.0) % Platelet Estimate NORMAL (NORMAL) RBC Morphology NORMAL Sodium 140 (137-145) mmol/L Potassium 3.8 (3.5-5.1) mmol/L Chloride 103 (98-107) mmol/L Carbon Dioxide 30 (22-30) mmol/L Anion Gap 9.8 (5-15) MEQ/L BUN 26 H (7-17) mg/dL Creatinine 0.69 (0.52-1.04) mg/dL Estimated GFR > 60.0 ML/MIN Glucose 127 H (74-106) mg/dL Calcium 8.4 (8.4-10.2) mg/dL Total Bilirubin 0.30 (0.2-1.3) mg/dL AST 58 H (14-36) U/L ALT 41 H (0-35) U/L Alkaline Phosphatase 51 (38-126) U/L Serum Total Protein 5.8 L (6.3-8.2) g/dL Albumin 3.5 (3.5-5.0) g/dL Radiology Exams: Radiology Procedures Category Date Time Status CHEST 2 VIEWS (PA AND LAT) Routine Exams 04/18/21 11:00 Completed Multi-Disciplinary Progress Notes: Multi-Disciplinary Progress Notes 04/19/21 09:35 (created 04/19/21 10:26) Respiratory Note by Tammy Lei PT PLACED ON HIGH FLOW 40LPM W/ 32% OXYGEN DUE TO SOB/LABORED BREATHING PER DR. AMIN VERBAL ORDER. PT TOLERATING HIGH FLOW WELL. O2 SAT 97%, HR 97, RR 18. Initialized on 04/19/21 10:26 - END OF NOTE Assessment/Plan (1) Acute hypoxemic respiratory failure Current Visit: Yes Status: Acute Assessment & Plan: Patient has been tachypneic and continues to require continuous oxygen. Patient will not wear bipap. She is currently tolerating humidified high flow oxygen and is doing well with that. She is having panic attacks worried she will not leave the hospital due to her illness Code(s): J96.01 - ACUTE RESPIRATORY FAILURE WITH HYPOXIA (2) COPD exacerbation Current Visit: Yes Status: Acute Assessment & Plan: Patient is on duonebs steroids and antibiotics. Patient recently had antibiotics switched. WBC has trended down and continues to trend down. Mucomyst has been added. Will also add incentive spirometry. Patient has flutter therapy ordered. Will add singular as well. Code(s): J44.1 - CHRONIC OBSTRUCTIVE PULMONARY DISEASE W (ACUTE) EXACERBATION (3) Anxiety Current Visit: Yes Status: Acute Assessment & Plan: Patient has prn xanax and is on duloxetine. The duloxetine does not appear to be helping and she may need to start therapy as well due to worsening anxiety and depression related to her illness. Code(s): F41.9 - ANXIETY DISORDER, UNSPECIFIED (4) Depression Current Visit: Yes Status: Acute Assessment & Plan: Same as above Code(s): F32.9 - MAJOR DEPRESSIVE DISORDER, SINGLE EPISODE, UNSPECIFIED
[2021-04-19] MEDS: Singulair 10 MG PO SCH (17:08)
[2021-04-20] MEDS: Ativan 2 MG/1 ML VIAL IV PRN ×3 (02:52→15:37)
[2021-04-20] MEDS: solu-MEDROL 125 MG IV SCH ×2 (05:38→14:56)
[2021-04-20] MEDS: Unasyn 1.5GM Vial*** 1.5 G in Sodium Chloride 100ML MINI-BAG PLUS 100 ML IV SCH ×2 (05:38→14:55)
[2021-04-20] MEDS: DUONEB 0.5-3 MG/3 ml Neb IH SCH ×3 (06:45→15:15)
[2021-04-20] MEDS: PATIENT OWN MEDICATION IH SCH ×2 (06:47→07:00)
[2021-04-20] MEDS: Mucomyst 200 MG/ML IH SCH (06:48)
[2021-04-20] MEDS: Calcium 500MG W/Vit D Tablet PO SCH (11:18)
[2021-04-20] MEDS: Protonix 40MG Tablet PO SCH (11:18)
[2021-04-20] MEDS: THERAGRAN MULTIVITAMIN PO SCH (11:18)
[2021-04-20] MEDS: Diflucan 100 MG PO SCH (11:18)
[2021-04-20] MEDS: Cardizem CD 120 MG PO SCH (11:18)
[2021-04-20] MEDS: ECOTRIN 81 MG PO SCH (11:18)
[2021-04-20] MEDS: Zestril 5 MG PO SCH (11:19)
[2021-04-20] MEDS: PLAVIX 75 MG Tablet PO SCH (11:19)
[2021-04-20] MEDS: Singulair 10 MG PO SCH (11:19)
[2021-04-20] MEDS: DALIRESP PO SCH (11:20)
[2021-04-20] MEDS: PROZAC 10 MG PO SCH (11:20)
[2021-04-20] MEDS: Robitussin-Dm Syrup PO PRN (11:29)
[2021-04-20 11:39] VITALS: BP 182/86
--- NOTE | 2021-04-20 14:19 | PCM.DCORD ---
- Discharge Disposition: DC TO [facility] Condition: Fair Prescriptions: No Action Budesonide/Formoterol Fumarate [Symbicort 160-4.5 Mcg Inhaler] 6 gm IH BID Ipratropium/Albuterol Sulfate [Iprat-Albut 0.5-3(2.5) mg/3 ml] 3 ml NEB BID Aspirin 81 mg PO DAILY lisinopriL [Lisinopril] 5 mg PO DAILY Albuterol Sulfate Mdi [Proair Hfa MDI] 2 puff IH BID PRN Omeprazole 40 mg PO DAILY #30 capsule. Multivitamin [Multivitamins] 1 each PO DAILY Clopidogrel Bisulfate 75 mg [PLAVIX 75 MG Tablet] 75 mg PO DAILY Diltiazem HCl [Diltiazem ER] 120 mg PO DAILY Umeclidinium [place] [Incruse Ellipta] 62.5 mcg IH DAILY Roflumilast [Daliresp] 250 mcg PO DAILY Fluticasone Propionate [Flonase NASAL] 1 each NS DAILY Alendronate Sodium 70 mg [Fosamax 70 MG] 70 mg PO Q7D@0600 Calcium Carbonate/Vitamin D3 [Calcium 600 mg-D3 20 Mcg Tab] 1 each PO DAILY Follow up with: MONICA SOTO DO [Primary Care Provider] -
[2021-04-20 15:18] VITALS: PULSE 94; O2SAT 97
== END 2021-04-20 16:05 | disposition home or self-care (01) ==
LOC: ED 18:06 → MED SURG 23:45
PROVIDERS: ADMIT Family Medicine; ATTEND Family Medicine
DX: J44.1 Chronic obstructive pulmonary disease with (acute) exacerbation (principal); F41.9 Anxiety disorder, unspecified; Z79.899 Other long term (current) drug therapy; I10 Essential (primary) hypertension; R07.9 Chest pain, unspecified; F32.9 Major depressive disorder, single episode, unspecified; R53.1 Weakness; J96.01 Acute respiratory failure with hypoxia; Z20.828 Contact with and (suspected) exposure to other viral communicable diseases
CPT/HCPCS: 36000; 36415; 36600; 51702; 71045; 71046; 80053; 81001; 82306; 82375; 82607; 82803; 83735; 84443; 84484; 85025; 85027; 87070; 93005; 93041; 94002; 94640; 94667; 94760; 96374; 96375; 97161; 97165; 97530; 99285; 99291; U0003; 93268; J0295; J0696; J2060; J2930; A9270-GY; G0378

== ENCOUNTER 2021-05-18 11:05 | Emergency (ER) | payer MEDICARE ==
[2021-05-18 11:47] LABS: Appearance SLIGHTLY CLOUDY (CLEAR); Bacteria RARE /HPF (NEGATIVE); Bilirubin NEGATIVE (NEGATIVE); Blood SMALL Ery/ul (0-5); Glucose NEGATIVE (NEGATIVE); Ketones NEGATIVE (NEGATIVE); Leukocyte Esterase LARGE (NEGATIVE); Nitrite NEGATIVE (NEGATIVE); Protein,Urine Dip NEGATIVE (Negative); RBC 0-2 /HPF (0-2); Specific Gravity 1.003 (1.005-1.025); Urobilinogen NEGATIVE mg/dL (0-1); WBC 51-100 /HPF (0-5)
--- NOTE | 2021-05-18 12:05 | ERPHSYRPT ---
- History of Present Illness Time Seen by Provider: 05/18/21 11:20 Exam Limitations: no limitations Patient Subjective Stated Complaint: pt reports redness to the conjunctiva of the bilat eyes, daughter present is concerned about pt taking a blood thinner and having bleeding, pt also reports burning with urination that her PCP is aware of and has outpatient orders. Triage Nursing Assessment: pt is aox3, pt presents with home O2 at 3L, pt conjunctiva red bilat, left greater than the right, no visual difficulty, pt radial pulses strong and equal, cap refill < 3 seconds, pt skin with diffuse bruising throughout. pt abd soft non tender. Physician History: Patient is a 70-year-old female presents to our ED because of "redness" to her left eye. Daughter concerned that patient is on blood thinners. Patient is on Plavix patient also complains of urinary symptomology. Dysuria and urgency. She has a pressure sensation in her suprapubic region. Patient was discharged approximately 2 weeks ago. Patient states during her hospitalization she had a indwelling Alexander catheter. Patient believes this may have caused a urinary tract infection. Patient otherwise asymptomatic. Patient's functioning at her baseline. No nausea no vomiting no diarrhea no rash. No fever. No back pain. No headache. No trauma. No fever. No blurred vision. No numbness tingling or weakness. No chest pain or shortness of breath. Patient voices no other complaints at this time. Timing/Duration: today Severity: mild Modifying Factors: Improves With: nothing Associated Symptoms: denies symptoms Allergies/Adverse Reactions: clarithromycin [From Biaxin] Allergy (Intermediate, Verified 05/18/21 11:28) constipation cephalexin monohydrate [From Keflex] Adverse Reaction (Mild, Verified 05/18/21 11:28) constipation Home Medications: Aspirin 81 mg PO DAILY 03/09/16 [History] Budesonide/Formoterol Fumarate [Symbicort 160-4.5 Mcg Inhaler] 6 gm IH BID 03/09/16 [History] Ipratropium/Albuterol Sulfate [Iprat-Albut 0.5-3(2.5) mg/3 ml] 3 ml NEB BID 03/09/16 [History] Albuterol Sulfate Mdi [Proair Hfa MDI] 2 puff IH BID PRN 12/24/18 [History] lisinopriL [Lisinopril] 5 mg PO DAILY 12/24/18 [History] Multivitamin [Multivitamins] 1 each PO DAILY 05/21/19 [History] Clopidogrel Bisulfate 75 mg [PLAVIX 75 MG Tablet] 75 mg PO DAILY 04/14/21 [History] Diltiazem HCl [Diltiazem ER] 120 mg PO DAILY 04/14/21 [History] Umeclidinium [place] [Incruse Ellipta] 62.5 mcg IH DAILY 04/14/21 [History] Alendronate Sodium 70 mg [Fosamax 70 MG] 70 mg PO Q7D@0600 04/15/21 [History] Calcium Carbonate/Vitamin D3 [Calcium 600 mg-D3 20 Mcg Tab] 1 each PO DAILY 04/15/21 [History] Fluticasone Propionate [Flonase NASAL] 1 each NS DAILY 04/15/21 [History] Roflumilast [Daliresp] 250 mcg PO DAILY 04/15/21 [History] Hx Tetanus, Diphtheria Vaccination/Date Given: No Hx Influenza Vaccination/Date Given: Yes Hx Pneumococcal Vaccination/Date Given: Yes Immunizations Up to Date: Yes Travel Risk - International Travel Have you traveled outside of the country in past 3 weeks: No - Coronavirus Screening Are you exhibiting any of the following symptoms?: No Close contact with a COVID-19 positive Pt in past 14-21 Days: No - Vaccine Status Have you recieved a Covid-19 vaccination: No - Review of Systems Constitutional: No Symptoms, No Fever, No Chills Eyes: No Symptoms Ears, Nose, & Throat: No Symptoms Respiratory: No Symptoms, No Cough, No Dyspnea Cardiac: No Symptoms, No Chest Pain, No Edema, No Syncope Abdominal/Gastrointestinal: No Symptoms, No Abdominal Pain, No Nausea, No Vomiting, No Diarrhea Genitourinary Symptoms: No Symptoms, No Dysuria Musculoskeletal: No Symptoms, No Back Pain, No Neck Pain Skin: No Symptoms, No Rash Neurological: No Symptoms, No Dizziness, No Focal Weakness, No Sensory Changes Psychological: No Symptoms Endocrine: No Symptoms Hematologic/Lymphatic: No Symptoms All Other Systems: Reviewed and Negative - Past Medical History Pertinent Past Medical History: Yes Neurological History: No Pertinent History ENT History: Cataracts Cardiac History: Hypertension Respiratory History: Asthma, COPD Endocrine Medical History: No Pertinent History Musculoskeletal History: Arthritis GI Medical History: GERD History: No Pertinent History Psycho-Social History: No Pertinent History Female Reproductive Disorders: No Pertinent History - Past Surgical History Past Surgical History: Yes Neuro Surgical History: No Pertinent History Cardiac: No Pertinent History Respiratory: No Pertinent History Gastrointestinal: Cholecystectomy Genitourinary: No Pertinent History Musculoskeletal: Orthopedic Surgery Female Surgical History: Section, Tubal Ligation Other Surgical History: Thumb surgery. 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 No hyphema. No proptosis. No eye pain. No change in vision. No nausea or vomiting. no Eye pain) Ears, Nose, Throat Exam: normal ENT inspection, TMs normal, pharynx normal, moist mucous membranes Neck Exam: normal inspection, non-tender, supple, full range of motion Respiratory Exam: normal breath sounds, lungs clear, other (Oxygen nasal cannula intact. Patient requires oxygen at home.), No respiratory distress Cardiovascular Exam: regular rate/rhythm, normal heart sounds, normal peripheral pulses Gastrointestinal/Abdomen Exam: soft, normal bowel sounds, No tenderness, No mass Back Exam: normal inspection, normal range of motion, No CVA tenderness, No vertebral tenderness Extremity Exam: normal inspection, normal range of motion, pelvis stable Neurologic Exam: alert, oriented x 3, cooperative, normal mood/affect, nml cerebellar function, nml station & gait, sensation nml, No motor deficits Skin Exam: normal color, warm, dry, No rash Lymphatic Exam: No adenopathy SpO2 Interpretation: normal SpO2: 96 O2 Delivery: Room Air - Course Nursing assessment & vital signs reviewed: Yes Ordered Tests: Active Orders 24 hr Category Date Time Status CULTURE,URINE Stat Lab 05/18/21 11:35 Received UA W/RFX UR CULTURE Stat Lab 05/18/21 11:35 Completed Lab/Rad Data: Laboratory Results 05/18/21 Range/Units 11:35 Urine Color STRAW (YELLOW) Urine Appearance SLIGHTLY CLOUDY (CLEAR) Urine pH 7.0 (5-6) Ur Specific [place] 1.003 (1.005-1.025) Urine Protein NEGATIVE (Negative) Urine Ketones NEGATIVE (NEGATIVE) Urine Blood SMALL (0-5) Armando/ul Urine Nitrite NEGATIVE (NEGATIVE) Urine Bilirubin NEGATIVE (NEGATIVE) Urine Urobilinogen NEGATIVE (0-1) mg/dL Ur Leukocyte Esterase LARGE (NEGATIVE) Urine WBC (Auto) 51-100 (0-5) /HPF Urine RBC (Auto) 0-2 (0-2) /HPF U Epithel Cells (Auto) NONE (FEW) /HPF Urine Bacteria (Auto) RARE (NEGATIVE) /HPF Urine Culture Reflexed YES (NO) Urine Glucose NEGATIVE (NEGATIVE) mg/dL - Progress Progress: improved Progress Note: Work-up reveals a urinary tract infection. Patient has subconjunctival hemorrhage. No indication for work-up or treatment of the subconjunctival hemorrhage. A prescription for Macrobid forwarded to patient's pharmacy patient will take her prescription up today and start taking it as recommended. Patient agrees to follow-up with her primary care doctor within 48 hours for evaluation. She voices no other complaints or concerns at this time. 05/18/21 12:05 Counseled pt/family regarding: diagnosis, need for follow-up, rad results - Departure Departure Disposition: Home Clinical Impression: UTI (urinary tract infection), Subconjunctival hemorrhage of both eyes Condition: Stable Critical Care Time: No Referrals: MONICA SOTO DO [Primary Care Provider] - Additional Instructions: Discharge/Care Plan SOCODOMENICO LANGFORD was seen on 05/18/21 in the Emergency Room. The patient was counseled regarding Diagnosis,Lab results, Imaging studies, need for follow up and when to return to the Emergency Room. Prescriptions given: Discharge Note I have spoken with the patient and/or caregivers. I have explained the patient's condition, diagnosis and treatment plan based on the information available to me at this time. I have answered the patient's and/or caregiver's questions and addressed any concerns. The patient and/or caregivers have as good understanding of the patient's diagnosis, condition and treatment plan as can be expected at this point. The vital signs have been stable. The patient's condition is stable and appropriate for discharge from the emergency department. The patient will pursue further outpatient evaluation with the primary care physician or other designated or consulting physician as outlined in the discharge instructions. The patient and/or caregivers are agreeable to this plan of care and follow-up instructions have been explained in detail. The patient and/or caregivers have received these instruction. The patient/and or caregivers are aware that any significant change in condition or worsening of symptoms should prompt an immediate return to this or the closest emergency department or call 911. Prescriptions: Nitrofurantoin Macro 100 mg [Macrobid 100MG Capsule] 100 mg PO BID 7 Days #14 capsule
[2021-05-18 12:35] VITALS: BP 145/77; PULSE 79; O2SAT 97
== END 2021-05-18 12:32 | disposition home or self-care (01) ==
LOC: ED 11:05
DX: H11.33 Conjunctival hemorrhage, bilateral (principal); N39.0 Urinary tract infection, site not specified; Z79.899 Other long term (current) drug therapy; Z79.01 Long term (current) use of anticoagulants
CPT/HCPCS: 36415; 80053; 81001; 83880; 84439; 84443; 85025; 86376; 86800; 87077; 87086; 87186; 99283

== ENCOUNTER 2021-06-20 09:31 | Emergency (ER) | payer MEDICARE ==
[2021-06-20] MEDS ORDERED: solu-MEDROL 125 MG, Sterile H2O 10 ml 2 ML IV ONE ×2 (09:53)
[2021-06-20] MEDS ORDERED: DUONEB 0.5-3 MG/3 ml Neb IH ONE ×2 (09:53→10:11)
--- NOTE | 2021-06-20 09:58 | ERPHSYRPT ---
- History of Present Illness Time Seen by Provider: 06/20/21 09:45 Source: patient Exam Limitations: no limitations Patient Subjective Stated Complaint: cough, SOB x 4 days Triage Nursing Assessment: pt to ED c/o cough and SOB x 4 days approx. pt lives with her daughter and son in law, who was dx with bronchitis this week. pt was originally coming to hospital to have out pt cxr done per Dr Phillips but when she arrived today there was no order found. Pt, and rest of the home, was COVID tested recently and was negative per daughter. Physician History: 71 years old female with history of hypertension, hyperlipidemia, coronary artery disease status post stenting, chronic respiratory failure from COPD on 3 L oxygen, frequent pneumonia/bronchitis finished course of amoxicillin 3 days ago presented in the ER with increasing cough productive of yellow-green sputum copious in amount with wheezing all over despite using routine nebs and inhalers. Patient called her primary care and was recommended to get chest x-ra y done to rule out bronchitis as she has a positive contact with someone in the family with bronchitis, on arrival in the hospital patient was found that she does not have any standing order and she checked in for evaluation. She is currently on 3 L, satting around 98% with low audible wheezing. No fever or chills reported. Denies any chest pain. Patient reports shortness of breath at her baseline which is not much worse than usual but cough is what bothering her more than anything. Timing/Duration: week(s), constant, gradual onset, worse Activities at Onset: activity Severity of Dyspnea-Max: moderate Severity of Dyspnea-Current: moderate Possible Cause: frequent episodes Modifying Factors: Improves With: albuterol nebulizer, oxygen. Worsens With: coughing, exertion Associated Symptoms: cough, wheezing, productive cough, tightness, No fever Allergies/Adverse Reactions: clarithromycin [From Biaxin] Allergy (Intermediate, Verified 06/20/21 09:53) constipation cephalexin monohydrate [From Keflex] Adverse Reaction (Mild, Verified 06/20/21 09:53) constipation Home Medications: Aspirin 81 mg PO DAILY 03/09/16 [History] Budesonide/Formoterol Fumarate [Symbicort 160-4.5 Mcg Inhaler] 6 gm IH BID 03/09/16 [History] Ipratropium/Albuterol Sulfate [Iprat-Albut 0.5-3(2.5) mg/3 ml] 3 ml NEB BID 03/09/16 [History] Albuterol Sulfate Mdi [Proair Hfa MDI] 2 puff IH BID PRN 12/24/18 [History] lisinopriL [Lisinopril] 5 mg PO DAILY 12/24/18 [History] Multivitamin [Multivitamins] 1 each PO DAILY 05/21/19 [History] Clopidogrel Bisulfate 75 mg [PLAVIX 75 MG Tablet] 75 mg PO DAILY 04/14/21 [History] Diltiazem HCl [Diltiazem ER] 120 mg PO DAILY 04/14/21 [History] Umeclidinium [place] [Incruse Ellipta] 62.5 mcg IH DAILY 04/14/21 [History] Alendronate Sodium 70 mg [Fosamax 70 MG] 70 mg PO Q7D@0600 04/15/21 [History] Calcium Carbonate/Vitamin D3 [Calcium 600 mg-D3 20 Mcg Tab] 1 each PO DAILY 04/15/21 [History] Fluticasone Propionate [Flonase NASAL] 1 each NS DAILY 04/15/21 [History] Roflumilast [Daliresp] 250 mcg PO DAILY 04/15/21 [History] Hx Tetanus, Diphtheria Vaccination/Date Given: No Hx Influenza Vaccination/Date Given: Yes Hx Pneumococcal Vaccination/Date Given: Yes Immunizations Up to Date: Yes Travel Risk - International Travel Have you traveled outside of the country in past 3 weeks: No - Coronavirus Screening Are you exhibiting any of the following symptoms?: Yes Symptoms: Cough: New Onset, Shortness of Breath Close contact with a COVID-19 positive Pt in past 14-21 Days: No - Vaccine Status Have you recieved a Covid-19 vaccination: No - Review of Systems Constitutional: Chills, Weakness Eyes: No Symptoms Ears, Nose, & Throat: Sinus Drainage Respiratory: Cough, Dyspnea, Dyspnea on Exertion (WILSON), Wheezing Cardiac: Edema Abdominal/Gastrointestinal: No Symptoms Genitourinary Symptoms: No Symptoms Musculoskeletal: Myalgias Skin: No Symptoms Neurological: No Symptoms Psychological: No Symptoms Endocrine: No Symptoms Hematologic/Lymphatic: No Symptoms Immunological/Allergic: No Symptoms - Past Medical History Pertinent Past Medical History: Yes Neurological History: No Pertinent History ENT History: Cataracts Cardiac History: Hypertension Respiratory History: Asthma, COPD Endocrine Medical History: No Pertinent History Musculoskeletal History: Arthritis GI Medical History: GERD History: No Pertinent History Psycho-Social History: No Pertinent History Female Reproductive Disorders: No Pertinent History - Past Surgical History Past Surgical History: Yes Neuro Surgical History: No Pertinent History Cardiac: No Pertinent History Respiratory: No Pertinent History Gastrointestinal: Cholecystectomy Genitourinary: No Pertinent History Musculoskeletal: Orthopedic Surgery Female Surgical History: Section, Tubal Ligation Other Surgical History: Thumb surgery. 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 - Social History Smoking Status: Former smoker Exposure to second hand smoke: No Drug Use: none Patient Lives Alone: No - Nursing Vital Signs Nursing Vital Signs: Initial Vital Signs Temperature 97.7 F 06/20/21 09:42 Pulse Rate 85 06/20/21 09:42 Respiratory Rate 26 H 06/20/21 09:42 Blood Pressure 147/89 06/20/21 09:42 O2 Sat by Pulse Oximetry 98 06/20/21 09:42 Pain Scale Pain Intensity 0 - Physical Exam General Appearance: no apparent distress, alert, anxiety Eye Exam: PERRL/EOMI, eyes nml inspection Ears, Nose, Throat Exam: hearing grossly normal, pharyngeal erythema Neck Exam: normal inspection, non-tender, supple, full range of motion Respiratory Exam: diminished breath sounds, rhonchi, wheezing, No respiratory distress Cardiovascular/Chest Exam: normal heart sounds, regular rate/rhythm Abdominal/Gastrointestinal Exam: soft, normal bowel sounds Extremity Exam: non-tender, normal range of motion Neurologic Exam: alert, oriented x 3, cooperative Skin Exam: normal color SpO2 Interpretation: normal SpO2: 98 O2 Delivery: Nasal Cannula - Course EKG Interpreted by Me: RATE (80), Sinus Rhythm, NORMAL AXIS, NORMAL INTERVALS, Non-specific ST Changes Ordered Tests: Active Orders 24 hr Category Date Time Status EKG-ER Only STAT Care 06/20/21 09:53 Active IV Insertion STAT Care 06/20/21 09:53 Active Oxygen-ED Only Nasal Cannula 3 lpm Care 06/20/21 09:53 Active CHEST 1 VIEW (PORTABLE) Stat Exams 06/20/21 09:46 Taken BLOOD CULTURE Stat Lab 06/20/21 10:13 Received CBC W DIFF Stat Lab 06/20/21 10:00 Completed CMP Stat Lab 06/20/21 10:00 Completed Lactic Acid Stat Lab 06/20/21 09:45 Completed MAGNESIUM Stat Lab 06/20/21 10:00 Completed Manual Differential NC Stat Lab 06/20/21 10:00 Completed TROPONIN Q3H Lab 06/20/21 11:50 Completed TROPONIN Q3H Lab 06/20/21 14:15 Ordered TROPONIN Q3H Lab 06/20/21 17:15 Ordered TROPONIN Q3H Lab 06/20/21 20:15 Ordered TROPONIN Q3H Lab 06/20/21 23:15 Ordered Respiratory Therapy Assessment DAILY RT 06/20/21 10:32 Completed Medication Summary Discontinued Medications Generic Name Dose Route Start Last Admin Trade Name Freq PRN Reason Stop Dose Admin Hydrocodone Bitart/Acetaminophen 10 ml 06/20/21 11:33 06/20/21 11:35 Hydrocodone-Acetamin 2.5-108/5 Ml Solution PO 06/20/21 11:34 10 ml STAT STA Administration Hydrocodone Bitart/Acetaminophen Confirm 06/20/21 11:35 Hydrocodone-Acetamin 2.5-108/5 Ml Solution Administered 06/20/21 11:36 Dose 10 ml .ROUTE .STK-MED ONE Albuterol/Ipratropium 3 ml 06/20/21 09:53 06/20/21 10:32 Duoneb 0.5-3 Mg/3 Ml Neb IH 06/20/21 09:54 3 ml STAT ONE Administration Albuterol/Ipratropium Confirm 06/20/21 10:11 Duoneb 0.5-3 Mg/3 Ml Neb Administered 06/20/21 10:12 Dose 3 ml IH .STK-MED ONE Methylprednisolone Sodium 0 mg 06/20/21 09:53 06/20/21 10:04 Succinate 125 mg/ Sterile IV 06/20/21 09:54 125 mg Water 2 ml STAT ONE Administration Levofloxacin 500 mg 06/20/21 11:14 06/20/21 11:16 Levofloxacin 250mg Tablet PO 06/20/21 11:15 500 mg STAT ONE Administration Levofloxacin Confirm 06/20/21 11:15 Levofloxacin 250mg Tablet Administered 06/20/21 11:16 Dose 500 mg .ROUTE .STK-MED ONE Methylprednisolone Sodium Succinate Confirm 06/20/21 10:02 Solu-Medrol Administered 06/20/21 10:03 Dose 125 mg .ROUTE .STK-MED ONE Sterile Water Confirm 06/20/21 10:02 Sterile H2o 10 Ml Administered 06/20/21 10:03 Dose 10 ml IJ .STK-MED ONE Lab/Rad Data: Laboratory Result Diagrams 06/20/21 10:00 06/20/21 10:00 Laboratory Results 06/20/21 06/20/21 06/20/21 Range/Units 11:50 10:00 10:00 WBC 10.5 (4.0-10.5) K/mm3 RBC 3.83 L (4.1-5.4) M/mm3 Hgb 11.8 L (12.0-16.0) gm/dl Hct 39.3 (35-47) % MCV 102.6 H (78-100) fl MCH 30.8 (26-32) pg MCHC 30.0 L (32-36) g/dl RDW 14.8 H (11.5-14.0) % Plt Count 327 (150-450) K/mm3 MPV 9.5 (7.5-11.0) fl Segmented Neutrophils 58 (36.0-66.0) % Band Neutrophils 1 (0.0-2.0) % Lymphocytes (Manual) 35 (24-44) % Monocytes (Manual) 4 (0.0-12.0) % Eosinophils (Manual) 2 (0.00-3.0) % Platelet Estimate NORMAL (NORMAL) RBC Morphology NORMAL Sodium 140 (137-145) mmol/L Potassium 3.6 (3.5-5.1) mmol/L Chloride 102 (98-107) mmol/L Carbon Dioxide 28 (22-30) mmol/L Anion Gap 13.4 (5-15) MEQ/L BUN 16 (7-17) mg/dL Creatinine 0.69 (0.52-1.04) mg/dL Estimated GFR > 60.0 ML/MIN Glucose 91 (74-106) mg/dL Lactic Acid (0.4-2.0) Calcium 9.1 (8.4-10.2) mg/dL Magnesium 2.0 (1.6-2.3) mg/dL Total Bilirubin 0.50 (0.2-1.3) mg/dL AST 32 (14-36) U/L ALT 25 (0-35) U/L Alkaline Phosphatase 57 (38-126) U/L Troponin I < 0.012 (0.000-0.034) ng/mL Serum Total Protein 6.8 (6.3-8.2) g/dL Albumin 4.2 (3.5-5.0) g/dL 06/20/21 Range/Units 09:45 WBC (4.0-10.5) K/mm3 RBC (4.1-5.4) M/mm3 Hgb (12.0-16.0) gm/dl Hct (35-47) % MCV (78-100) fl MCH (26-32) pg MCHC (32-36) g/dl RDW (11.5-14.0) % Plt Count (150-450) K/mm3 MPV (7.5-11.0) fl Segmented Neutrophils (36.0-66.0) % Band Neutrophils (0.0-2.0) % Lymphocytes (Manual) (24-44) % Monocytes (Manual) (0.0-12.0) % Eosinophils (Manual) (0.00-3.0) % Platelet Estimate (NORMAL) RBC Morphology Sodium (137-145) mmol/L Potassium (3.5-5.1) mmol/L Chloride (98-107) mmol/L Carbon Dioxide (22-30) mmol/L Anion Gap (5-15) MEQ/L BUN (7-17) mg/dL Creatinine (0.52-1.04) mg/dL Estimated GFR ML/MIN Glucose (74-106) mg/dL Lactic Acid 1.6 (0.4-2.0) Calcium (8.4-10.2) mg/dL Magnesium (1.6-2.3) mg/dL Total Bilirubin (0.2-1.3) mg/dL AST (14-36) U/L ALT (0-35) U/L Alkaline Phosphatase (38-126) U/L Troponin I (0.000-0.034) ng/mL Serum Total Protein (6.3-8.2) g/dL Albumin (3.5-5.0) g/dL - Progress Progress: improved Air Movement: fair Progress Note: 06/20/21 12:25 Patient was wheezing on presentation bilaterally, maintaining oxygen saturation very well in upper 90s without any obvious distress, given DuoNeb and steroids reevaluation her wheezing is much better. Chest x-ray reviewed by me did not appreciate any new infiltrative process but has old changes. Has normal white count, grossly unremarkable chemistries and troponins are negative. EKG no acute left elevation patient's breathing was at her baseline I believe patient is having some COPD bronchitis and given dose of Levaquin orally here and will continue to go home. Daughter who lives with patient does not think patient has any change in her breathing and is more willing to take her home. She does have a nebulizer which she is advised to every 6 hour and outpatient follow-up discussed signs symptoms of worsening needing return to ER which he seems understanding. Blood Culture(s) Obtained: Yes Antibiotics given: Yes Counseled pt/family regarding: lab results, diagnosis, need for follow-up, rad results - Departure Departure Disposition: Home Clinical Impression: COPD with acute bronchitis Condition: Stable Critical Care Time: No Referrals: MONICA SOTO DO [Primary Care Provider] - (2-3 days for reevaluation) Instructions: Chronic Obstructive Pulmonary Disease, Cough, Adult (DC) Additional Instructions: Continue with your inhaler at home. Follow-up with primary care for reevaluation. Return to ER for fever chills, worsening cough or develop shortness of breath/chest pain etc. Prescriptions: Levofloxacin [Levaquin 500 MG Tablet] 500 mg PO DAILY #7 tablet
[2021-06-20] MEDS ORDERED: Sterile H2O 10 ml IJ ONE (10:02)
[2021-06-20] MEDS ORDERED: solu-MEDROL ONE (10:02)
[2021-06-20 10:18] LABS: Hematocrit 39.3 % (35-47); Hemoglobin 11.8 gm/dl (12.0-16.0); Mean Cell Volume 102.6 fl (78-100); Mean Corpuscular Hemoglobin 30.8 pg (26-32); Mean Platelet Volume 9.5 fl (7.5-11.0); Platelet Count 327 K/mm3 (150-450); Red Blood Count 3.83 M/mm3 (4.1-5.4); Red Cell Distribution Width 14.8 % (11.5-14.0); White Blood Count 10.5 K/mm3 (4.0-10.5)
[2021-06-20 10:27] LABS: ALBUMIN 4.2 g/dL (3.5-5.0); ALKALINE PHOSPHATASE 57 U/L (38-126); ANION GAP 13.4 MEQ/L (5-15); BLOOD UREA NITROGEN 16 mg/dL (7-17); CHLORIDE 102 mmol/L (98-107); Calcium 9.1 mg/dL (8.4-10.2); Carbon Dioxide 28 mmol/L (22-30); Creatinine 1 0.69 mg/dL (0.52-1.04); EST GLOMERULAR FILTRATION RATE > 60.0 ML/MIN; Glucose 91 mg/dL (74-106); Potassium 3.6 mmol/L (3.5-5.1); SGOT/AST 32 U/L (14-36); SGPT/ALT 25 U/L (0-35); SODIUM 140 mmol/L (137-145); Total Protein 6.8 g/dL (6.3-8.2)
[2021-06-20 11:07] LABS: BAND 1 % (0.0-2.0); Eosinophil 2 % (0.00-3.0); Lymphocytes 35 % (24-44); Monocyte 4 % (0.0-12.0); Neutrophils 58 % (36.0-66.0); Platelet Estimate NORMAL (NORMAL); Total Cells Counted 100
[2021-06-20] MEDS ORDERED: Levofloxacin 250MG Tablet PO ONE (11:14)
[2021-06-20] MEDS ORDERED: Levofloxacin 250MG Tablet ONE (11:15)
[2021-06-20] MEDS ORDERED: HYDROCODONE-ACETAMIN 2.5-108/5 ML SOLUTION PO STA (11:33)
[2021-06-20] MEDS ORDERED: HYDROCODONE-ACETAMIN 2.5-108/5 ML SOLUTION ONE (11:35)
[2021-06-20 12:41] VITALS: BP 142/76; PULSE 92; O2SAT 96
--- NOTE | 2021-06-20 19:46 | XRAY ---
Indication: Cough. Comparison: April 18, 2021. Portable chest unchanged again demonstrating COPD, right mid lung subsegmental atelectasis/scarring, and left lung calcified granulomas. Heart not enlarged. No new/acute findings.
== END 2021-06-20 12:55 | disposition home or self-care (01) ==
LOC: ED 09:31
DX: J44.0 Chronic obstructive pulmonary disease with (acute) lower respiratory infection (principal); Z79.899 Other long term (current) drug therapy; I10 Essential (primary) hypertension; E78.5 Hyperlipidemia, unspecified; I25.810 Atherosclerosis of coronary artery bypass graft(s) without angina pectoris
CPT/HCPCS: 36000; 36415; 71045; 80053; 83605; 83735; 84484; 85025; 87040; 93005; 94640; 96374; 99284; J2930; A9270-GY

== ENCOUNTER 2021-08-18 16:10 | Emergency (ER) | payer MEDICARE ==
--- NOTE | 2021-08-18 16:48 | ERPHSYRPT ---
- History of Present Illness Time Seen by Provider: 08/18/21 16:20 Source: patient Physician History: Patient is a 71-year-old female presents to our ED for evaluation of COPD exacerbation. Patient's primary care doctor is Dr. Rodrigues. Dr. Rodrigues called our ED informed us that patient is experiencing what appears to be a significant COPD exacerbation. Patient states she has a history of asthma and COPD. Patient has been hospitalized with COPD in the past. Patient states she has been short of breath for 1 day. Symptoms have been progressive. Patient requires 3 L of nasal cannula 24 hours/day. Patient has also had a cough which is productive with sputum. 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 Patient denies chest pain. No nausea vomiting or diaphoresis. No abdominal pain. Patient voices no other complaints or concerns at this time. Timing/Duration: yesterday Activities at Onset: none Severity of Dyspnea-Max: moderate Possible Cause: occasional episodes Modifying Factors: Improves With: activity Associated Symptoms: cough, productive cough, No fever, No ankle swelling, No l ightheadedness, No painful breathing Allergies/Adverse Reactions: clarithromycin [From Biaxin] Allergy (Intermediate, Verified 07/17/21 15:18) constipation cephalexin monohydrate [From Keflex] Adverse Reaction (Mild, Verified 07/17/21 15:18) constipation Home Medications: Aspirin 81 mg PO DAILY 03/09/16 [History] Budesonide/Formoterol Fumarate [Symbicort 160-4.5 Mcg Inhaler] 6 gm IH BID 03/09/16 [History] Ipratropium/Albuterol Sulfate [Iprat-Albut 0.5-3(2.5) mg/3 ml] 3 ml NEB BID 03/09/16 [History] Albuterol Sulfate Mdi [Proair Hfa MDI] 2 puff IH BID PRN 12/24/18 [History] lisinopriL [Lisinopril] 5 mg PO DAILY 12/24/18 [History] Multivitamin [Multivitamins] 1 each PO DAILY 05/21/19 [History] Clopidogrel Bisulfate 75 mg [PLAVIX 75 MG Tablet] 75 mg PO DAILY 04/14/21 [History] Diltiazem HCl [Diltiazem ER] 180 mg PO DAILY 04/14/21 [History] Umeclidinium [place] [Incruse Ellipta] 62.5 mcg IH DAILY 04/14/21 [History] Alendronate Sodium 70 mg [Fosamax 70 MG] 70 mg PO Q7D@0600 04/15/21 [History] Calcium Carbonate/Vitamin D3 [Calcium 600 mg-D3 20 Mcg Tab] 1 each PO DAILY 04/15/21 [History] Fluticasone Propionate [Flonase NASAL] 1 each NS DAILY 04/15/21 [History] Roflumilast [Daliresp] 250 mcg PO DAILY 04/15/21 [History] predniSONE [Prednisone] 20 mg PO DAILY 07/17/21 [History] Hx Tetanus, Diphtheria Vaccination/Date Given: No Hx Influenza Vaccination/Date Given: Yes Hx Pneumococcal Vaccination/Date Given: Yes Travel Risk - Vaccine Status Have you recieved a Covid-19 vaccination: No - Review of Systems Constitutional: No Symptoms, No Fever, No Chills Eyes: No Symptoms Ears, Nose, & Throat: No Symptoms Respiratory: No Symptoms, No Cough, No Dyspnea Cardiac: No Symptoms, No Chest Pain, No Edema, No Syncope Abdominal/Gastrointestinal: No Symptoms, No Abdominal Pain, No Nausea, No V omiting, No Diarrhea Genitourinary Symptoms: No Symptoms, No Dysuria Musculoskeletal: No Symptoms, No Back Pain, No Neck Pain Skin: No Symptoms, No Rash Neurological: No Symptoms, No Dizziness, No Focal Weakness, No Sensory Changes Psychological: No Symptoms Endocrine: No Symptoms Hematologic/Lymphatic: No Symptoms Immunological/Allergic: No Symptoms All Other Systems: Reviewed and Negative - Past Medical History Pertinent Past Medical History: Yes Neurological History: No Pertinent History ENT History: Cataracts Cardiac History: Hypertension Respiratory History: Asthma, COPD Endocrine Medical History: No Pertinent History Musculoskeletal History: Arthritis GI Medical History: GERD History: No Pertinent History Psycho-Social History: No Pertinent History Female Reproductive Disorders: No Pertinent History - Past Surgical History Past Surgical History: Yes Neuro Surgical History: No Pertinent History Cardiac: No Pertinent History Respiratory: No Pertinent History Gastrointestinal: Cholecystectomy Genitourinary: No Pertinent History Musculoskeletal: Orthopedic Surgery Female Surgical History: Section, Tubal Ligation Other Surgical History: Thumb surgery. 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 - Social History Smoking Status: Former smoker Exposure to second hand smoke: No Drug Use: none Patient Lives Alone: No - Nursing Vital Signs Nursing Vital Signs: Initial Vital Signs Temperature 97.9 F 08/18/21 16:11 Pulse Rate 95 H 08/18/21 16:11 Respiratory Rate 22 08/18/21 16:11 Blood Pressure 127/78 08/18/21 16:11 O2 Sat by Pulse Oximetry 93 L 08/18/21 16:11 Pain Scale Pain Intensity 0 - Physical Exam General Appearance: no apparent distress, alert Eye Exam: PERRL/EOMI Ears, Nose, Throat Exam: hearing grossly normal, normal ENT inspection, normal pharynx Neck Exam: normal inspection, supple, full range of motion Respiratory Exam: airway intact, diminished breath sounds, other Cardiovascular/Chest Exam: normal heart sounds, regular rate/rhythm, normal peripheral pulses Abdominal/Gastrointestinal Exam: soft, No tenderness, No distention, No mass Extremity Exam: non-tender, normal range of motion, normal inspection, no calf tenderness, no pedal edema Neurologic Exam: alert, oriented x 3, cooperative, lens polisher hand II-XII nml as tested, sensation nml, No motor deficits Skin Exam: normal color, warm, No dry Lymphatic Exam: adenopathy SpO2 Interpretation: normal SpO2: 93 O2 Delivery: Nasal Cannula - Course Nursing assessment & vital signs reviewed: Yes EKG Interpreted by Me: RATE (101), Sinus Tach, NORMAL AXIS, NORMAL INTERVALS - Radiology Exams Chest X-ray Interpretation: Interpreted by me (COPD changes, left lung granuloma. No cardiomegaly. No new acute findings.) Ordered Tests: Active Orders 24 hr Category Date Time Status STAT Care 08/18/21 16:49 Completed EKG-ER Only STAT Care 08/18/21 16:48 Completed IV Insertion STAT Care 08/18/21 16:48 Completed Pulse Oximetry (ED) STAT Care 08/18/21 16:48 Completed CHEST 1 VIEW (PORTABLE) Stat Exams 08/18/21 16:48 Taken BLOOD CULTURE Stat Lab 08/18/21 17:12 Received CBC W DIFF Stat Lab 08/18/21 17:12 Completed CBC W DIFF Stat Lab 08/19/21 06:50 Received CMP Stat Lab 08/18/21 17:12 Completed CMP Stat Lab 08/19/21 06:50 Received INFLUENZA A+B PORFIRIO Stat Lab 08/18/21 17:00 Completed MAGNESIUM Stat Lab 08/18/21 17:12 Completed NT PRO BNP Stat Lab 08/18/21 17:12 Completed TROPONIN Q3H Lab 08/18/21 17:12 Completed TROPONIN Q3H Lab 08/18/21 20:39 Completed TROPONIN Q3H Lab 08/18/21 23:40 Completed TROPONIN Q3H Lab 08/19/21 02:46 Completed TROPONIN Q3H Lab 08/19/21 05:25 Completed Respiratory Therapy Assessment DAILY RT 08/18/21 17:13 Active Medication Summary Discontinued Medications Generic Name Dose Route Start Last Admin Trade Name Freq PRN Reason Stop Dose Admin Albuterol/Ipratropium 3 ml 08/18/21 16:49 08/18/21 17:00 Duoneb 0.5-3 Mg/3 Ml Neb IH 08/18/21 16:50 3 ml STAT ONE Administration Albuterol/Ipratropium Confirm 08/18/21 16:58 Duoneb 0.5-3 Mg/3 Ml Neb Administered 08/18/21 16:59 Dose 3 ml IH .STK-MED ONE Albuterol/Ipratropium 3 ml 08/18/21 21:34 08/18/21 21:56 Duoneb 0.5-3 Mg/3 Ml Neb IH 08/18/21 21:35 3 ml STAT ONE Administration Albuterol/Ipratropium Confirm 08/18/21 21:40 Duoneb 0.5-3 Mg/3 Ml Neb Administered 08/18/21 21:41 Dose 3 ml IH .STK-MED ONE Albuterol/Ipratropium 3 ml 08/19/21 06:15 08/19/21 06:26 Duoneb 0.5-3 Mg/3 Ml Neb IH 08/19/21 06:16 3 ml STAT ONE Administration Albuterol/Ipratropium Confirm 08/19/21 06:24 Duoneb 0.5-3 Mg/3 Ml Neb Administered 08/19/21 06:25 Dose 3 ml IH .STK-MED ONE Methylprednisolone Sodium 0 mg 08/18/21 16:49 08/18/21 16:57 Succinate 125 mg/ Sterile IV 08/18/21 16:50 125 mg Water 2 ml STAT ONE Administration Ceftriaxone Sodium/Dextrose 1 g in 50 mls @ 100 mls/hr 08/18/21 21:21 08/19/21 06:53 Rocephin 1 Gm-D5w 50 Ml Bag IV 08/18/21 21:50 Infused STAT STA Infusion Ceftriaxone Sodium/Dextrose Confirm 08/18/21 21:25 Rocephin 1 Gm-D5w 50 Ml Bag Administered 08/18/21 21:26 Dose 1 g in 50 mls @ ud IV .STK-MED ONE Methylprednisolone Sodium Succinate Confirm 08/18/21 16:53 Solu-Medrol Administered 08/18/21 16:54 Dose 125 mg .ROUTE .STK-MED ONE Methylprednisolone Sodium Succinate 40 mg 08/19/21 06:35 Solu-Medrol 40 Mg IV 08/19/21 06:36 STAT ONE Methylprednisolone Sodium Succinate Confirm 08/19/21 06:41 Solu-Medrol Administered 08/19/21 06:42 Dose 125 mg .ROUTE .STK-MED ONE Sterile Water Confirm 08/18/21 16:53 Sterile H2o 10 Ml Administered 08/18/21 16:54 Dose 10 ml IJ .STK-MED ONE Sterile Water Confirm 08/19/21 06:42 Sterile H2o 10 Ml Administered 08/19/21 06:43 Dose 10 ml IJ .STK-MED ONE Lab/Rad Data: Laboratory Result Diagrams 08/18/21 17:12 08/18/21 17:12 Laboratory Results 08/19/21 08/19/21 08/18/21 Range/Units 05:25 02:46 23:40 WBC (4.0-10.5) K/mm3 RBC (4.1-5.4) M/mm3 Hgb (12.0-16.0) gm/dl Hct (35-47) % MCV (78-100) fl MCH (26-32) pg MCHC (32-36) g/dl RDW (11.5-14.0) % Plt Count (150-450) K/mm3 MPV (7.5-11.0) fl Gran % (36.0-66.0) % Eos # (Auto) (0-0.5) Absolute Lymphs (auto) (1.0-4.6) Absolute Monos (auto) (0.0-1.3) Lymphocytes % (24.0-44.0) % Monocytes % (0.0-12.0) % Eosinophils % (0.00-5.0) % Basophils % (0.0-0.4) % Absolute Granulocytes (1.4-6.9) Basophils # (0-0.4) Sodium (137-145) mmol/L Potassium (3.5-5.1) mmol/L Chloride (98-107) mmol/L Carbon Dioxide (22-30) mmol/L Anion Gap (5-15) MEQ/L BUN (7-17) mg/dL Creatinine (0.52-1.04) mg/dL Estimated GFR ML/MIN Glucose (74-106) mg/dL Calcium (8.4-10.2) mg/dL Magnesium (1.6-2.3) mg/dL Total Bilirubin (0.2-1.3) mg/dL AST (14-36) U/L ALT (0-35) U/L Alkaline Phosphatase (38-126) U/L Troponin I < 0.012 < 0.012 < 0.012 (0.000-0.034) ng/mL NT-Pro-B Natriuret Pep (0-900) pg/mL Serum Total Protein (6.3-8.2) g/dL Albumin (3.5-5.0) g/dL Influenza Type A Ag (NEGATIVE) Influenza Type B Ag (NEGATIVE) 08/18/21 08/18/21 08/18/21 Range/Units 20:39 17:12 17:12 WBC (4.0-10.5) K/mm3 RBC (4.1-5.4) M/mm3 Hgb (12.0-16.0) gm/dl Hct (35-47) % MCV (78-100) fl MCH (26-32) pg MCHC (32-36) g/dl RDW (11.5-14.0) % Plt Count (150-450) K/mm3 MPV (7.5-11.0) fl Gran % (36.0-66.0) % Eos # (Auto) (0-0.5) Absolute Lymphs (auto) (1.0-4.6) Absolute Monos (auto) (0.0-1.3) Lymphocytes % (24.0-44.0) % Monocytes % (0.0-12.0) % Eosinophils % (0.00-5.0) % Basophils % (0.0-0.4) % Absolute Granulocytes (1.4-6.9) Basophils # (0-0.4) Sodium 135 L (137-145) mmol/L Potassium 3.9 (3.5-5.1) mmol/L Chloride 99 (98-107) mmol/L Carbon Dioxide 26 (22-30) mmol/L Anion Gap 14.7 (5-15) MEQ/L BUN 16 (7-17) mg/dL Creatinine 0.77 (0.52-1.04) mg/dL Estimated GFR > 60.0 ML/MIN Glucose 122 H (74-106) mg/dL Calcium 9.4 (8.4-10.2) mg/dL Magnesium 1.8 (1.6-2.3) mg/dL Total Bilirubin 0.50 (0.2-1.3) mg/dL AST 55 H (14-36) U/L ALT 70 H (0-35) U/L Alkaline Phosphatase 78 (38-126) U/L Troponin I < 0.012 < 0.012 (0.000-0.034) ng/mL NT-Pro-B Natriuret Pep 78.4 (0-900) pg/mL Serum Total Protein 6.7 (6.3-8.2) g/dL Albumin 4.1 (3.5-5.0) g/dL Influenza Type A Ag (NEGATIVE) Influenza Type B Ag (NEGATIVE) 08/18/21 08/18/21 Range/Units 17:12 17:00 WBC 13.2 H (4.0-10.5) K/mm3 RBC 4.22 (4.1-5.4) M/mm3 Hgb 13.4 (12.0-16.0) gm/dl Hct 42.7 (35-47) % MCV 101.2 H (78-100) fl MCH 31.8 (26-32) pg MCHC 31.4 L (32-36) g/dl RDW 14.9 H (11.5-14.0) % Plt Count 252 (150-450) K/mm3 MPV 9.6 (7.5-11.0) fl Gran % 86.0 H (36.0-66.0) % Eos # (Auto) 0 (0-0.5) Absolute Lymphs (auto) 0.89 L (1.0-4.6) Absolute Monos (auto) 0.95 (0.0-1.3) Lymphocytes % 6.7 L (24.0-44.0) % Monocytes % 7.2 (0.0-12.0) % Eosinophils % 0.0 (0.00-5.0) % Basophils % 0.1 (0.0-0.4) % Absolute Granulocytes 11.38 H (1.4-6.9) Basophils # 0.01 (0-0.4) Sodium (137-145) mmol/L Potassium (3.5-5.1) mmol/L Chloride (98-107) mmol/L Carbon Dioxide (22-30) mmol/L Anion Gap (5-15) MEQ/L BUN (7-17) mg/dL Creatinine (0.52-1.04) mg/dL Estimated GFR ML/MIN Glucose (74-106) mg/dL Calcium (8.4-10.2) mg/dL Magnesium (1.6-2.3) mg/dL Total Bilirubin (0.2-1.3) mg/dL AST (14-36) U/L ALT (0-35) U/L Alkaline Phosphatase (38-126) U/L Troponin I (0.000-0.034) ng/mL NT-Pro-B Natriuret Pep (0-900) pg/mL Serum Total Protein (6.3-8.2) g/dL Albumin (3.5-5.0) g/dL Influenza Type A Ag NEGATIVE (NEGATIVE) Influenza Type B Ag NEGATIVE (NEGATIVE) - Progress Progress: improved Air Movement: fair Progress Note: Patient reassessed. She feels much better. Dr. Rodrigues requesting transfer to [facility]. I spoke to hospitalist Dr. SIFUENTES who accepts transfer. However [facility] has no beds immediately available. We are awaiting a bed assignment. 08/18/21 18:55 08/19/21 07:12 Transfer pending. Patient endorsed to Dr. Huertas at change of shift. AM labs pending. Patient has a UTI per urinalysis performed just prior to her arrival to our ED. Rocephin administered. 08/19/21 07:13 Blood Culture(s) Obtained: Yes Antibiotics given: Yes Discussed with : Flo Will see patient in: other Counseled pt/family regarding: lab results, diagnosis, need for follow-up, rad results - Departure Departure Disposition: Transfer Clinical Impression: COPD exacerbation, UTI (urinary tract infection) Condition: Stable Critical Care Time: No Referrals: MONICA SOTO DO [Primary Care Provider] - Instructions: Chronic Obstructive Pulmonary Disease
[2021-08-18] MEDS ORDERED: DUONEB 0.5-3 MG/3 ml Neb IH ONE ×4 (16:49→21:40)
[2021-08-18] MEDS ORDERED: solu-MEDROL 125 MG, Sterile H2O 10 ml 2 ML IV ONE ×2 (16:49)
[2021-08-18] MEDS ORDERED: Sterile H2O 10 ml IJ ONE (16:53)
[2021-08-18] MEDS ORDERED: solu-MEDROL ONE (16:53)
[2021-08-18 17:29] LABS: Absolute Neutrophil Ct (ANC) 11.38 (1.4-6.9); BASOPHIL % 0.1 % (0.0-0.4); Basophil (Absolute #) 0.01 (0-0.4); Eosinophil (Absolute #) 0 (0-0.5); Hematocrit 42.7 % (35-47); Hemoglobin 13.4 gm/dl (12.0-16.0); Lymphocyte (Absolute #) 0.89 (1.0-4.6); Lymphocytes % 6.7 % (24.0-44.0); Mean Cell Volume 101.2 fl (78-100); Mean Corpuscular Hemoglobin 31.8 pg (26-32); Mean Corpuscular Hgb Concent. 31.4 g/dl (32-36); Mean Platelet Volume 9.6 fl (7.5-11.0); Monocyte (Absolute #) 0.95 (0.0-1.3); Monocytes % 7.2 % (0.0-12.0); Platelet Count 252 K/mm3 (150-450); Red Blood Count 4.22 M/mm3 (4.1-5.4); Red Cell Distribution Width 14.9 % (11.5-14.0); White Blood Count 13.2 K/mm3 (4.0-10.5)
[2021-08-18 18:25] LABS: ALBUMIN 4.1 g/dL (3.5-5.0); ALKALINE PHOSPHATASE 78 U/L (38-126); ANION GAP 14.7 MEQ/L (5-15); BLOOD UREA NITROGEN 16 mg/dL (7-17); CHLORIDE 99 mmol/L (98-107); Calcium 9.4 mg/dL (8.4-10.2); Carbon Dioxide 26 mmol/L (22-30); Creatinine 1 0.77 mg/dL (0.52-1.04); EST GLOMERULAR FILTRATION RATE > 60.0 ML/MIN; Glucose 122 mg/dL (74-106); MAGNESIUM 1.8 mg/dL (1.6-2.3); NT PRO BNP 78.4 pg/mL (0-900); Potassium 3.9 mmol/L (3.5-5.1); SGOT/AST 55 U/L (14-36); SGPT/ALT 70 U/L (0-35); SODIUM 135 mmol/L (137-145); Total Protein 6.7 g/dL (6.3-8.2)
[2021-08-18 18:31] LABS: INFLUENZA A NEGATIVE (NEGATIVE); INFLUENZA B NEGATIVE (NEGATIVE)
[2021-08-18] MEDS ORDERED: ROCEPHIN 1 Gm-D5w 50 ml Bag** 1 G/50 ML IVPB IV STA (21:21)
[2021-08-18] MEDS ORDERED: ROCEPHIN 1 Gm-D5w 50 ml Bag** 1 G/50 ML IVPB IV ONE (21:25)
[2021-08-19] MEDS ORDERED: DUONEB 0.5-3 MG/3 ml Neb IH ONE ×2 (06:15→06:24)
[2021-08-19] MEDS ORDERED: solu-MEDROL IV ONE (06:35)
[2021-08-19] MEDS ORDERED: solu-MEDROL ONE (06:41)
[2021-08-19] MEDS ORDERED: Sterile H2O 10 ml IJ ONE ×2 (06:42→07:16)
[2021-08-19 07:02] LABS: BASOPHIL % 0.1 % (0.0-0.4); Basophil (Absolute #) 0.01 (0-0.4); Eosinophil % 0.1 % (0.00-5.0); Eosinophil (Absolute #) 0.01 (0-0.5); Hematocrit 39.2 % (35-47); Hemoglobin 12.3 gm/dl (12.0-16.0); Lymphocyte (Absolute #) 1.14 (1.0-4.6); Lymphocytes % 8.7 % (24.0-44.0); Mean Corpuscular Hemoglobin 31.7 pg (26-32); Mean Corpuscular Hgb Concent. 31.4 g/dl (32-36); Mean Platelet Volume 9.6 fl (7.5-11.0); Monocyte (Absolute #) 0.47 (0.0-1.3); Monocytes % 3.6 % (0.0-12.0); Neutrophil % 87.5 % (36.0-66.0); Platelet Count 234 K/mm3 (150-450); Red Blood Count 3.88 M/mm3 (4.1-5.4); Red Cell Distribution Width 14.6 % (11.5-14.0); White Blood Count 13.1 K/mm3 (4.0-10.5)
[2021-08-19 07:27] LABS: ALBUMIN 3.7 g/dL (3.5-5.0); ALKALINE PHOSPHATASE 66 U/L (38-126); BLOOD UREA NITROGEN 23 mg/dL (7-17); Calcium 8.6 mg/dL (8.4-10.2); Carbon Dioxide 27 mmol/L (22-30); Creatinine 1 0.56 mg/dL (0.52-1.04); EST GLOMERULAR FILTRATION RATE > 60.0 ML/MIN; Glucose 120 mg/dL (74-106); SGOT/AST 57 U/L (14-36); SGPT/ALT 58 U/L (0-35); SODIUM 137 mmol/L (137-145); Total Protein 6.2 g/dL (6.3-8.2)
[2021-08-19 07:28] LABS: CHLORIDE 101 mmol/L (98-107)
[2021-08-19 07:30] LABS: ANION GAP 13 MEQ/L (5-15)
--- NOTE | 2021-08-19 08:33 | XRAY ---
Indication: Short of breath. Comparison: July 17, 2021. Portable apical lordotic chest unchanged again demonstrating COPD, scattered subsegmental atelectasis/scarring, and a few scattered tiny calcified granulomas. Heart not enlarged. Bony thorax intact again with mild osteopenia. Impression: Continued nonacute chest with chronic features.
[2021-08-19] MEDS ORDERED: ROCEPHIN 2 Gm-D5w 50ML BAG** 2 G/50 ML IVPB IV STA (08:46)
[2021-08-19 09:49] VITALS: O2SAT 98
[2021-08-19] MEDS ORDERED: REMDESIVIR 200 MG in Sodium Chloride 0.9% 250 ML 250 ML IV ONE (10:30)
[2021-08-19 13:10] VITALS: BP 139/93; PULSE 95
== END 2021-08-19 13:11 | disposition home or self-care (01) ==
LOC: ED 16:10
DX: J44.1 Chronic obstructive pulmonary disease with (acute) exacerbation (principal); Z79.899 Other long term (current) drug therapy
CPT/HCPCS: 36000; 36415; 71045; 80053; 81001; 83735; 83880; 84484; 85025; 87040; 87400; 93005; 93041; 94640; 94760; 96374; 99285; U0003; J0696; J2920; J2930; A9270-GY